=== PATIENT | female | born 1935 | race Caucasian/White ===

== ENCOUNTER → 2016-06-25 | Day surgery (SDC) | payer OTHER, MEDICARE ==
[2016-06-24 07:36] VITALS: BMI 27.0
[~2016-06-25] VITALS: Ht 149.9 cm; Wt 60.9 kg
[~2016-06-25] MED LIST: ASPI81TA28 PO; CHOL1000 PO; CLOB-65 EXT; CLOP1TAB15 PO; GEMF600T3 PO; LEVO75TA PO; LIDOCAINE HCL 2% 2 ML VIAL (20MG/ML) ONE; MOME50SP5; MULTTAB58 PO; PANT40TA PO; PLV75 PO; PROPOFOL IV EMULSION 10 MG/ML 20 ML VIAL IV ONE
[2016-06-25 09:13] VITALS: Ht 149.9 cm; Wt 60.9 kg
--- NOTE | 2016-06-25 09:30 | Endo History and Physical ---
History & Physical Date of Service: June 25, 2016. Chief Complaint: heme positive stool Referring Physician: Dr. MALDONADO History of Present Illness Hemoccult positive stool Past Surgical History Hx Cardiac Surgery: No Hx Internal Defibrillator: No Hx Pacemaker: No Hx Abdominal Surgery: No Hx of Implantable Prosthesis: No Hx Post-Op Nausea and Vomiting: No Hx Cancer Surgery: No Hx Thoracic Surgery: No Hx Orthopedic: Yes (RT RCR) Hx Urinary Tract Surgery: No Family History Colon CA Social History Smoking Status: Never Smoker Hx Substance Use: No Hx Alcohol Use: Yes (1 GLASS OF WINE DAILY) Allergies Coded Allergies: Pneumococcal Polysaccharides (Verified Allergy, Intermediate, local reaction, 06/25/16) Alendronate (Verified Adverse Reaction, Intermediate, GI upset, 06/25/16) Ezetimibe (Verified Adverse Reaction, Intermediate, elevated LFT's, ) Citalopram (Verified Adverse Reaction, Mild, headache, 06/25/16) Current Medications Reported Home Medications Medications Dose Route/Sig Max Daily Dose Days Date Category Plavix (Clopidogrel Bisulfate) 75 Mg Tab 75 Mg PO DAILY 06/25/16 Reported Aspirin Ec (Aspirin) 81 Mg Tab 81 Mg PO DAILY 06/25/16 Reported Lopid (Gemfibrozil) 600 Mg Tab 600 Mg PO BID 06/24/16 Reported Vitamin D3 (Cholecalciferol) 1,000 Unit Tab 1 Tab PO BID 90 06/24/16 Reported Protonix (Pantoprazole Sodium) 40 Mg Tab 40 Mg PO BID 06/24/16 Reported Nasonex (Mometasone Furoate) Hur[place] 1 Hurlock NA DAILY PRN 02/03/13 Reported Temovate 0.05% (Clobetasol Propionate) Cr 1 Appln EXT BID PRN 02/03/13 Reported Synthroid (Levothyroxine Sodium) 75 Mcg Tab 75 Mcg PO QAM 02/03/13 Reported Multivitamin (Multiple Vitamin) 1 Tab Tab 1 Tab PO QAM 12/05/11 Reported Vital Signs Weight (Kilograms): 60.91 Height (Feet): 4 Height (Inches): 11 Physical Exam General Appearance: WD/WN, no apparent distress Respiratory/Chest: Auscultation: breath sounds normal, no wheezing Cardiovascular: Heart Auscultation: RRR, no murmurs Abdomen: Inspection & Palpation: soft, no tenderness, guarding & rebound Assessment and Plan EGD today.
--- NOTE | 2016-06-25 09:56 | GI REPORT ---
Procedure Date: 06/25/2016 9:36 AM Procedure: Upper GI endoscopy Indications: Heme positive stool Medicines: Monitored Anesthesia Care Complications: No immediate complications. Estimated blood loss: None. Estimated Blood Loss: Estimated blood loss: none. Procedure: Pre-Anesthesia Assessment: - Prior to the procedure, a History and Physical was performed, and patient medications, allergies and sensitivities were reviewed. The patient's tolerance of previous anesthesia was reviewed. - ASA Grade Assessment: III - A patient with severe systemic disease. After obtaining informed consent, the endoscope was passed under direct vision. Throughout the procedure, the patient's blood pressure, pulse, and oxygen saturations were monitored continuously. The Scope was introduced through the mouth, and advanced to the third part of duodenum. The upper GI endoscopy was accomplished with ease. The patient tolerated the procedure well. Findings: The upper third of the esophagus, middle third of the esophagus and lower third of the esophagus were normal. The Z-line was regular. A small hiatus hernia was present. The entire examined stomach was normal. Biopsies were taken with a cold forceps for Helicobacter pylori testing. The examined duodenum was normal. Verification of patient identification for the specimen was done by the physician and nurse using the patient's name, date and medical record number. Impression: - Normal upper third of esophagus, middle third of esophagus and lower third of esophagus. - Z-line regular. - Small hiatus hernia. - Normal stomach. Biopsied. - Normal examined duodenum. Recommendation: - Perform a colonoscopy at appointment to be scheduled. - Await pathology results. - Continue present medications. - Discharge patient to home (with escort). Marcio Mullins M.D. Marcio Mullins MD 06/25/2016 9:55:21 AM This report has been signed electronically. Note Initiated On: 06/25/2016 9:36 AM I attest to the content of the Intraoperative Record and orders documented therein, exceptions below
--- NOTE | 2016-06-25 10:11 | Discharge Instructions ---
Endoscopy Patient Instructions Date / Procedure(s) Performed June 25, 2016. EGD Allergy Information Coded Allergies: Pneumococcal Polysaccharides (Verified Allergy, Intermediate, local reaction, 06/25/16) Alendronate (Verified Adverse Reaction, Intermediate, GI upset, 06/25/16) Ezetimibe (Verified Adverse Reaction, Intermediate, elevated LFT's, ) Citalopram (Verified Adverse Reaction, Mild, headache, 06/25/16) Discharge Date / Findings June 25, 2016. Small hiatal hernia, gastric biopsy for H pylori obtained. Medication Instructions Stopped Medication(s): plavix stopped. Restart Stopped Medication(s): Restart all medications. Colonoscopy to be scheduled. Provider Instructions Activity Restrictions - No exercising or heavy lifting for 24 hours. - Do not drink alcohol the day of the procedure. - Do not drive a car or operate machinery until the day after the procedure. - Do not make any important decisions or sign important papers in 24 hours after the procedure. Following Day: - Return to full activity which may include returning to work/school. Diet Start your diet with liquids and light foods (jello, soup, juice, toast). Then eat your usual diet if not nauseated. Treatment For Common After Affects For mild abdominal pain, bloating, or excessive gas: - Rest - Eat lightly - Lie on right side Follow-Up Information Follow-up with Dr. MALDONADO as scheduled Anesthesia Information What You Should Know You have had a procedure that required some medicine to reduce anxiety and discomfort. This treatment is called moderate sedation. After receiving the treatment, you may be sleepy, but you will be able to breathe on your own. The effects of the treatment may last for several hours. Follow these instructions along with Activity/Diet recommendations noted above: * Do NOT do anything where dizziness or clumsiness would be dangerous. * Rest quietly at home today, then you can be up and about tomorrow. * Have a responsible person stay with you the rest of today. * You may have had an I.V. today. If so, you may take the dressing off later today. Recommendations Call your doctor if: * Trouble breathing * Continuous vomiting for more than 24 hours * Temperature above 101 degrees * Severe abdominal pain or bloating * Pain not relieved by pain medicine ordered * There is increased drainage or redness from any incision * A large amount of rectal bleeding greater than 2-3 tablespoons. (If you had a polyp/s removed or have hemorrhoids, a small amount of blood - from the rectum is to be expected.) * You have any unanswered questions or concerns. IN THE EVENT OF A SERIOUS EMERGENCY, GO TO THE NEAREST EMERGENCY ROOM Your discharge instructions were prepared by provider Marcio Mullins. Patient Instructions Signature Page Jeniffer Lin Patient (or Guardian) Signature/Date: I have read and understand the instructions given to me by my caregivers. Caregiver/RN/Doctor Signature/Date: The above-named patient and/or guardian has received patient instructions on this date. + Original Patient Signature Page (only) stays with chart. Please make copy for patient.
[2016-06-25 10:25] VITALS: BP 108/67; PULSE 62; O2SAT 96
--- NOTE | 2016-06-25 10:58 | Anesthesia Progress Nt - [facility] ---
Anesthesia Post Op Note Date & Time June 25, 2016 at 10:58 Vital Signs Pain Intensity: 0 Vital Signs Past 12 Hours Date Time Temp Pulse Resp B/P Pulse Ox O2 Delivery O2 Flow Rate FiO2 06/25/16 10:09 62 20 115/67 96 Room Air 06/25/16 09:54 59 20 113/68 96 Room Air 06/25/16 09:22 36 60 20 133/72 97 Room Air Notes Mental Status: alert / awake / arousable, participated in evaluation Pt Amnestic to Procedure: Yes Nausea / Vomiting: adequately controlled Pain: adequately controlled Airway Patency, RR, SpO2: stable & adequate BP & HR: stable & adequate Hydration State: stable & adequate Anesthetic Complications: no major complications apparent
== END | disposition home or self-care (01) ==
LOC: C.GI 08:46
PROVIDERS: ATTEND Internal Medicine Gastroenterology
DX: K44.9 Diaphragmatic hernia without obstruction or gangrene (principal); R19.5 Other fecal abnormalities; Z80.0 Family history of malignant neoplasm of digestive organs; Z79.82 Long term (current) use of aspirin; Z79.899 Other long term (current) drug therapy; Z79.02 Long term (current) use of antithrombotics/antiplatelets

== ENCOUNTER 2021-07-24 16:54 | Observation (INO) ==
[2021-07-24 17:42] LABS: iSTAT Creatinine 0.5 mg/dl (0.6-1.3); iSTAT Ionized Calcium 1.19 mmol/l (1.12-1.32); iSTAT Potassium 4.1 mmol/L (3.3-5.0)
[2021-07-24] MEDS ORDERED: MoRPHine SULFATE 4 MG/ML 1 ML CARP\\VIAL IV STA ×2 (17:49→19:04)
[2021-07-24] MEDS ORDERED: ONDANSETRON INJ 2 MG/ML 2 ML VIAL IV STA (17:49)
[2021-07-24 17:56] LABS: Albumin Globulin Ratio 1.4 (0.9-2); Albumin Level 4.7 gm/dl (3.4-5.0); BUN Creatinine Ratio 31.7 (10-20); Bilirubin,Total 0.5 mg/dl (0.2-1.0); Calcium 9.8 mg/dl (8.5-10.1); Creatinine Clr Calc Pharmacy 57.9 ml/min; Est GFR (Non-African American) 83.7 ml/min; Globulin 3.3 gm/dl (2.5-4.0); Potassium 3.9 mmol/L (3.5-5.1)
[2021-07-24 17:57] LABS: Partial Thromboplastin Time 27.2 Seconds (21.0-31.0); Prothrombin Time 10.9 Seconds (9.0-12.0)
[2021-07-24 17:58] LABS: Basophils # (auto) 0.03 K/uL (0-0.2); Basophils % (auto) 0.5 %; Eosinophils # (auto) 0.08 K/uL (0-0.5); Eosinophils % (auto) 1.2 %; Hematocrit (blood only) 41.8 % (37-47); Hemoglobin 14.4 g/dL (12.0-16.0); Immature Granulocytes # (auto) 0.02 K/uL (0.00-0.02); Immature Granulocytes % (auto) 0.3 %; Lymphocytes # (auto) 1.98 K/uL (1.2-3.4); Mean Corpuscular Hemoglobin 30.9 pg (25-34); Mean Corpuscular Hgb Conc 34.4 g/dL (32-36); Mean Corpuscular Volume 89.7 fL (80-100); Mean Platelet Volume 9.7 fL (7.4-10.4); Monocytes # (auto) 0.65 K/uL (0.11-0.59); Monocytes % (auto) 9.8 %; Neutrophils # (auto) 3.84 K/uL (1.4-6.5); Neutrophils % (auto) 58.2 %; Platelet Count 333 K/uL (130-400); RDW Coefficient of Variation 12.8 % (11.5-14.5); RDW Standard Deviation 41.5 fL (36.4-46.3); Red Blood Count 4.66 M/uL (4.2-5.4)
[2021-07-24 18:00] LABS: Troponin I High Sensitivity 3.5 pg/ml (0-14)
--- NOTE | 2021-07-24 18:23 | Emergency Department Note ---
Impression & Plan Acute thoracic back pain, Chest pain, Chronic hyponatremia ED Provider Note Provider: Jay Gardner MD DATE OF SERVICE: 07/24/2021 CHIEF COMPLAINT: Referred for left shoulder blade pain HISTORY OF PRESENT ILLNESS: Patient is a 85-year-old female past medical history of hypothyroidism, PVD, and TIA presenting here referred from the outpatient clinic today for onset 2 days ago of some pain around the left shoulder. Does not recall any lifting or trauma but worsened yesterday into today. Patient states a little bit of shortness of breath mainly related to the pain which is worse with certain movements. Patient denies any numbness or tingling in her arms. She denies any abdominal pain. Movement of the left frontal to anterior chest tightness. She has been trying some Tylenol which did not help much. No reported leg swelling or pain in the lower extremities. REVIEW OF SYSTEMS: A total of 10 review of systems was obtained and negative except as stated above in the HPI. PAST MEDICAL HISTORY: As noted above MEDICATIONS: Reviewed home medication list SOCIAL HISTORY: Lives at home by herself, non-smoker PHYSICAL EXAM: GENERAL: alert and oriented however appears uncomfortable laying on her right side on the bed grimacing Head: normocephalic and atraumatic EYES: No injection, discharge or icterus. NECK: Trachea midline. LUNGS: Airway patent. No retractions. Breath sounds clear with good air entry bilaterally. HEART: Regular rate and rhythm. No chest wall tenderness ABDOMEN: Soft and non-tender, without guarding or rebound. No hepatosplenomegaly or masses BACK: No midline tenderness, some very slight left thoracic tenderness medial scapula. SKIN: Acyanotic, warm, dry, without rashes EXTREMITIES: Without swelling, tenderness or deformity with 2+ bilateral radial pulses. NEUROLOGICAL: No focal deficits. No aphasia. No facial droop or slurred speech. EK bpm sinus rhythm first-degree AV block. No PVC or PAC. No acute ST segment elevation or depression with a QTC of 435. CONTINUOUS CARDIAC MONITORING: was ordered and showed a heart rate of 60s-80s b pm in normal sinus rhythm PDMP was checked without noted issue. Patient's laboratory studies and imaging reviewed. Differential includes Cardiac ischemia, aortic dissection, pulmonary embolism, pneumothorax, pneumonia, pericarditis, myocarditis, esophageal rupture, GERD, cholecystitis, pancreatitis, musculoskeletal, as well as other pathologies. IMPRESSION/MEDICAL DECISION MAKING: Severe atraumatic pain of the left shoulder blade with some radiation of the anterior left chest. Patient with significant discomfort but not hypoxic here. Question possible dissection with lower suspicion for PE. Not having other infectious symptoms. EKG without findings concerning for STEMI at this time. Less likely to be cardiac but troponin was sent. Given some morphine for pain. Sent for CT dissection study of the chest. Patient not having other abdominal swelling or lower extremity swelling or pain. Doubt this is spinal in nature. Doubt heart failure at this time. There is no traumatic history indicative of bony injury orthopedic injury. No significant hypersensitivity of skin or overlying rash at this time consistent with zoster. Blood work without anemia or leukocytosis. Chronic hyponatremia. No significant renal dysfunction or findings consistent with hepatitis or pancreatitis. Negative COVID test. CT of the chest per radiology without evidence of dissection or other acute intrathoracic pathology. Unclear etiology for the patient severe pain required several doses of morphine. Given a little bit of Toradol. Given her age with the severity of the pain which is poorly controlled at this time and feel that further observation could be beneficial for pain regimen optimization and urther elucidation of other possible pathology. Patient was in agreement and the hospitalist contacted. DIAGNOSIS: Intractable acute left thoracic back pain, chest pressure, chronic hyponatremia DISPOSITION: Hospitalist will evaluate Patient was agreeable with this plan. Past Med/Surg History Medical History (Updated 07/24/21 @ 22:11 by Jay Gardner M.D.) Anxiety GERD (gastroesophageal reflux disease) History of colon polyps History of gastric ulcer Hyperlipidemia Hypothyroidism On anticoagulant therapy plavix daily Transient ischemic attack (TIA) 2014--no deficits--reason for plavix Surgical History History of bilateral tubal ligation History of cataract surgery RIGHT CATARACT on 07/27/18: was given 2mg of IV versed History of colonoscopy History of dilatation and curettage History of esophagogastroduodenoscopy (EGD) History of left breast biopsy benign History of repair of right rotator cuff Family History Mother Family history of diabetes mellitus Daughter Family hx of colon cancer Other No family history of adverse response to anesthesia Social History Smoking Status: Never smoker Second Hand Exposure: No; Hx Alcohol Use: Yes Alcohol type: wine Hx Substance Use: No Preferred Language: Maltese Communication Ability: Effective Board Certified Behavioral Analyst Required: No Beliefs That Will Affect Care: None Current Living Situation: Spouse Feels Safe at Home: Yes Assistive Devices: Glasses Allergies Allergies Allergy/AdvReac Type Severity Reaction Status Date / Time pneumococcal vaccine Allergy Intermediate local Verified 07/24/21 17:55 reaction alendronate sodium AdvReac Intermediate GI upset Verified 07/24/21 17:55 calcium AdvReac Intermediate bloating, Verified 07/24/21 17:55 constipation citalopram AdvReac Intermediate headache Verified 07/24/21 17:55 ezetimibe AdvReac Intermediate elevated Verified 07/24/21 17:55 LFT's Home Meds Home Medications Medication Instructions Recorded Confirmed ascorbic acid (vitamin C) 500 mg 500 mg PO QDL 07/05/18 07/24/21 tablet (Vitamin C) cholecalciferol (vitamin D3) 25 2,000 unit PO QDL 07/05/18 07/24/21 mcg (1,000 unit) tablet clopidogrel 75 mg tablet (Plavix) 75 mg PO QAM 07/05/18 07/24/21 gemfibrozil 600 mg tablet 600 mg PO BID 07/05/18 07/24/21 polyethylene glycol 3350 17 17 g PO QAM 07/05/18 07/24/21 gram/dose oral powder (Miralax) cyanocobalamin (vitamin B-12) 1,000 mcg PO DAILY 07/24/21 07/24/21 1,000 mcg tablet (Vitamin B-12) fluticasone propionate 50 2 spray INTRANASAL DAILY PRN 07/24/21 07/24/21 mcg/actuation nasal spray,suspension levothyroxine 88 mcg tablet 88 mcg PO DAILYBB 07/24/21 07/24/21 [id number] 1 tab PO DAILY 07/24/21 07/24/21 tablet (Multivitamin 50 Plus) Results & Data (ED) Vital Signs Vital Signs - 24 hr 07/24/21 16:57 07/24/21 17:45 07/24/21 17:46 Temperature 36.4 C L Temperature Source Temporal Artery Scan Pulse Rate 69 72 Pulse Rate [Finger] 71 Respiratory Rate 20 18 18 Respiratory Effort / Characteristics Non-Labored Respiratory Depth Normal Blood Pressure 172/86 H Blood Pressure [Right Arm] 161/88 H Blood Pressure Mean 114 Blood Pressure Mean [Right Arm] 112 Blood Pressure Position Sitting Pulse Oximetry 97 96 96 Oxygen Delivery Method Room Air Room Air Room Air Sepsis Recent Fever Within 48 Hours No Sepsis New/Unexplained Change in Mental Status No Sepsis Action Taken by Nursing No Action Required 07/24/21 19:16 07/24/21 21:12 Temperature Temperature Source Pulse Rate Pulse Rate [Finger] 77 70 Respiratory Rate 18 18 Respiratory Effort / Characteristics Respiratory Depth Blood Pressure Blood Pressure [Right Arm] 123/85 155/85 H Blood Pressure Mean Blood Pressure Mean [Right Arm] 97 108 Blood Pressure Position Pulse Oximetry 97 95 Oxygen Delivery Method Room Air Room Air Sepsis Recent Fever Within 48 Hours Sepsis New/Unexplained Change in Mental Status Sepsis Action Taken by Nursing Laboratory Data Result diagrams: 07/24/21 17:19 07/24/21 17:19 Lab Results 07/24/21 07/24/21 07/24/21 Range/Units 17:19 17:19 17:19 WBC 6.60 (4.8-10.8) K/uL RBC 4.66 (4.2-5.4) M/uL Hgb 14.4 (12.0-16.0) g/dL POC Hgb (12.0-16.0) g/dl Hct 41.8 (37-47) % POC Hct (37-47) % MCV 89.7 (80-100) fL MCH 30.9 (25-34) pg MCHC 34.4 (32-36) g/dL RDW Std Deviation 41.5 (36.4-46.3) fL RDW Coeff of Jeanie 12.8 (11.5-14.5) % Plt Count 333 (130-400) K/uL MPV 9.7 (7.4-10.4) fL Immature Gran % (Auto) 0.3 % Neut % (Auto) 58.2 % Lymph % (Auto) 30.0 % Wayne % (Auto) 9.8 % Eos % (Auto) 1.2 % Baso % (Auto) 0.5 % Neut # (Auto) 3.84 (1.4-6.5) K/uL Lymph # (Auto) 1.98 (1.2-3.4) K/uL Wayne # (Auto) 0.65 H (0.11-0.59) K/uL Eos # (Auto) 0.08 (0-0.5) K/uL Baso # (Auto) 0.03 (0-0.2) K/uL Immature Gran # (Auto) 0.02 (0.00-0.02) K/uL PT 10.9 (9.0-12.0) Seconds INR 1.0 (0.9-1.1) APTT 27.2 (21.0-31.0) Seconds PTT Ratio 1.0 POC Sodium (135-144) mmol/L Sodium 130 L (136-145) mmol/L POC Potassium (3.3-5.0) mmol/L Potassium 3.9 (3.5-5.1) mmol/L POC Chloride (101-112) mmol/L Chloride 97 L (98-107) mmol/L Carbon Dioxide 26 (21-32) mmol/L POC Total CO2 (24-31) mmol/L Anion Gap 7 (3-11) POC Anion Gap (16-25) mmol/L POC BUN (7-18) mg/dl BUN 19 (6-23) mg/dl Creatinine 0.60 (0.6-1.2) mg/dl POC Creatinine (0.6-1.3) mg/dl Est Cr Clr Drug Dosing 57.9 ml/min Est GFR ( Amer) 97.0 ml/min Est GFR (Non-Af Amer) 83.7 ml/min BUN/Creatinine Ratio 31.7 H (10-20) Glucose 90 (70-99(Fasting)) mg/dl POC Glucose (other) (70-99) mg/dl Calcium 9.8 (8.5-10.1) mg/dl POC Ioniz Calcium Jennifer (1.12-1.32) mmol/l Total Bilirubin 0.5 (0.2-1.0) mg/dl AST 36 (13-39) U/L ALT 17 (7-52) U/L Alkaline Phosphatase 54 (34-104) U/L Troponin I High Sens 3.5 (0-14) pg/ml Total Protein 8.0 (6.0-8.3) gm/dl Albumin 4.7 (3.4-5.0) gm/dl Globulin 3.3 (2.5-4.0) gm/dl Albumin/Globulin Ratio 1.4 (0.9-2) Lipase (11-82) U/L SARS-CoV-2, RNA, NAAT (NEGATIVE) 07/24/21 07/24/21 07/24/21 Range/Units 17:19 17:25 20:05 WBC (4.8-10.8) K/uL RBC (4.2-5.4) M/uL Hgb (12.0-16.0) g/dL POC Hgb 15.0 (12.0-16.0) g/dl Hct (37-47) % POC Hct 44 (37-47) % MCV (80-100) fL MCH (25-34) pg MCHC (32-36) g/dL RDW Std Deviation (36.4-46.3) fL RDW Coeff of Jeanie (11.5-14.5) % Plt Count (130-400) K/uL MPV (7.4-10.4) fL Immature Gran % (Auto) % Neut % (Auto) % Lymph % (Auto) % Wayne % (Auto) % Eos % (Auto) % Baso % (Auto) % Neut # (Auto) (1.4-6.5) K/uL Lymph # (Auto) (1.2-3.4) K/uL Wayne # (Auto) (0.11-0.59) K/uL Eos # (Auto) (0-0.5) K/uL Baso # (Auto) (0-0.2) K/uL Immature Gran # (Auto) (0.00-0.02) K/uL PT (9.0-12.0) Seconds INR (0.9-1.1) APTT (21.0-31.0) Seconds PTT Ratio POC Sodium 132 L (135-144) mmol/L Sodium (136-145) mmol/L POC Potassium 4.1 (3.3-5.0) mmol/L Potassium (3.5-5.1) mmol/L POC Chloride 97 L (101-112) mmol/L Chloride (98-107) mmol/L Carbon Dioxide (21-32) mmol/L POC Total CO2 25 (24-31) mmol/L Anion Gap (3-11) POC Anion Gap 15.0 L (16-25) mmol/L POC BUN 19 H (7-18) mg/dl BUN (6-23) mg/dl Creatinine (0.6-1.2) mg/dl POC Creatinine 0.5 L (0.6-1.3) mg/dl Est Cr Clr Drug Dosing ml/min Est GFR ( Amer) ml/min Est GFR (Non-Af Amer) ml/min BUN/Creatinine Ratio (10-20) Glucose (70-99(Fasting)) mg/dl POC Glucose (other) 94 (70-99) mg/dl Calcium (8.5-10.1) mg/dl POC Ioniz Calcium Jennifer 1.19 (1.12-1.32) mmol/l Total Bilirubin (0.2-1.0) mg/dl AST (13-39) U/L ALT (7-52) U/L Alkaline Phosphatase (34-104) U/L Troponin I High Sens (0-14) pg/ml Total Protein (6.0-8.3) gm/dl Albumin (3.4-5.0) gm/dl Globulin (2.5-4.0) gm/dl Albumin/Globulin Ratio (0.9-2) Lipase 46 (11-82) U/L SARS-CoV-2, RNA, NAAT NEGATIVE (NEGATIVE) Administered Medications Discontinued Medications Ioversol (Optiray 320 125ml) 120 ml IV ONCE ONE Stop: 07/24/21 18:36 Last Admin: 07/24/21 18:36 Dose: 120 ml Documented by: [id number] Ketorolac Tromethamine (Ketorolac Tromethamine 15 Mg/Ml Vial) 10 mg IV NOW ONE Stop: 07/24/21 19:51 Last Admin: 07/24/21 20:01 Dose: 10 mg Documented by: [id number] Morphine Sulfate (Morphine Sulfate 4 Mg/Ml 1 Ml Carp\Vial) 4 mg IV NOW STA Stop: 07/24/21 17:50 Last Admin: 07/24/21 17:53 Dose: 4 mg Documented by: [id number] Morphine Sulfate (Morphine Sulfate 4 Mg/Ml 1 Ml Carp\Vial) 4 mg IV NOW STA Stop: 07/24/21 19:05 Last Admin: 07/24/21 19:12 Dose: 4 mg Documented by: [id number] Ondansetron HCl (Ondansetron Inj 2 Mg/Ml 2 Ml Vial) 4 mg IV NOW STA Stop: 07/24/21 17:50 Last Admin: 07/24/21 17:53 Dose: 4 mg Documented by: [id number] Imaging Data Radiologist's Impression: Chest X-Ray 07/24/21 17:31 XR chest 1V portable CLINICAL HISTORY: Atypical chest pain TECHNIQUE: Single frontal radiograph of the chest was obtained. Comparison: Comparison is made to chest radiograph 02/03/2013 FINDINGS: No lines and tubes are seen. Calcified aortic knob is seen. The aorta is tortuous. The lungs are clear. No evidence of pleural effusion or pneumothorax. IMPRESSION: No acute chest disease. ACT 112: Negative or not required by law. Electronically signed by: Mono Long M.D. 07/24/2021 6:20 PM Chest CTA 07/24/21 17:49 CT angio chest dissec wo/w con CLINICAL HISTORY: L shoulder pain to chest pain severe TECHNIQUE: Multidetector row helical CT of the chest was performed before and after injection of IV contrast. Coronal and sagittal reformations were obtained. Automated dose lowering techniques and/or adjustment according to patient size were utilized for this exam. CT DOSE: 751.53 mGy.cm Comparison: None available at the time of this dictation. FINDINGS: Lungs and pleura: Atelectasis versus scarring is seen in the dependent portions of the lungs. Heart and pericardium: Heart size is normal. No pericardial effusion. Vessels: No aortic dissection or intramural hematoma is seen. Atherosclerotic disease is seen in the coronary arteries. Mediastinum and fernando: Unremarkable. Chest wall and lower neck: Unremarkable. Abdomen: Unremarkable. Bones: Degenerative changes in the thoracic spine. Multilevel compression deformities are seen, favored to be chronic. IMPRESSION: No acute abnormality and in particular no evidence of acute aortic injury. Multilevel thoracic spinal compression deformities are favored to be chronic. ACT 112: Negative or not required by law. Electronically signed by: Mnoo Long M.D. 07/24/2021 7:24 PM Discharge Plan Visit Data Chief Complaint: Back Injury/Pain Stated Complaint: BACK PAIN ED Provider: Jay Gardner Discharge Problem: Acute thoracic back pain, Chest pain, Chronic hyponatremia Patient Disposition: Being Evaluated by Hospitalist Forms Stand Alone Forms: Flipboard Prescriptions Prescriptions: No Action polyethylene glycol 3350 [Miralax] 17 gram/dose Powder 17 g PO QAM RF: 0 clopidogrel [Plavix] 75 mg Tablet 75 mg PO QAM RF: 0 ascorbic acid (vitamin C) [Vitamin C] 500 mg Tablet 500 mg PO QDL RF: 0 gemfibrozil 600 mg Tablet 600 mg PO BID RF: 0 cholecalciferol (vitamin D3) 1,000 unit Tablet 2,000 unit PO QDL RF: 0 cyanocobalamin (vitamin B-12) [Vitamin B-12] 1,000 mcg Tablet 1,000 mcg PO DAILY RF: 0 levothyroxine 88 mcg tablet 88 mcg PO DAILYBB RF: 0 fluticasone propionate [Flonase] 50 mcg/actuation Nogal,Suspension 2 spray INTRANASAL DAILY PRN (Reason: Congestion) RF: 0 Multivitamin 50 Plus Tablet 1 tab PO DAILY RF: 0 Referrals Referrals: Kaylee Watts MD [Primary Care Provider] -
[2021-07-24] MEDS ORDERED: OPTIRAY 320 125ml IV ONE (18:35)
--- NOTE | 2021-07-24 19:27 | CT Scan Report ---
CT angio chest dissec wo/w con CLINICAL HISTORY: L shoulder pain to chest pain severe TECHNIQUE: Multidetector row helical CT of the chest was performed before and after injection of IV c ontrast. Coronal and sagittal reformations were obtained. Automated dose lowering techniques and/or a djustment according to patient size were utilized for this exam. CT DOSE: 751.53 mGy.cm Comparison: None available at the time of this dictation. FINDINGS: Lungs and pleura: Atelectasis versus scarring is seen in the dependent portions of the lungs. Heart and pericardium: Heart size is normal. No pericardial effusion. Vessels: No aortic dissection or intramural hematoma is seen. Atherosclerotic disease is seen in the coronary arteries. Mediastinum and fernando: Unremarkable. Chest wall and lower neck: Unremarkable. Abdomen: Unremarkable. Bones: Degenerative changes in the thoracic spine. Multilevel compression deformities are seen, favor ed to be chronic. IMPRESSION: No acute abnormality and in particular no evidence of acute aortic injury. Multilevel thoracic spinal compression deformities are favored to be chronic. ACT 112: Negative or not required by law. Electronically signed by: Mono Long M.D. 07/24/2021 7:24 PM
[2021-07-24] MEDS ORDERED: KETOROLAC TROMETHAMINE 15 MG/ML VIAL IV ONE (19:50)
--- NOTE | 2021-07-24 22:55 | History and Physical Report ---
DATE OF ADMISSION: 07/24/2021. CHIEF COMPLAINT: Severe left shoulder blade pain. HISTORY OF PRESENT ILLNESS: This is an 85-year-old female with past medical history significant for hypothyroidism, hyperlipidemia, atherosclerosis of both carotid arteries, internal hemorrhoids, nonalcoholic fatty liver disease, history of sigmoid diverticulosis, senile osteoporosis, history of colonic polyps, history of TIA, obesity, history of peptic ulcer disease, statin intolerance, who lives at home, presents with severe left shoulder pain. The patient's stretched her hands to pick something on the cupboard on Wednesday and since then she has some soreness on Wednesday, Wednesday. Since Wednesday night, she is having significant pain. Any movement causing significant shooting pain, that is the reason she came here. No pain in the arms. Yesterday, she had some pain radiating to the chest, mild chest discomfort that is gone now. Denies any shortness of breath. No nausea, no vomiting, no dizziness, no headache, no neck pain, no back pain, no leg pains. No blurred visions, no earache, no runny nose, no sore throat, no cough, no fevers. Normal bowel and bladder movements. Currently, resting comfortably and hemodynamically stable. With the pain medication, the pain is much improved. ALLERGIES: PNEUMOCOCCAL VACCINE, ALENDRONATE SODIUM, CALCIUM, CITALOPRAM, EZETIMIBE. PAST MEDICAL HISTORY: As mentioned above. PAST SURGICAL HISTORY: Colonoscopy, colonoscopy with biopsy, EGD, ligation of oviducts, cataract surgery, right shoulder arthroscopy. MEDICATIONS: The patient is on ascorbic acid 500 mg p.o. daily, vitamin D 2000 units p.o. daily, Plavix 75 mg p.o. daily, vitamin B12 1000 mcg p.o. daily, Flonase 2 sprays intranasal daily p.r.n., gemfibrozil 600 mg p.o. b.i.d., levothyroxine 88 mcg p.o. daily, multivitamins 1 tablet p.o. daily, MiraLax 17 g p.o. daily. FAMILY HISTORY: Significant for mother had lymphoma, father has heart disorder, daughter has colon cancer. SOCIAL HISTORY: . No smoking. Alcohol, one glass of wine with dinner. No drug use. REVIEW OF SYSTEMS: As per HPI. Rest of the review of systems is negative. PHYSICAL EXAMINATION: GENERAL: The patient is of moderate build, not in acute distress. VITAL SIGNS: Temperature 36.4, pulse 70, respiratory rate 18, blood pressure 155/85, oxygen 95% on room air. HEENT: Pupils equal, round, and reactive to light. Oral mucosa moist. LUNGS: No JVD, no neck masses. CARDIOVASCULAR: S1 and S2 heard. Regular rate and rhythm. No murmur, no gallop. RESPIRATORY SYSTEM: Normal AP diameter. No accessory muscle use. No wheezing, no crackles. ABDOMEN: Soft. Bowel sounds are present, nontender, no distention. CENTRAL NERVOUS SYSTEM: Cranial nerves II through XII are grossly intact, nonfocal. EXTREMITIES: No edema, no erythema. MUSCULOSKELETAL: Point tenderness in the left shoulder blade. Range of movements is normal in the left upper extremity. LABORATORY DATA: WBC 6.6, hemoglobin 14.4, hematocrit 41.8, platelets 333. PT 10.9, INR 1, APTT 27.2. Sodium 130, potassium 3.9, chloride 97, CO2 of 26, BUN 19, creatinine 0.6, serum glucose 90, calcium 9.8, total bilirubin 0.5, AST 36, ALT17, alkaline phosphatase 54. Troponin 1 high sensitivity 3.5. Lipase 46. SARS-CoV-2 rapid test negative. IMAGING DATA: Chest x-ray, no acute disease. CT of the chest, no acute abnormality, multilevel thoracic spine compression deformities, are favored to be chronic. EKG: Sinus rhythm with first-degree AV block at a rate of 68, no significant change was found. ASSESSMENT AND PLAN: This is an 85-year-old female who presents with severe left shoulder blade pain and also mild chest discomfort, currently resolved. 1. Severe left shoulder blade pain: Improved with the pain medication given in the ER. Imaging studies are unremarkable. Will observe in the hospital. When stable, PT, OT, pain control. If not improving, may need to consult pain management. 2. Mild chest discomfort: Could be from the left shoulder blade pain, currently asymptomatic. Will follow the repeat EKG and repeat troponins and if any concern, will get echo and cardiac consult. 3. History of hypothyroidism: Continue Synthroid. 4. Hyperlipidemia: On gemfibrozil. 5. History of transient ischemic attack: On Plavix and gemfibrozil. 6. Deep venous thrombosis prophylaxis: Lovenox. DISPOSITION: Observe in med tele. PT/OT prior to discharge. Social service to help with discharge planning. Job ID: [id number] [facility] HOSPITALNayeli
[2021-07-24] MEDS ORDERED: ENOXAPARIN INJ 40 MG/0.4 ML SYR SQ SCH (23:22)
[2021-07-24] MEDS ORDERED: ACETAMINOPHEN 325 MG TAB PO PRN (23:22)
[2021-07-24] MEDS ORDERED: HYDROmorphone INJ 0.5 MG/0.5 ML SYR IV PRN (23:22)
[2021-07-24] MEDS ORDERED: ONDANSETRON INJ 2 MG/ML 2 ML VIAL IV PRN (23:22)
[2021-07-24] MEDS ORDERED: oxyCODONE HCL IR 5 MG TAB (IMMEDIATE RELEASE) PO PRN (23:22)
[2021-07-24] MEDS ORDERED: NITROGLYCERIN SL 0.4 MG/TAB TAB SL PRN (23:22)
[2021-07-24] MEDS ORDERED: FLUTICASONE PROPIONATE NA SPR 16 GM BTL PRN (23:22)
[2021-07-25 05:44] LABS: Basophils # (auto) 0.02 K/uL (0-0.2); Basophils % (auto) 0.3 %; Eosinophils # (auto) 0.07 K/uL (0-0.5); Eosinophils % (auto) 1.2 %; Hematocrit (blood only) 38.7 % (37-47); Hemoglobin 13.4 g/dL (12.0-16.0); Immature Granulocytes # (auto) 0.01 K/uL (0.00-0.02); Immature Granulocytes % (auto) 0.2 %; Lymphocytes # (auto) 1.72 K/uL (1.2-3.4); Lymphocytes % (auto) 28.5 %; Mean Corpuscular Hemoglobin 31.1 pg (25-34); Mean Corpuscular Hgb Conc 34.6 g/dL (32-36); Mean Corpuscular Volume 89.8 fL (80-100); Mean Platelet Volume 9.3 fL (7.4-10.4); Monocytes # (auto) 0.69 K/uL (0.11-0.59); Monocytes % (auto) 11.4 %; Neutrophils # (auto) 3.53 K/uL (1.4-6.5); Neutrophils % (auto) 58.4 %; Platelet Count 279 K/uL (130-400); RDW Coefficient of Variation 12.6 % (11.5-14.5); RDW Standard Deviation 41.3 fL (36.4-46.3); Red Blood Count 4.31 M/uL (4.2-5.4); White Blood Count 6.04 K/uL (4.8-10.8)
[2021-07-25 06:08] LABS: BUN Creatinine Ratio 26.6 (10-20); Calcium 9.4 mg/dl (8.5-10.1); Creatinine Clr Calc Pharmacy 54.6 ml/min; Est GFR (Non-African American) 81.9 ml/min; Potassium 4.5 mmol/L (3.5-5.1)
[2021-07-25] MEDS ORDERED: LEVOTHYROXINE SODIUM 88 MCG TABLET PO SCH (06:30)
[2021-07-25] MEDS ORDERED: gemfibroziL 600 MG TAB PO SCH (09:00)
[2021-07-25] MEDS ORDERED: MULTIVITAMIN TAB PO SCH (09:00)
[2021-07-25] MEDS ORDERED: CYANOCOBALAMIN (B-12) 500 MCG TABLET PO SCH (09:00)
[2021-07-25] MEDS ORDERED: POLYETHYLENE (MIRALAX) 17 GM PACK PO SCH (09:00)
[2021-07-25] MEDS ORDERED: CLOPIDOGREL BISULFATE 75 MG TAB PO SCH (09:00)
--- NOTE | 2021-07-25 10:47 | XRay Report ---
XR shoulder LT min 2V routine CLINICAL HISTORY: Left shoulder pain. COMPARISON: None FINDINGS: Alignment of the left shoulder is anatomic. There is no acute fracture. This no suspicious osseous lesion. There is moderate osteoarthritis of the left acromioclavicular joint and mild osteoa rthritis of the glenohumeral joint. IMPRESSION: 1. No acute fracture. 2. Moderate osteoarthritis of the left acromioclavicular joint and mild osteoarthritis of the glenohu meral joint. ACT 112: Negative or not required by law. Electronically signed by: Markel Foote M.D. 07/25/2021 10:45 AM
[2021-07-25] MEDS ORDERED: ASCORBIC ACID 500 MG TAB PO SCH (11:30)
[2021-07-25] MEDS ORDERED: CHOLECALCIFEROL 1,000 UNITS 25 MCG TAB PO SCH (11:30)
--- NOTE | 2021-07-25 11:30 | Electrocardiogram Report ---
Test Reason : Blood Pressure : / mmHG Vent. Rate : 068 BPM Atrial Rate : 068 BPM P-R Int : 218 ms QRS Dur : 076 ms QT Int : 410 ms P-R-T Axes : 048 002 026 degrees QTc Int : 435 ms Sinus rhythm with 1st degree A-V block Possible Left atrial enlargement Left ventricular hypertrophy Abnormal ECG When compared with ECG of 28-AUG-2013 10:37, No significant change was found Confirmed by Shad Diana ([id number]) on 07/25/2021 11:30:20 AM Referred By: REFERRED SELF Confirmed By:Godiwn Diana
--- NOTE | 2021-07-25 11:36 | Electrocardiogram Report ---
Test Reason : Blood Pressure : / mmHG Vent. Rate : 064 BPM Atrial Rate : 064 BPM P-R Int : 220 ms QRS Dur : 078 ms QT Int : 442 ms P-R-T Axes : 064 049 035 degrees QTc Int : 455 ms Sinus rhythm with 1st degree A-V block Otherwise normal ECG When compared with ECG of 24-JUL-2021 17:37, (unconfirmed) No significant change was found Confirmed by Shad Diana ([id number]) on 07/25/2021 11:35:48 AM Referred By: REFERRED SELF Confirmed By:Godwin Diana
--- NOTE | 2021-07-25 13:21 | XCELERA ---
[id number]
--- NOTE | 2021-07-25 14:30 | Hospitalist Progress Note ---
Date of Service July 25, 2021 Assessment & Plan (1) Acute thoracic back pain: Plan: Patient is an 85 yr female who presents with severe left shoulder blade pain and also mild chest discomfort, currently resolved. Left Shoulder/Back Pain Likely musculoskeletal in origin --CTA:No acute abnormality and in particular no evidence of acute aortic injury. Multilevel thoracic spinal compression deformities are favored to be chronic. --No acute fracture. Moderate osteoarthritis of the left acromioclavicular joint and mild osteoarthritis of the glenohumeral joint. --Continue PT/OT --Pain control --Pain resolved Mild chest discomfort: Resolved Normal Troponin --ECHO: Left ventricle wall motion is normal. EF 60 to 65%. Mild aortic regurgitation. EKG no signs of acute ischemia Hypothyroidism: Continue Levothyroxine Hyperlipidemia: On gemfibrozil. H/O TIA Continue Plavix and gemfibrozil DVT Px: Lovenox SQ Code Status Full Code Admission and Anticipated Discharge Date Admission Date: July 24, 2021 Subjective Patient is seen and examined at bedside Left shoulder/Back pain resolved Denies any chest pain, shortness of breath, dizziness, nausea, abdominal pain Offers no other complaints Review of Systems Review of Systems: All systems reviewed & are unremarkable except as noted in Subjective Physical Exam Physical Exam: Physical Exam: Vitals signs as noted above General Appearance:Moderately built and nourished, no apparent distress, Elderly Head: normocephalic, Atraumatic Eyes: normal inspection, EOMI Neck: supple, Trachea midline Respiratory/Chest: Normal breath sounds, CTA, No accessory muscle use Cardiovascular: S1, S2, No murmur Abdomen/GI:Soft, Non tender, Bowel sounds present Extremities/Musculoskeletal:normal inspection, no edema Neurologic/Psych:AAOX3, grossly no focal neurological deficits Skin: normal color, warm Results & Data Results & Data ([facility]) Vital Signs (Past 12 Hours) Vital Signs Temp Pulse Pulse Resp BP Pulse Ox 07/25/21 13:10 36.4 C L 68 16 151/85 H 94 07/25/21 07:41 36.5 C 63 16 130/74 91 07/25/21 04:17 36.4 C L 65 18 120/60 95 07/25/21 03:08 73 Laboratory Results Short CBC 07/24/21 07/25/21 Range/Units 17:19 05:19 WBC 6.60 6.04 (4.8-10.8) K/uL Hgb 14.4 13.4 (12.0-16.0) g/dL Hct 41.8 38.7 (37-47) % Plt Count 333 279 (130-400) K/uL BMP 07/24/21 07/25/21 17:19 05:19 Sodium 130 L 133 L Potassium 3.9 4.5 Chloride 97 L 99 Carbon Dioxide 26 28 BUN 19 17 Creatinine 0.60 0.64 Glucose 90 101 H Calcium 9.8 9.4 Liver Function 07/24/21 Range/Units 17:19 Total Bilirubin 0.5 (0.2-1.0) mg/dl AST 36 (13-39) U/L ALT 17 (7-52) U/L Alkaline Phosphatase 54 (34-104) U/L Albumin 4.7 (3.4-5.0) gm/dl (1) Acute thoracic back pain Back pain laterality: left Qualified Code(s): M54.6 - Pain in thoracic spine
--- NOTE | 2021-07-25 14:36 | Discharge Summary ---
Date of Service July 25, 2021 Admission HPI Per Admitting Provider CHIEF COMPLAINT: Severe left shoulder blade pain. HISTORY OF PRESENT ILLNESS: This is an 85-year-old female with past medical history significant for hypothyroidism, hyperlipidemia, atherosclerosis of both carotid arteries, internal hemorrhoids, nonalcoholic fatty liver disease, history of sigmoid diverticulosis, senile osteoporosis, history of colonic polyps, history of TIA, obesity, history of peptic ulcer disease, statin intolerance, who lives at home, presents with severe left shoulder pain. The patient's stretched her hands to pick something on the cupboard on Wednesday and since then she has some soreness on Wednesday, Wednesday. Since Wednesday night, she is having significant pain. Any movement causing significant shooting pain, that is the reason she came here. No pain in the arms. Yesterday, she had some pain radiating to the chest, mild chest discomfort that is gone now. Denies any shortness of breath. No nausea, no vomiting, no dizziness, no headache, no neck pain, no back pain, no leg pains. No blurred visions, no earache, no runny nose, no sore throat, no cough, no fevers. Normal bowel and bladder movements. Currently, resting comfortably and hemodynamically stable. With the pain m edication, the pain is much improved. Admission Exam Per Admitting Provider PHYSICAL EXAMINATION: GENERAL: The patient is of moderate build, not in acute distress. VITAL SIGNS: Temperature 36.4, pulse 70, respiratory rate 18, blood pressure 155/85, oxygen 95% on room air. HEENT: Pupils equal, round, and reactive to light. Oral mucosa moist. LUNGS: No JVD, no neck masses. CARDIOVASCULAR: S1 and S2 heard. Regular rate and rhythm. No murmur, no gallop. RESPIRATORY SYSTEM: Normal AP diameter. No accessory muscle use. No wheezing, no crackles. ABDOMEN: Soft. Bowel sounds are present, nontender, no distention. CENTRAL NERVOUS SYSTEM: Cranial nerves II through XII are grossly intact, nonfocal. EXTREMITIES: No edema, no erythema. MUSCULOSKELETAL: Point tenderness in the left shoulder blade. Range of movements is normal in the left upper extremity. Principal Diagnosis Left Shoulder/Back Pain Arthritis Discharge Data Allergies Allergy/AdvReac Type Severity Reaction Status Date / Time pneumococcal vaccine Allergy Intermediate local Verified 07/24/21 17:55 reaction alendronate sodium AdvReac Intermediate GI upset Verified 07/24/21 17:55 calcium AdvReac Intermediate bloating, Verified 07/24/21 17:55 constipation citalopram AdvReac Intermediate headache Verified 07/24/21 17:55 ezetimibe AdvReac Intermediate elevated Verified 07/24/21 17:55 LFT's Consultations 07/24/21 20:08 ED Decision to Admit Stat Ordered Studies 07/24/21 17:49 CT angio chest dissec wo/w con Stat Hospital Course (1) Acute thoracic back pain: Patient is an 85 yr female who presents with severe left shoulder blade pain and also mild chest discomfort, currently resolved. Left Shoulder/Back Pain Likely musculoskeletal in origin --CTA:No acute abnormality and in particular no evidence of acute aortic injury. Multilevel thoracic spinal compression deformities are favored to be chronic. --No acute fracture. Moderate osteoarthritis of the left acromioclavicular joint and mild osteoarthritis of the glenohumeral joint. --Continue PT/OT --Pain control --Pain resolved Mild chest discomfort: Resolved Normal Troponin --ECHO: Left ventricle wall motion is normal. EF 60 to 65%. Mild aortic regurgitation. EKG no signs of acute ischemia Hypothyroidism: Continue Levothyroxine Hyperlipidemia: On gemfibrozil. H/O TIA Continue Plavix and gemfibrozil DVT Px: Lovenox SQ Code Status Full Code Total Time Total Time Spent Total Time Spent (In Minutes): 42 minutes Discharge Plan Discharge Items Patient Disposition: Home - Self-Care Reason For Visit: SHOULDER BLADE PAIN LEFT SIDE Discharge Diagnosis: Left Shoulder/Back Pain Arthritis Activity: Per Instructions section Exercise/Sports: Gradually increase as tolerated Non-emergency contact: Primary Care Provider Call non-emergency contact if: you have any medication questions, your symptoms worsen, your pain is concerning for you and you have a fever Follow-up/Referrals: Kaylee Watts MD [Primary Care Provider] - Diet: Regular Addtl Attending Provider Instructions: Follow-up with your primary care physician Dr. Watts in 1 week. Please call for appointment. Seek immediate medical attention if your symptoms reoccur or worsen Please take all medications as instructed on discharge list below. Please call if you have any questions or problems. You can reach a [facility] hospitalist on duty at [facility] 24 hours a day by calling [phone] Pending Studies at Discharge: No Stand-Alone Forms: My [facility], Smoking Cessation Medications and DC Order Prescriptions: New ketorolac 10 mg tablet 10 mg PO .daily PRN (Reason: pain) 3 Days Qty: 3 RF: 0 Continued polyethylene glycol 3350 [Miralax] 17 gram/dose Powder 17 g PO QAM RF: 0 clopidogrel [Plavix] 75 mg Tablet 75 mg PO QAM RF: 0 ascorbic acid (vitamin C) [Vitamin C] 500 mg Tablet 500 mg PO QDL RF: 0 gemfibrozil 600 mg Tablet 600 mg PO BID RF: 0 cholecalciferol (vitamin D3) 1,000 unit Tablet 2,000 unit PO QDL RF: 0 cyanocobalamin (vitamin B-12) [Vitamin B-12] 1,000 mcg Tablet 1,000 mcg PO DAILY RF: 0 levothyroxine 88 mcg tablet 88 mcg PO DAILYBB RF: 0 fluticasone propionate [Flonase] 50 mcg/actuation [place],Suspension 2 spray INTRANASAL DAILY PRN (Reason: Congestion) RF: 0 Multivitamin 50 Plus Tablet 1 tab PO DAILY RF: 0 Discharge Orders: Discharge Order (Routine); Ordered 07/25/21 Ordered By: Tate Rivera Admission Data Admit Date/Time: 07/24/21 21:13 Attending Provider: Tate Rivera Admit Provider: Eder Holder Primary Care Provider: Kaylee Watts Other Providers: Eder Holder
== END 2021-07-25 15:45 | disposition home or self-care (01) ==
LOC: ED 16:54 → 2N 16:54

== ENCOUNTER 2021-09-02 09:06 | Inpatient (IN) ==
--- NOTE | 2021-09-02 09:32 | Emergency Department Note ---
Impression & Plan Weakness, Pulmonary emboli, Acute hyponatremia ED Provider Note NAME: DANE ZEE AGE: 86 SEX: F : 1935 ARRIVES VIA: Walk-In INFORMANT: [Patient] ED PROVIDER(S): [Gilberto Jasmine MD] CHIEF COMPLAINT: Abnormal testing HISTORY OF PRESENT ILLNESS: The patient is an 86-year-old female who has not felt well for weeks to months. She has been weak. She has been dealing with a low sodium. She has been bloated for 6 weeks with some loose stools. No black or bloody stools. She has had some mild shortness of breath at times. Her legs have been achy. She has h ad some nausea and no appetite. The patient states that she came yesterday to the ER for an evaluation. She was told that her sodium was low but stable for her. She was given some IV saline. She had a CT of her abdomen and pelvis that was negative for any acute surgical pathology or findings of infection. On over read, a PE was noted in the right lower lung. The patient was called and told to report to the ER. The patient currently denies any chest pain or shortness of breath. She has ne blake had a DVT or PE. She states she still feels weak and washed out, bloated. REVIEW OF SYSTEMS: See HPI for pertinent positives and negatives. A total of ten systems were reviewed and were otherwise negative. PMHx/PSHx: See Below SOCIAL HISTORY: See Below. PHYSICAL EXAM: GENERAL: Patient is in no acute distress. HEENT: No acute trauma, normocephalic atraumatic, mucous membranes moist, no nasal congestion, no scleral icterus. NECK: No stridor, no adenopathy, no meningismus, trachea is midline. LUNGS: Clear to auscultation bilaterally, no wheeze, no rhonchi, breath sounds equal. HEART: Without murmurs gallops or rubs, regular rate and rhythm. ABDOMEN: Soft, nontender, bowel sounds positive, no peritonitis. EXTREMITIES: No cyanosis or edema, full range of motion of all the joints without pain or difficulty, no signs for acute trauma. NEUROLOGIC: Oriented x 3, no acute motor or sensory deficits, no focal weakness. SKIN: No rash, no jaundice, no diaphoresis. DIFFERENTIAL DIAGNOSIS: PE, electrolyte abnormality, dehydration, dysrhythmia, IN, cardiac ischemia, coagulopathy, DVT, among others. EMERGENCY DEPARTMENT COURSE/PROCEDURES: ECG: Indication was pulmonary embolus. The ECG shows a normal sinus rhythm with a rate of 86. There are some inverted T waves in the inferior leads and an inverted T wave in V3. The rate is 86. There is no ST elevation, no PVCs. The QTc is 440. Compared to an ECG from 01 September 2021, the inverted T wave in V3 appears new. Criteria for LVH is longer present. Continuous Cardiac Monitoring: An order was placed for continuous cardiac monit oring. The monitor shows a rate of 86 with normal sinus rhythm. MEDICAL DECISION MAKING: There is no leukocytosis or concerning anemia. There is a normal platelet count. No coagulopathy. D-dimer was elevated consistent with clotting/PE. No renal failure. Sodium was low at 133. COVID test returned negative. ECG showed a normal sinus rhythm, no ST elevation. Cardiac enzyme testing x1 was not consistent with acute cardiac injury. Chest CT does show a right lower lung pulmonary embolus. There were no other pulmonary emboli noted. Bilateral lower extremity ultrasounds did not show evidence for DVT. Patient received IV saline. She has done well here in the ED. I discussed the patient's case with the on-call hospitalist. I was concerned because of all her complaints and now the diagnosis of PE. As further work-up was felt warranted, admission was recommended. The patient is going to require anticoagulation. A did speak with case management, I talked to the patient at length. I spoke with the patient's family as well. Past Med/Surg History Medical History Anxiety GERD (gastroesophageal reflux disease) History of colon polyps History of gastric ulcer Hyperlipidemia Hypothyroidism On anticoagulant therapy plavix daily Transient ischemic attack (TIA) 2014--no deficits--reason for plavix Surgical History History of bilateral tubal ligation History of cataract surgery RIGHT CATARACT on 07/27/18: was given 2mg of IV versed History of colonoscopy History of dilatation and curettage History of esophagogastroduodenoscopy (EGD) History of left breast biopsy benign History of repair of right rotator cuff Family History Mother Family history of diabetes mellitus Daughter Family hx of colon cancer Other No family history of adverse response to anesthesia Social History Smoking Status: Never smoker Second Hand Exposure: No; Hx Alcohol Use: No Hx Substance Use: No Preferred Language: Serbian Communication Ability: Effective Canvas Cutter Required: No Beliefs That Will Affect Care: None marital status: Current Living Situation: Alone Feels Safe at Home: Yes Assistive Devices: None Allergies Allergies Allergy/AdvReac Type Severity Reaction Status Date / Time pneumococcal vaccine Allergy Intermediate local Verified 09/02/21 14:55 reaction alendronate sodium AdvReac Intermediate GI upset Verified 09/02/21 14:55 calcium AdvReac Intermediate bloating, Verified 09/02/21 14:55 constipation citalopram AdvReac Intermediate headache Verified 09/02/21 14:55 ezetimibe AdvReac Intermediate elevated Verified 09/02/21 14:55 LFT's Home Meds Home Medications Medication Instructions Recorded Confirmed ascorbic acid (vitamin C) 500 mg 500 mg PO QDL 07/05/18 09/02/21 tablet (Vitamin C) cholecalciferol (vitamin D3) 25 2,000 unit PO QDL 07/05/18 09/02/21 mcg (1,000 unit) tablet clopidogrel 75 mg tablet (Plavix) 75 mg PO QAM 07/05/18 09/02/21 gemfibrozil 600 mg tablet 600 mg PO BID 07/05/18 09/02/21 polyethylene glycol 3350 17 17 g PO QAM 07/05/18 09/02/21 gram/dose oral powder (Miralax) cyanocobalamin (vitamin B-12) 1,000 mcg PO DAILY 07/24/21 09/02/21 1,000 mcg tablet (Vitamin B-12) fluticasone propionate 50 2 spray intranasal DAILY PRN 07/24/21 09/02/21 mcg/actuation nasal Congestion spray,suspension levothyroxine 88 mcg tablet 88 mcg PO DAILYBB 07/24/21 09/02/21 [id number]-[id number] 1 tab PO DAILY 07/24/21 09/02/21 tablet (Multivitamin 50 Plus) Medical Marijuana 1 tab PO DIRECTED PRN Pain 09/01/21 09/02/21 acetaminophen 500 mg tablet 1,000 mg PO DIRECTED PRN Pain 09/01/21 09/02/21 (Tylenol Extra Strength) diphenhydramine 25 1 tab PO HS 09/01/21 09/02/21 mg-acetaminophen 500 mg tablet (Tylenol PM Extra Strength) Results & Data (ED) Vital Signs Vital Signs - 24 hr 09/02/21 09:11 09/02/21 11:00 09/02/21 13:00 Temperature 36.3 C L Temperature Source Temporal Artery Scan Pulse Rate 86 Pulse Rate [Right Finger] 83 82 Pulse Rhythm Regular Pulse Rhythm [Right Finger] Regular Regular Pulse Strength Normal Pulse Strength [Right Finger] Normal Normal Respiratory Rate 20 18 18 Respiratory Effort / Characteristics Non-Labored Spontaneous Non-Labored Non-Labored Respiratory Depth Normal Normal Normal Respiratory Pattern Regular Regular Regular Blood Pressure 133/96 Blood Pressure [Left Arm] 144/98 H 136/90 Blood Pressure Mean 108 Blood Pressure Mean [Left Arm] 113 105 Blood Pressure Position Sitting Blood Pressure Position [Left Arm] Lying Pulse Oximetry 94 97 94 Oxygen Delivery Method Room Air Room Air Room Air Sepsis Recent Fever Within 48 Hours No Sepsis New/Unexplained Change in Mental Status No Sepsis Action Taken by Nursing No Action Required Home Medications Current Medication List: was personally reviewed by me Laboratory Data Attestation: I reviewed the patient's lab results. Result diagrams: 09/02/21 10:10 09/02/21 10:10 Lab Results 09/02/21 09/02/21 09/02/21 Range/Units 10:10 10:10 10:10 WBC 5.10 (4.8-10.8) K/ul RBC 4.54 (3.93-5.22) M/uL Hgb 14.1 (12.0-16.0) g/dl Hct 40.5 (34.1-44.9) % MCV 89.2 (80.0-100.0) fL MCH 31.1 (25.0-34.0) pg MCHC 34.8 (32.0-36.0) g/dL RDW Std Deviation 43.1 (36.4-46.3) fL RDW Coeff of Jeanie 13.2 (11.5-14.5) % Plt Count 311 (130-400) K/uL MPV 8.9 L (9.4-12.3) fL PT 11.2 (9.0-12.0) Seconds INR 1.1 (0.9-1.1) APTT 26.8 (21.0-31.0) Seconds PTT Ratio 1.0 D-Dimer 1500 H* (0-500) ug/L FEU Sodium 133 L (136-145) mmol/L Potassium 3.8 (3.5-5.1) mmol/L Chloride 101 (98-107) mmol/L Carbon Dioxide 25 (21-32) mmol/L Anion Gap 7 (3-11) BUN 8 (6-23) mg/dl Creatinine 0.49 L (0.6-1.2) mg/dl Est Cr Clr Drug Dosing 69.3 ml/min Est GFR ( Amer) 103.0 ml/min Est GFR (Non-Af Amer) 88.8 ml/min BUN/Creatinine Ratio 16.3 (10-20) Glucose 101 H (70-99(Fasting)) mg/dl Calcium 9.4 (8.5-10.1) mg/dl Magnesium 1.8 (1.7-2.4) mg/dl Troponin I High Sens 5.9 (0-14) pg/ml SARS-CoV-2, RNA, NAAT (NEGATIVE) 09/02/21 Range/Units 10:15 WBC (4.8-10.8) K/ul RBC (3.93-5.22) M/uL Hgb (12.0-16.0) g/dl Hct (34.1-44.9) % MCV (80.0-100.0) fL MCH (25.0-34.0) pg MCHC (32.0-36.0) g/dL RDW Std Deviation (36.4-46.3) fL RDW Coeff of Jeanie (11.5-14.5) % Plt Count (130-400) K/uL MPV (9.4-12.3) fL PT (9.0-12.0) Seconds INR (0.9-1.1) APTT (21.0-31.0) Seconds PTT Ratio D-Dimer (0-500) ug/L FEU Sodium (136-145) mmol/L Potassium (3.5-5.1) mmol/L Chloride (98-107) mmol/L Carbon Dioxide (21-32) mmol/L Anion Gap (3-11) BUN (6-23) mg/dl Creatinine (0.6-1.2) mg/dl Est Cr Clr Drug Dosing ml/min Est GFR ( Amer) ml/min Est GFR (Non-Af Amer) ml/min BUN/Creatinine Ratio (10-20) Glucose (70-99(Fasting)) mg/dl Calcium (8.5-10.1) mg/dl Magnesium (1.7-2.4) mg/dl Troponin I High Sens (0-14) pg/ml SARS-CoV-2, RNA, NAAT NEGATIVE (NEGATIVE) Administered Medications Discontinued Medications Sodium Chloride (Nss 1000ml) 500 mls @ 999 mls/hr IV .Q31M ONE Stop: 09/02/21 12:49 Last Infusion: 09/02/21 14:01 Dose: 0 mls/hr Documented By: Admin: 09/02/21 13:17 Dose: 999 mls/hr Documented By: AP Ioversol (Optiray 320 125ml) 120 ml IV ONCE ONE Stop: 09/02/21 12:47 Last Admin: 09/02/21 12:47 Dose: 120 ml Documented By: Imaging Data Radiologist's Impression: Chest CTA 09/02/21 09:30 CT angio chest PE protocol CLINICAL HISTORY: Chest pain. COMPARISON STUDY: Portable chest from 09/01/[address] of the abdomen and pelvis from 09/01/2021 CT DOSE: 345.34 mGy.cm TECHNIQUE: CT Angio of the chest was performed.followed by image post processing with coronal, and sagittal MIP reformats. Contrast Volume: Optiray 320, 120 ml FINDINGS: Vasculature: As seen at the right lung base on the previous CT of the abdomen and pelvis, there are perfusion defects present within the right lower lobe pulmonary arteries. The findings represent the presence of acute pulmonary emboli. Homogeneous perfusion seen throughout the remaining imaged vessels bilaterally. Airway: The airway is clear. No endobronchial lesion is identified. Lungs: There is evidence for mild underlying chronic obstructive pulmonary disease. The lungs are otherwise clear of acute alveolar opacities, air bronchograms or pulmonary nodules. Pleura: There is no evidence for pleural effusion. There is no evidence for pneumothorax. Mediastinum: There is no evidence for pathologic adenopathy. The heart size is within normal limits. There is no evidence for right heart strain. The thoracic aorta is within normal limits. Mild atherosclerotic calcification is present. There is no evidence for pericardial effusion. Upper abdomen:The adrenal glands are normal bilaterally. Osseous structures: There is no acute osseous pathology. Impression: 1. CTA chest confirms small pulmonary emboli involving the right lower lobe pulmonary arteries. 2. No evidence for right heart strain. 3. Mild COPD with otherwise no acute chest disease. ACT 112: Negative or not required by law. Electronically signed by: Timothy Palmer M.D. 09/02/2021 1:16 PM Venous Doppler Study 09/02/21 09:44 BILATERAL LOWER EXTREMITY VENOUS DOPPLER HISTORY: Acute pain and swelling of the lower legs pe COMPARISON STUDY: None. FINDINGS: There is normal compressibility, flow, and augmentation within the bilateral lower extremity deep venous systems. IMPRESSION: No DVT within the right or left lower extremity. ACT 112: Negative or not required by law. Electronically signed by: Jonathon Kwong M.D. 09/02/2021 11:58 AM ABDOMEN AND PELVIS CT WITH IV CONTRAST CT DOSE: 534.66 mGy.cm HISTORY: Acute vomiting with upper abdominal pain and vomiting bloating, upper abd pain TECHNIQUE: Multiaxial CT images of the abdomen and pelvis were performed following the IV administration of 93 cc of Optiray, A dose lowering technique was utilized adhering to the principles of ALARA. COMPARISON STUDY: CTA chest 07/24/2021 FINDINGS: Pectus excavatum with mild cardiomegaly. Segmental and subsegmental pu lmonary emboli are present within the right lower lobe (for example please see image 15 of series 3). The spleen, pancreas, gallbladder, adrenal glands and liver appear unremarkable. There is patency of the hepatic and portal veins. 9 mm cyst of the superior pole right kidney. There is symmetric enhancement of the kidneys without hydronephrosis. Mild urinary bladder wall thickening with partial distention. Uterus and adnexa are unremarkable. Atherosclerosis of the aorta. There is no lymphadenopathy. No bowel obstruction or bowel wall thickening. No ascites or mesenteric inflammation. Noninflamed appendix. Tiny fat filled periumbilical hernia with diastases of 1.3 cm. Degenerative changes of the spine, pelvis and hips. 25% superior endplate compression deformity of the L5 vertebral body is noted without retropulsion or definite paravertebral edema. Severe T9 burst fracture with 4 mm retropulsion is unchanged. Demineralized appearance of the bones. IMPRESSION: 1. Segmental and subsegmental pulmonary emboli of the right lower lobe. 2. No bowel obstruction or bowel wall thickening. 3. Likely chronic compression deformities of T9 and L5. 4. Additional findings as above. Findings were discussed with Dr. Martinez on 09/02/2021 at 7:50 AM. Discharge Plan Visit Data Chief Complaint: Abnormal Labs/Diagnostic Testing Stated Complaint: ABNORMAL LABS/TESTING ED Provider: Gilberto Jasmine Discharge Problem: Weakness, Pulmonary emboli, Acute hyponatremia Patient Disposition: Admitted As Inpatient Condition: Fair Discharge Instructions Interventions: ED Discharge Assessment Last Done: 09/02/21 16:17
[2021-09-02 10:25] LABS: Hematocrit (blood only) 40.5 % (34.1-44.9); Hemoglobin 14.1 g/dl (12.0-16.0); Mean Corpuscular Hemoglobin 31.1 pg (25.0-34.0); Mean Corpuscular Hgb Conc 34.8 g/dL (32.0-36.0); Mean Corpuscular Volume 89.2 fL (80.0-100.0); Mean Platelet Volume 8.9 fL (9.4-12.3); Platelet Count 311 K/uL (130-400); RDW Coefficient of Variation 13.2 % (11.5-14.5); RDW Standard Deviation 43.1 fL (36.4-46.3); Red Blood Count 4.54 M/uL (3.93-5.22)
[2021-09-02 10:52] LABS: BUN Creatinine Ratio 16.3 (10-20); Calcium 9.4 mg/dl (8.5-10.1); Creatinine Clr Calc Pharmacy 69.3 ml/min; Est GFR (Non-African American) 88.8 ml/min; Magnesium 1.8 mg/dl (1.7-2.4); Potassium 3.8 mmol/L (3.5-5.1)
[2021-09-02 10:57] LABS: INR 1.1 (0.9-1.1); Partial Thromboplastin Time 26.8 Seconds (21.0-31.0); Prothrombin Time 11.2 Seconds (9.0-12.0)
[2021-09-02 10:58] LABS: Troponin I High Sensitivity 5.9 pg/ml (0-14)
[2021-09-02 11:10] LABS: D Dimer 1500 ug/L FEU (0-500)
--- NOTE | 2021-09-02 11:59 | Ultrasound Report ---
BILATERAL LOWER EXTREMITY VENOUS DOPPLER HISTORY: Acute pain and swelling of the lower legs pe COMPARISON STUDY: None. FINDINGS: There is normal compressibility, flow, and augmentation within the bilateral lower extremit y deep venous systems. IMPRESSION: No DVT within the right or left lower extremity. ACT 112: Negative or not required by law. Electronically signed by: Jonathon Kwong M.D. 09/02/2021 11:58 AM
[2021-09-02] MEDS ORDERED: SODIUM CHLORIDE 0.9% 1000ML 500 ML IV ONE (12:19)
[2021-09-02] MEDS ORDERED: OPTIRAY 320 125ml IV ONE (12:46)
--- NOTE | 2021-09-02 13:17 | CT Scan Report ---
CT angio chest PE protocol CLINICAL HISTORY: Chest pain. COMPARISON STUDY: Portable chest from 09/01/[address] of the abdomen and pelvis from 09/01/2021 CT D OSE: 345.34 mGy.cm TECHNIQUE: CT Angio of the chest was performed.followed by image post processing with coronal, and s agittal MIP reformats. Contrast Volume: Optiray 320, 120 ml FINDINGS: Vasculature: As seen at the right lung base on the previous CT of the abdomen and pelvis, there are p erfusion defects present within the right lower lobe pulmonary arteries. The findings represent the p resence of acute pulmonary emboli. Homogeneous perfusion seen throughout the remaining imaged vessels bilaterally. Airway: The airway is clear. No endobronchial lesion is identified. Lungs: There is evidence for mild underlying chronic obstructive pulmonary disease. The lungs are oth erwise clear of acute alveolar opacities, air bronchograms or pulmonary nodules. Pleura: There is no evidence for pleural effusion. There is no evidence for pneumothorax. Mediastinum: There is no evidence for pathologic adenopathy. The heart size is within normal limits. There is no evidence for right heart strain. The thoracic aorta is within normal limits. Mild atheros clerotic calcification is present. There is no evidence for pericardial effusion. Upper abdomen:The adrenal glands are normal bilaterally. Osseous structures: There is no acute osseous pathology. Impression: 1. CTA chest confirms small pulmonary emboli involving the right lower lobe pulmonary arteries. 2. No evidence for right heart strain. 3. Mild COPD with otherwise no acute chest disease. ACT 112: Negative or not required by law. Electronically signed by: Timothy Palmer M.D. 09/02/2021 1:16 PM
--- NOTE | 2021-09-02 14:14 | History & Physical Report ---
Date of Service September 02, 2021 Assessment & Plan (1) Pulmonary embolism: Plan: This is an 86yo F with a PMH of senile osteoporosis, recent thoracic compression fracture, hypothyroidism, dyslipidemia, nonalcoholic liver disease, history of sigmoid diverticulosis, history of TIA, h/o peptic ulcer disease and other medical problems listed below who presents with SOB, abdominal bloating and loose stools. Over the past 6 weeks, patient endorses abdominal bloating, decr eased energy and decreased appetite and was found to have RLL PE. In setting of more sedentary lifestyle over past six weeks CTA chest confirms small pulmonary emboli involving the right lower lobe pulmonary arteries. No evidence for right heart strain Oxygen saturation 96% on room air Anticoagulating with IV heparin for now in case need of procedure Plan to transition to [facility] prior to discharge (2) Abdominal bloating: (3) Early satiety: (4) Weakness: Plan: Patient with history of PUD, colon cancer in family Endorsing 6 weeks of early satiety, bloating and smaller but frequent stools. No jovany blood CT abdomen pelvis from 09/01, which was negative for any acute surgical pathology but questionable presence of gastroenteritis and colitis Afebrile, no leukocytosis Routine GI consult (5) TIA (transient ischemic attack): Plan: Continue plavix, statin intolerant (6) Chronic hyponatremia: Plan: At baseline DVT Ppx: IV heparin Code status: FULL PCP: Mac Dispo: Admitted med/surg Patient seen in collaboration with Dr. Mcghee. Please see addendum. History of Present Illness Chief Complaint: abdominal bloating, SOB Primary Care Provider: Kaylee Watts MD This is an 86yo F with a PMH of senile osteoporosis, recent thoracic compression fracture, hypothyroidism, dyslipidemia, nonalcoholic liver disease, history of sigmoid diverticulosis, history of TIA, h/o peptic ulcer disease and other medical problems listed below who presents with SOB, abdominal bloating and loose stools. Over the past 6 weeks, patient endorses abdominal bloating, decreased energy and decreased appetite. Was struggling with back pain in set ting of thoracic compression fractures that have since improved. Per family at bedside, patient notably still has decreased appetite with early satiety. Having 3-4 bowel movements a day that are described as loose. Denies any jovany blood in stool. Did present to the ED yesterday and underwent CT abdomen pelvis, which was negative for any acute surgical pathology but questionable presence of gastroenteritis and colitis. Does have history of peptic ulcer disease on EGD from 2018 with nonbleeding ulcers. Patient with family history of lymphoma and daughter with colon cancer. Denies any jovany weight loss or night sweats. No fever, chills, chest pain, N/V, abdominal pain, dysuria or constipation. Allergies Allergy/AdvReac Type Severity Reaction Status Date / Time pneumococcal vaccine Allergy Intermediate local Verified 09/02/21 14:55 reaction alendronate sodium AdvReac Intermediate GI upset Verified 09/02/21 14:55 calcium AdvReac Intermediate bloating, Verified 09/02/21 14:55 constipation citalopram AdvReac Intermediate headache Verified 09/02/21 14:55 ezetimibe AdvReac Intermediate elevated Verified 09/02/21 14:55 LFT's Home Medications Medication Instructions Recorded Confirmed Type ascorbic acid (vitamin C) 500 mg 500 mg PO QDL 07/05/18 09/02/21 History tablet (Vitamin C) cholecalciferol (vitamin D3) 25 2,000 unit PO QDL 07/05/18 09/02/21 History mcg (1,000 unit) tablet clopidogrel 75 mg tablet (Plavix) 75 mg PO QAM 07/05/18 09/02/21 History gemfibrozil 600 mg tablet 600 mg PO BID 07/05/18 09/02/21 History polyethylene glycol 3350 17 17 g PO QAM 07/05/18 09/02/21 History gram/dose oral powder (Miralax) cyanocobalamin (vitamin B-12) 1,000 mcg PO DAILY 07/24/21 09/02/21 History 1,000 mcg tablet (Vitamin B-12) fluticasone propionate 50 2 spray intranasal DAILY PRN 07/24/21 09/02/21 History mcg/actuation nasal Congestion spray,suspension levothyroxine 88 mcg tablet 88 mcg PO DAILYBB 07/24/21 09/02/21 History qjhogbzekmso-ntuggfoi-ekupak 1 tab PO DAILY 07/24/21 09/02/21 History tablet (Multivitamin 50 Plus) Medical Marijuana 1 tab PO DIRECTED PRN Pain 09/01/21 09/02/21 History acetaminophen 500 mg tablet 1,000 mg PO DIRECTED PRN Pain 09/01/21 09/02/21 History (Tylenol Extra Strength) diphenhydramine 25 1 tab PO HS 09/01/21 09/02/21 History mg-acetaminophen 500 mg tablet (Tylenol PM Extra Strength) Past Med/Surg History Medical History Anxiety GERD (gastroesophageal reflux disease) History of colon polyps History of gastric ulcer Hyperlipidemia Hypothyroidism On anticoagulant therapy plavix daily Transient ischemic attack (TIA) 2014--no deficits--reason for plavix Surgical History History of bilateral tubal ligation History of cataract surgery RIGHT CATARACT on 07/27/18: was given 2mg of IV versed History of colonoscopy History of dilatation and curettage History of esophagogastroduodenoscopy (EGD) History of left breast biopsy benign History of repair of right rotator cuff Family History Mother Family history of diabetes mellitus Daughter Family hx of colon cancer Other No family history of adverse response to anesthesia Social History Smoking Status: Never smoker Second Hand Exposure: No; Hx Alcohol Use: No Hx Substance Use: No Preferred Language: Amharic Communication Ability: Effective World Travel Counselor Required: No Beliefs That Will Affect Care: None marital status: Current Living Situation: Alone Other Information That Helps Us Care for You: No Feels Safe at Home: Yes Safety Concerns: Feels Safe At This Time Assistive Devices: Glasses Review of Systems Review of Systems: At least ten systems reviewed and negative except as noted in the HPI. Physical Exam Physical Exam: General Appearance: WD/WN, vitals as above, NAD, sitting up in bed, pleasant, anxious Head: normocephalic, atraumatic Eyes: normal inspection, PERRL, conjunctivae normal, anicteric sclerae ENT: external ear and nose normal, oropharynx normal Neck: normal visual inspection, trachea midline, no thyromegaly Respiratory: normal respiratory effort, lungs clear to auscultation, no wheeze, rales, rhonchi. No accessory muscle use Cardiovascular: regular rate, rhythm, no murmur, normal peripheral pulses, no BLE edema. Vessels: no JVD Chest: normal inspection of chest Abdomen/GI: normal bowel sounds, distended but nontender, no hepatosplenomegaly Extremities/Musculoskeletal: no cyanosis or clubbing, extremities motor strength 5/5 Neurologic: PERRL, EOMI, accommodation nl, no face palsy, no dysarthria, CN's II-XI intact bilaterally and moves all extremities Psychiatric: A+Ox3, euthymic affect Skin: no rashes, normal color, warm/dry Results & Data Results & Data ([facility]) Vital Signs (Past 12 Hours) Vital Signs Temp Pulse Pulse Resp BP BP Pulse Ox 09/02/21 13:00 82 18 136/90 94 09/02/21 11:00 83 18 144/98 H 97 09/02/21 09:11 36.3 C L 86 20 133/96 94 O2 Del Method 09/02/21 13:00 Room Air 09/02/21 11:00 Room Air 09/02/21 09:11 Room Air Laboratory Results Short CBC 09/02/21 Range/Units 10:10 WBC 5.10 (4.8-10.8) K/ul Hgb 14.1 (12.0-16.0) g/dl Hct 40.5 (34.1-44.9) % Plt Count 311 (130-400) K/uL BMP 09/02/21 10:10 Sodium 133 L Potassium 3.8 Chloride 101 Carbon Dioxide 25 BUN 8 Creatinine 0.49 L Glucose 101 H Calcium 9.4 Diagnostic Findings Chest CTA 09/02/21 09:30 CT angio chest PE protocol CLINICAL HISTORY: Chest pain. COMPARISON STUDY: Portable chest from 09/01/[address] of the abdomen and pelvis from 09/01/2021 CT DOSE: 345.34 mGy.cm TECHNIQUE: CT Angio of the chest was performed.followed by image post processing with coronal, and sagittal MIP reformats. Contrast Volume: Optiray 320, 120 ml FINDINGS: Vasculature: As seen at the right lung base on the previous CT of the abdomen and pelvis, there are perfusion defects present within the right lower lobe pulmonary arteries. The findings represent the presence of acute pulmonary emboli. Homogeneous perfusion seen throughout the remaining imaged vessels bilaterally. Airway: The airway is clear. No endobronchial lesion is identified. Lungs: There is evidence for mild underlying chronic obstructive pulmonary disease. The lungs are otherwise clear of acute alveolar opacities, air bronchograms or pulmonary nodules. Pleura: There is no evidence for pleural effusion. There is no evidence for pneumothorax. Mediastinum: There is no evidence for pathologic adenopathy. The heart size is within normal limits. There is no evidence for right heart strain. The thoracic aorta is within normal limits. Mild atherosclerotic calcification is present. There is no evidence for pericardial effusion. Upper abdomen:The adrenal glands are normal bilaterally. Osseous structures: There is no acute osseous pathology. Impression: 1. CTA chest confirms small pulmonary emboli involving the right lower lobe pulmonary arteries. 2. No evidence for right heart strain. 3. Mild COPD with otherwise no acute chest disease. ACT 112: Negative or not required by law. Electronically signed by: Timothy Palmer M.D. 09/02/2021 1:16 PM Venous Doppler Study 09/02/21 09:44 BILATERAL LOWER EXTREMITY VENOUS DOPPLER HISTORY: Acute pain and swelling of the lower legs pe COMPARISON STUDY: None. FINDINGS: There is normal compressibility, flow, and augmentation within the bilateral lower extremity deep venous systems. IMPRESSION: No DVT within the right or left lower extremity. ACT 112: Negative or not required by law. Electronically signed by: Jonathon Kwong M.D. 09/02/2021 11:58 AM Code Status & VTE Plan VTE Prophylaxis Plan VTE Prophylaxis will be ordered: Yes Supervising Physician Co-Signing Physician Notes Attending addendum: The patient was seen and examined in emergency room She has been very anxious and complains to have abdominal bloating with or without food and some bilateral breast heaviness associated with it Also complains to have shortness of breath since this morning She was in the ER yesterday and apparent CT scan of the abdomen and pelvis was unremarkable and she was sent home Noted to have pulmonary embolism on CTA and she will be admitted to medical telemetry unit for continuation of care On examination Lying in bed very anxious without any apparent distress Hemodynamically stable with blood pressure on the upper side at 139/106 Chestclear to auscultate bilaterally HeartS1-S2, regular Abdomenmildly distended, soft, nontender and bowel sound present Extremitiesno edema CNSalert, awake and oriented x3 Her admission labs, imaging studies and EKG reviewed Has small pulmonary emboli involving the right lower lobe pulmonary arteries without any strain Abdominal bloating to rule out gallstones GI has been consulted Has been started with intravenous heparin with them subsequent transformation into Eliquis and or Coumadin Agree with assessment and plan as outlined above by DARCY Flores DR
--- NOTE | 2021-09-02 14:40 | Electrocardiogram Report ---
Test Reason : Blood Pressure : / mmHG Vent. Rate : 086 BPM Atrial Rate : 086 BPM P-R Int : 206 ms QRS Dur : 078 ms QT Int : 368 ms P-R-T Axes : 049 003 -14 degrees QTc Int : 440 ms Normal sinus rhythm Left atrial enlargement Nonspecific T wave abnormality Inferior leads Abnormal ECG When compared with ECG of 01-SEP-2021 21:57, No significant change was found Confirmed by Derik Klein ([id number]) on 09/02/2021 2:40:15 PM Referred By: REFERRED SELF Confirmed By:Derik Klein
[2021-09-02] MEDS ORDERED: ONDANSETRON INJ 2 MG/ML 2 ML VIAL IV PRN (16:16)
[2021-09-02] MEDS ORDERED: POLYETHYLENE (MIRALAX) 17 GM PACK PO PRN (16:16)
[2021-09-02] MEDS ORDERED: Heparin IV Adult Wt-Based Standard *NO* Bolus Protocol IV SCH (16:43)
[2021-09-02] MEDS ORDERED: FLUTICASONE PROPIONATE NA SPR 16 GM BTL NAE PRN (16:49)
[2021-09-02] MEDS ORDERED: HEPARIN 25000 UNIT/500 ML D5W IV ONE (17:29)
[2021-09-02] MEDS: ACETAMINOPHEN 325 MG TAB PO PRN ×2 (17:44→23:13)
[2021-09-02] MEDS: PANTOprazole 40 MG TAB PO SCH (17:44)
[2021-09-02] MEDS: HEPARIN SODIUM/DEXTROSE 25,000 UNITS/500 ML BAG IV SCH (17:44)
[2021-09-03 00:25] LABS: Partial Thromboplastin Time 54.7 Seconds (21.0-31.0)
[2021-09-03] MEDS: ACETAMINOPHEN 325 MG TAB PO PRN ×2 (03:43→15:30)
[2021-09-03] MEDS: LEVOTHYROXINE SODIUM 88 MCG TABLET PO SCH (06:20)
[2021-09-03 07:00] LABS: Hematocrit (blood only) 40.7 % (34.1-44.9); Hemoglobin 14.2 g/dl (12.0-16.0); Mean Corpuscular Hemoglobin 31.3 pg (25.0-34.0); Mean Corpuscular Hgb Conc 34.9 g/dL (32.0-36.0); Mean Corpuscular Volume 89.8 fL (80.0-100.0); Platelet Count 295 K/uL (130-400); RDW Coefficient of Variation 13.1 % (11.5-14.5); RDW Standard Deviation 43.1 fL (36.4-46.3); Red Blood Count 4.53 M/uL (3.93-5.22); White Blood Count 5.32 K/ul (4.8-10.8)
[2021-09-03 07:27] LABS: Calcium 9.3 mg/dl (8.5-10.1); Creatinine Clr Calc Pharmacy 58.5 ml/min; Est GFR (African American) 97.4 ml/min; Potassium 3.8 mmol/L (3.5-5.1)
[2021-09-03 07:30] LABS: Partial Thromboplastin Ratio 2.9
[2021-09-03 07:52] LABS: Partial Thromboplastin Time 78.8 Seconds (21.0-31.0)
--- NOTE | 2021-09-03 08:36 | Ultrasound Report ---
ABDOMINAL ULTRASOUND, RIGHT UPPER QUADRANT HISTORY: Abdominal bloating. Assess for gallstones.. COMPARISON: Abdomen and pelvis CT 09/01/2021. FINDINGS: Pancreas: Obscured by overlying bowel gas. Liver: Unremarkable. Gallbladder: No gallbladder wall thickening. No gallstones. CBD: 5 mm. Right kidney: No hydronephrosis. IMPRESSION: 1. Normal gallbladder. No gallstones. 2. The pancreas was obscured by overlying bowel gas. ACT 112: Negative or not required by law. Electronically signed by: Chester Jin M.D. 09/03/2021 8:34 AM
[2021-09-03] MEDS: gemfibroziL 600 MG TAB PO SCH ×2 (08:39→15:30)
[2021-09-03] MEDS: CLOPIDOGREL BISULFATE 75 MG TAB PO SCH ×2 (08:39→09:30)
[2021-09-03] MEDS: PANTOprazole 40 MG TAB PO SCH (08:39)
[2021-09-03] MEDS: CEROVITE ADV FORMULA TAB PO SCH (08:39)
[2021-09-03] MEDS: CYANOCOBALAMIN (B-12) 500 MCG TABLET PO SCH (08:39)
[2021-09-03] MEDS ORDERED: SIMETHICONE 80 MG CHEW PO PRN (09:16)
--- NOTE | 2021-09-03 10:31 | Gastrointestinal Consultation ---
Date of Consultation September 03, 2021 Assessment & Plan (1) Pulmonary emboli: (2) Early satiety: (3) Abdominal bloating: Patient is a 86 years old female currently admitted with PE. Having symptoms of early satiety and bloating. History of nonbleeding gastric ulcers. Bloating usually resolve after taking Gas-X. Her bowels are moving regularly with MiraLAX daily. Abdominal exam is benign today, soft, nontender, bowel sounds present. DDx: gastritis, PUD, ? pancreatic malignancy in light of bloating, PE - Protonix 40mg daily - Miralax 17g daily - Gas X 80mg q6hr prn bloating - Will consider obtaining pancreas CT - Plan for EGD w EUS eval on 09/05/2021 Supervising Physician Co-Signing Physician Notes Attg add: I interviewed and examined pt, reviewed chart and labs. Pt with bloating, decreased stool caliber, change in BH. Given PE, FH CRC - plan EGD/EUS, colonoscopy. History of Present Illness Reason for Consultation: Abdominal bloating, early satiety Requesting Physician: Dr. Joshua Medina Attending Physician: Dr. Kannan Burr History of Present Illness Pt is a 86yo F with PMHx of senile osteoporosis, recent thoracic compression fracture, hypothyroidism, dyslipidemia, nonalcoholic liver disease, h/o sigmoid diverticulosis, h/o TIA, h/o peptic ulcer disease currently admitted w PE. GI consulted to evaluate patient for symptoms of bloating and early satiety. Patient reports that she usually feels well when she first wakes up in the morning, however throughout the day after eating she may get bloated. Denies any abdominal pain, nausea or vomiting. Appetite is good, in fact she is asking for breakfast this morning. Her bowels are also moving regularly on MiraLAX. Denies any rectal bleeding. No signs of weight loss, epic chart reviewed. She uses Gas-X as needed for bloating which helps. Noted on previous EGD in 2018 that she had history of nonbleeding ulcers and VCE in 2018 also evidence of gastric erosions. Last colonoscopy in 2017 with signs of diverticulosis. Abdominal ultrasound this morning showed normal gallbladder, no gallstones, pancreas obscured by overlying bowel gases Allergies Allergy/AdvReac Type Severity Reaction Status Date / Time pneumococcal vaccine Allergy Intermediate local Verified 09/02/21 14:55 reaction alendronate sodium AdvReac Intermediate GI upset Verified 09/02/21 14:55 calcium AdvReac Intermediate bloating, Verified 09/02/21 14:55 constipation citalopram AdvReac Intermediate headache Verified 09/02/21 14:55 ezetimibe AdvReac Intermediate elevated Verified 09/02/21 14:55 LFT's Home Medications Medication Instructions Recorded Confirmed Type ascorbic acid (vitamin C) 500 mg 500 mg PO QDL 07/05/18 09/02/21 History tablet (Vitamin C) cholecalciferol (vitamin D3) 25 2,000 unit PO QDL 07/05/18 09/02/21 History mcg (1,000 unit) tablet clopidogrel 75 mg tablet (Plavix) 75 mg PO QAM 07/05/18 09/02/21 History gemfibrozil 600 mg tablet 600 mg PO BID 07/05/18 09/02/21 History polyethylene glycol 3350 17 17 g PO QAM 07/05/18 09/02/21 History gram/dose oral powder (Miralax) cyanocobalamin (vitamin B-12) 1,000 mcg PO DAILY 07/24/21 09/02/21 History 1,000 mcg tablet (Vitamin B-12) fluticasone propionate 50 2 spray intranasal DAILY PRN 07/24/21 09/02/21 History mcg/actuation nasal Congestion spray,suspension levothyroxine 88 mcg tablet 88 mcg PO DAILYBB 07/24/21 09/02/21 History uqzhbxrzbchr-gijmnnax-lxdetn 1 tab PO DAILY 07/24/21 09/02/21 History tablet (Multivitamin 50 Plus) Medical Marijuana 1 tab PO DIRECTED PRN Pain 09/01/21 09/02/21 History acetaminophen 500 mg tablet 1,000 mg PO DIRECTED PRN Pain 09/01/21 09/02/21 History (Tylenol Extra Strength) diphenhydramine 25 1 tab PO HS 09/01/21 09/02/21 History mg-acetaminophen 500 mg tablet (Tylenol PM Extra Strength) Patient History Medical History Anxiety GERD (gastroesophageal reflux disease) History of colon polyps History of gastric ulcer Hyperlipidemia Hypothyroidism On anticoagulant therapy plavix daily Transient ischemic attack (TIA) 2014--no deficits--reason for plavix Surgical History History of bilateral tubal ligation History of cataract surgery RIGHT CATARACT on 07/27/18: was given 2mg of IV versed History of colonoscopy History of dilatation and curettage History of esophagogastroduodenoscopy (EGD) History of left breast biopsy benign History of repair of right rotator cuff Family History Mother Family history of diabetes mellitus Daughter Family hx of colon cancer Other No family history of adverse response to anesthesia Social History Smoking Status: Never smoker Second Hand Exposure: No; Hx Alcohol Use: No Hx Substance Use: No Preferred Language: Slovenian Communication Ability: Effective Certified Physical Therapist Assistant Required: No Beliefs That Will Affect Care: None marital status: Current Living Situation: Alone Other Information That Helps Us Care for You: No Feels Safe at Home: Yes Safety Concerns: Feels Safe At This Time Assistive Devices: Cane and Walker Review of Systems Review of Systems: All systems reviewed & are unremarkable except as noted in HPI & below Physical Exam Constitutional: WD/WN, vitals as above well groomed, cooperative and comfortable Eyes: PERRL, conjunctivae normal, anicteric sclerae ENMT: external ear and nose normal, oropharynx normal Respiratory: normal respiratory effort, lungs clear to auscultation Cardiovascular: RRR, no murmur, no edema Gastrointestinal (Abdomen): normal bowel sounds, soft, nontender, no hepatosplenomegaly Skin: no rashes, warm and dry no jaundice Psychiatric: A+Ox3, euthymic affect Lymphatic: no lymphedema Results & Data ([facility]) Vital Signs (Past 12 Hours) Vital Signs Temp Pulse Resp BP Pulse Ox O2 Del Method 09/03/21 07:26 36.9 C 62 16 144/88 H 93 Room Air 09/03/21 03:31 36.5 C 88 20 152/86 H 97 Room Air 09/02/21 22:24 Room Air 09/02/21 22:24 36.8 C 84 18 159/97 H 96 Room Air (1) Pulmonary emboli Acute cor pulmonale presence: without acute cor pulmonale Chronicity: acute Pulmonary embolism type: unspecified Qualified Code(s): I26.99 - Other pulmonary embolism without acute cor pulmonale
[2021-09-03] MEDS: CHOLECALCIFEROL 1,000 UNITS 25 MCG TAB PO SCH (12:10)
[2021-09-03 14:39] LABS: Partial Thromboplastin Ratio 2.3
[2021-09-03 14:50] LABS: Partial Thromboplastin Time 64.1 Seconds (21.0-31.0)
[2021-09-03] MEDS ORDERED: bisacodyL 5 MG TABEC PO ONE (16:12)
[2021-09-03] MEDS ORDERED: POLYETHYLENE (MIRALAX) 17 GM PACK PO ONE ×2 (17:00→21:00)
[2021-09-03] MEDS: HEPARIN SODIUM/DEXTROSE 25,000 UNITS/500 ML BAG IV SCH (17:57)
--- NOTE | 2021-09-03 18:56 | Hospitalist Progress Note ---
Date of Service September 03, 2021 Assessment & Plan (1) Pulmonary emboli: (2) Early satiety: Plan 86yo F with a PMH of senile osteoporosis, recent thoracic compression fracture, hypothyroidism, dyslipidemia, nonalcoholic liver disease, history of sigmoid diverticulosis, history of TIA, h/o peptic ulcer disease and other medical problems listed below presented 09/02 with SOB, abdominal bloating and loose stools. Over the past 6 weeks, patient endorses abdominal bloating, decreased energy and decreased appetite and was found to have RLL PE in ED. She is being managed for the following: (1) Pulmonary embolism: In setting of more sedentary lifestyle over past six weeks. CTA chest confirms small pulmonary emboli involving the right lower lobe pulmonary arteries. No evidence for right heart strain Oxygen saturation 96% on room air Anticoagulating with IV heparin for now in case need of procedure Plan to transition to Eliquis prior to discharge (2) Abdominal bloating: (3) Early satiety: (4) Weakness: Patient with history of PUD, colon cancer in family Endorsing 6 weeks of early satiety, bloating and smaller but frequent stools. No jovany blood CT abdomen pelvis from 09/01, which was negative for any acute surgical pathology but questionable presence of gastroenteritis and colitis Afebrile, no leukocytosis GI on board, NPO midnight, plan for EGD/EUS and Colonoscopy. (5) TIA (transient ischemic attack): Plan: Continue plavix, statin intolerant (6) Chronic hyponatremia: Plan: At baseline DVT Ppx: IV heparin Code status: FULL PCP: Mac Dispo: Admitted med/surg Admission and Anticipated Discharge Date Admission Date: September 02, 2021 Subjective Patient seen and examined at bedside as a follow-up for pulmonary embolism, ea rly satiety and abdominal bloating Patient was sitting up in bed, on room air, trying to eat her lunch, NAD, no new acute events overnight, reports feeling better today, reports improvement in her chronic back pain, denies headache/dizziness/chest pain/palpitation/belly pain/other review of symptoms. Patient reports moving bowels okay. Physical Exam Physical Exam: GENERAL: Alert and oriented x3. NAD, on RA. HEENT: No pallor, no icterus. Pupils equal, round and reactive to light. Oral mucosa moist. NECK: No JVD, no neck masses. HEART: S1 and S2 heard. Regular rate and rhythm. No murmur, no gallop. RESPIRATORY SYSTEM: Normal AP diameter. No accessory muscle use. No wheezing, no crackles. ABDOMEN: Soft, bowel sounds present, nontender, no distention. CENTRAL NERVOUS SYSTEM: No facial droop. Speech is clear. Obeys simple commands. Moves extremities. EXTREMITIES: No edema, no erythema seen. Results & Data Results & Data ([facility]) Vital Signs (Past 12 Hours) Vital Signs Temp Pulse Resp BP Pulse Ox O2 Del Method 09/03/21 15:33 36.5 C 86 16 96/67 L 95 Room Air 09/03/21 07:26 36.9 C 62 16 144/88 H 93 Room Air (1) Pulmonary emboli Acute cor pulmonale presence: without acute cor pulmonale Chronicity: acute Pulmonary embolism type: unspecified Qualified Code(s): I26.99 - Other pulmonary embolism without acute cor pulmonale
[2021-09-04 06:26] LABS: Hemoglobin 13.8 g/dl (12.0-16.0); Mean Corpuscular Hemoglobin 31.3 pg (25.0-34.0); Mean Corpuscular Hgb Conc 35.4 g/dL (32.0-36.0); Mean Corpuscular Volume 88.4 fL (80.0-100.0); Mean Platelet Volume 8.9 fL (9.4-12.3); Platelet Count 286 K/uL (130-400); RDW Coefficient of Variation 12.7 % (11.5-14.5); RDW Standard Deviation 41.6 fL (36.4-46.3); Red Blood Count 4.41 M/uL (3.93-5.22); White Blood Count 6.16 K/ul (4.8-10.8)
[2021-09-04] MEDS: LEVOTHYROXINE SODIUM 88 MCG TABLET PO SCH (06:44)
[2021-09-04] MEDS: CEROVITE ADV FORMULA TAB PO SCH (07:20)
[2021-09-04] MEDS: PANTOprazole 40 MG TAB PO SCH (07:21)
[2021-09-04] MEDS: CYANOCOBALAMIN (B-12) 500 MCG TABLET PO SCH (07:21)
[2021-09-04] MEDS: CHOLECALCIFEROL 1,000 UNITS 25 MCG TAB PO SCH (07:21)
[2021-09-04] MEDS: gemfibroziL 600 MG TAB PO SCH ×2 (07:21→17:20)
[2021-09-04 07:23] LABS: Anion Gap 10 (3-11); BUN Creatinine Ratio 18.8 (10-20); Blood Urea Nitrogen 9 mg/dl (6-23); Calcium 9.1 mg/dl (8.5-10.1); Carbon Dioxide 22 mmol/L (21-32); Chloride 97 mmol/L (98-107); Creatinine Clr Calc Pharmacy 70.7 ml/min; Est GFR (African American) 103.7 ml/min; Est GFR (Non-African American) 89.4 ml/min; Glucose 110 mg/dl (70-99(Fasting)); Magnesium 1.8 mg/dl (1.7-2.4); Phosphorus 3.5 mg/dl (2.5-4.9); Sodium 129 mmol/L (136-145)
[2021-09-04] MEDS: CLOPIDOGREL BISULFATE 75 MG TAB PO SCH (07:26)
--- NOTE | 2021-09-04 09:04 | Anesthesiology Consultation ---
Date of Service September 04, 2021 Assessment & Plan (1) Encounter for pre-operative examination: Chart Review Chart Review: Acceptable Risk for Surgery and Patient NOT seen in Pre Admission Testing Consults Requested none Additional Notes recent small PE noted, on heparin therapy, last dose 06:30 History Surgery Operation Date: 09/04/21 17:30 Proposed Procedures p Colonoscopy Dr Burr - Kannan Burr MD Operation Date: 09/05/21 10:55 Proposed Procedures p Endoscopic Ultrasonography Upper - Gokul Chavez MD s Esophagogastroduodenoscopy - Gokul Chavez MD Height/Weight Height: 4 ft 10 in Weight: 69.4 kg Allergies Allergy/AdvReac Type Severity Reaction Status Date / Time pneumococcal vaccine Allergy Intermediate local Verified 09/02/21 14:55 reaction alendronate sodium AdvReac Intermediate GI upset Verified 09/02/21 14:55 calcium AdvReac Intermediate bloating, Verified 09/02/21 14:55 constipation citalopram AdvReac Intermediate headache Verified 09/02/21 14:55 ezetimibe AdvReac Intermediate elevated Verified 09/02/21 14:55 LFT's Medications Home Medications Medication Instructions Recorded Confirmed Last Taken ascorbic acid (vitamin C) 500 mg 500 mg PO QDL 07/05/18 09/02/21 09/01/21 tablet (Vitamin C) cholecalciferol (vitamin D3) 25 2,000 unit PO QDL 07/05/18 09/02/21 09/01/21 mcg (1,000 unit) tablet clopidogrel 75 mg tablet (Plavix) 75 mg PO QAM 07/05/18 09/02/21 09/01/21 gemfibrozil 600 mg tablet 600 mg PO BID 07/05/18 09/02/21 09/01/21 polyethylene glycol 3350 17 17 g PO QAM 07/05/18 09/02/21 09/01/21 gram/dose oral powder (Miralax) cyanocobalamin (vitamin B-12) 1,000 mcg PO DAILY 07/24/21 09/02/21 09/01/21 1,000 mcg tablet (Vitamin B-12) fluticasone propionate 50 2 spray intranasal DAILY PRN 07/24/21 09/02/21 Unknown mcg/actuation nasal Congestion spray,suspension levothyroxine 88 mcg tablet 88 mcg PO DAILYBB 07/24/21 09/02/21 09/02/21 sxhtudgyyycb-tbzzxywb-loywzu 1 tab PO DAILY 07/24/21 09/02/21 09/01/21 tablet (Multivitamin 50 Plus) Medical Marijuana 1 tab PO DIRECTED PRN Pain 09/01/21 09/02/21 Unknown acetaminophen 500 mg tablet 1,000 mg PO DIRECTED PRN Pain 09/01/21 09/02/21 Unknown (Tylenol Extra Strength) diphenhydramine 25 1 tab PO HS 09/01/21 09/02/21 09/01/21 mg-acetaminophen 500 mg tablet (Tylenol PM Extra Strength) apixaban 5 mg tablet (Eliquis) 5 mg PO BID #74 tabs 09/03/21 Unknown Active Medications Generic Name Dose Route Start Last Admin Trade Name Freq PRN Reason Stop Dose Admin Acetaminophen 650 mg 09/02/21 16:16 09/03/21 15:30 Acetaminophen 325 Mg Tab PO 10/02/21 16:15 650 mg Q4H PRN Administration pain/fever Clopidogrel Bisulfate 75 mg 09/03/21 09:00 09/04/21 07:26 Clopidogrel Bisulfate 75 Mg Tab PO 10/03/21 08:59 Not Given QAM ANTOINE Cyanocobalamin 1,000 mcg 09/03/21 09:00 09/04/21 07:21 Cyanocobalamin (B-12) 500 Mcg Tablet PO 10/03/21 08:59 1,000 mcg DAILY ANTOINE Administration Gemfibrozil 600 mg 09/03/21 07:30 09/04/21 07:21 Gemfibrozil 600 Mg Tab PO 10/03/21 07:29 600 mg BID@0730,1630 ANTOINE Administration Heparin Sodium/Dextrose 25,000 units in 500 mls @ 0 mls/hr 09/02/21 17:00 09/04/21 06:28 Heparin Sodium/Dextrose IV 10/02/21 16:59 0 units/hr .Q0M ANTOINE 0 mls/hr Titration Protocol 0 UNITS/HR Levothyroxine Sodium 88 mcg 09/03/21 06:30 09/04/21 06:44 Levothyroxine Sodium 88 Mcg Tablet PO 10/03/21 06:29 88 mcg DAILYBB ANTOINE Administration Multivitamins/Minerals 1 tab 09/03/21 09:00 09/04/21 07:20 Cerovite Adv Formula Tab PO 10/03/21 08:59 1 tab DAILY ANTOINE Administration Ondansetron HCl 4 mg 09/02/21 16:16 09/03/21 21:47 Ondansetron Inj 2 Mg/Ml 2 Ml Vial IV 10/02/21 16:15 4 mg Q6H PRN Administration Nausea Pantoprazole Sodium 40 mg 09/02/21 17:30 09/04/21 07:21 Pantoprazole 40 Mg Tab PO 10/02/21 17:29 40 mg QAM ANTOINE Administration Vitamin D 2,000 units 09/03/21 11:30 09/04/21 07:21 Cholecalciferol 1,000 Units 25 Mcg Tab PO 10/03/21 11:29 2,000 units QDL ANTOINE Administration Past Medical History Medical History Anxiety GERD (gastroesophageal reflux disease) History of colon polyps History of gastric ulcer Hyperlipidemia Hypothyroidism On anticoagulant therapy plavix daily Transient ischemic attack (TIA) 2014--no deficits--reason for plavix Past Family History Family History Mother Family history of diabetes mellitus Daughter Family hx of colon cancer Other No family history of adverse response to anesthesia Past Surgical History Surgical History History of bilateral tubal ligation History of cataract surgery RIGHT CATARACT on 07/27/18: was given 2mg of IV versed History of colonoscopy History of dilatation and curettage History of esophagogastroduodenoscopy (EGD) History of left breast biopsy benign History of repair of right rotator cuff Social History Smoking Status: Never smoker Hx Alcohol Use: No Alcohol type: wine alcohol intake frequency: 0-2 drinks per day Hx Substance Use: No substance use type: does not use Physical Exam Vital Signs Last Vital Signs Temp 98.8 F 09/04/21 07:18 Pulse 79 09/04/21 07:18 Resp 16 09/04/21 07:18 BP 138/89 09/04/21 07:18 Pulse Ox 95 09/04/21 07:18 O2 Del Method 09/04/21 07:18 Testing Laboratory Results 09/04/21 06:11 PT 11.2 Seconds (9.0-12.0) 09/02/21 10:10 INR 1.1 (0.9-1.1) 09/02/21 10:10 APTT 64.1 Seconds (21.0-31.0) H* 09/03/21 14:03 Electrocardiogram Date: 09/02/21 Findings: + NSR @ (LA enlargement)
--- NOTE | 2021-09-04 09:22 | History & Physical Report ---
Date of Service September 04, 2021 Assessment & Plan Admission and Anticipated Discharge Date Admission Date: September 02, 2021 History of Present Illness Primary Care Provider: Kaylee Watts MD Change in BH, bloating CV: RRR Resp: CTA Abd: soft A/P: cscopy today Allergies Allergy/AdvReac Type Severity Reaction Status Date / Time pneumococcal vaccine Allergy Intermediate local Verified 09/02/21 14:55 reaction alendronate sodium AdvReac Intermediate GI upset Verified 09/02/21 14:55 calcium AdvReac Intermediate bloating, Verified 09/02/21 14:55 constipation citalopram AdvReac Intermediate headache Verified 09/02/21 14:55 ezetimibe AdvReac Intermediate elevated Verified 09/02/21 14:55 LFT's Home Medications Medication Instructions Recorded Confirmed Type ascorbic acid (vitamin C) 500 mg 500 mg PO QDL 07/05/18 09/02/21 History tablet (Vitamin C) cholecalciferol (vitamin D3) 25 2,000 unit PO QDL 07/05/18 09/02/21 History mcg (1,000 unit) tablet clopidogrel 75 mg tablet (Plavix) 75 mg PO QAM 07/05/18 09/02/21 History gemfibrozil 600 mg tablet 600 mg PO BID 07/05/18 09/02/21 History polyethylene glycol 3350 17 17 g PO QAM 07/05/18 09/02/21 History gram/dose oral powder (Miralax) cyanocobalamin (vitamin B-12) 1,000 mcg PO DAILY 07/24/21 09/02/21 History 1,000 mcg tablet (Vitamin B-12) fluticasone propionate 50 2 spray intranasal DAILY PRN 07/24/21 09/02/21 History mcg/actuation nasal Congestion spray,suspension levothyroxine 88 mcg tablet 88 mcg PO DAILYBB 07/24/21 09/02/21 History nctsaznmvyma-qsoibkma-ocqdhm 1 tab PO DAILY 07/24/21 09/02/21 History tablet (Multivitamin 50 Plus) Medical Marijuana 1 tab PO DIRECTED PRN Pain 09/01/21 09/02/21 History acetaminophen 500 mg tablet 1,000 mg PO DIRECTED PRN Pain 09/01/21 09/02/21 History (Tylenol Extra Strength) diphenhydramine 25 1 tab PO HS 09/01/21 09/02/21 History mg-acetaminophen 500 mg tablet (Tylenol PM Extra Strength) apixaban 5 mg tablet (Eliquis) 5 mg PO BID #74 tabs 09/03/21 Rx Past Med/Surg History Medical History Anxiety GERD (gastroesophageal reflux disease) History of colon polyps History of gastric ulcer Hyperlipidemia Hypothyroidism On anticoagulant therapy plavix daily Transient ischemic attack (TIA) 2014--no deficits--reason for plavix Surgical History History of bilateral tubal ligation History of cataract surgery RIGHT CATARACT on 07/27/18: was given 2mg of IV versed History of colonoscopy History of dilatation and curettage History of esophagogastroduodenoscopy (EGD) History of left breast biopsy benign History of repair of right rotator cuff Family History Mother Family history of diabetes mellitus Daughter Family hx of colon cancer Other No family history of adverse response to anesthesia Social History Smoking Status: Never smoker Second Hand Exposure: No; Hx Alcohol Use: No Hx Substance Use: No Preferred Language: Romansh Communication Ability: Effective 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
[2021-09-04] MEDS ORDERED: PROPOFOL IV EMULSION 10 MG/ML 20 ML VIAL IV ONE ×2 (09:36→10:07)
[2021-09-04] MEDS: ACETAMINOPHEN 325 MG TAB PO PRN ×2 (11:22→21:52)
--- NOTE | 2021-09-04 12:03 | GI REPORT ---
Patient Name: Jeniffer Lin Procedure Date: 09/04/2021 9:39 AM Date of : 1935 Admit Type: Inpatient Age: 86 Gender: Female Attending MD: Kannan Burr MD Procedure: Colonoscopy Providers: Kannan Burr MD Referring MD: Joshua Medina Md Indications: Change in bowel habits Medicines: See the Anesthesia note for documentation of the administered medications Complications: No immediate complications. Estimated Blood Loss: Estimated blood loss: none. Procedure: Pre-Anesthesia Assessment: - ASA Grade Assessment: III - A patient with severe systemic disease. After I obtained informed consent, the scope was passed under direct vision. Throughout the procedure, the patient's blood pressure, pulse, and oxygen saturations were monitored continuously. The Colonoscope was introduced through the anus and advanced to the terminal ileum. The colonoscopy was performed without difficulty. The patient tolerated the procedure well. The quality of the bowel preparation was good. Findings: The perianal and digital rectal examinations were normal. Multiple small and large-mouthed diverticula were found in the sigmoid colon and descending colon. Two sessile polyps were found in the transverse colon and ascending colon. The polyps were 4 to 6 mm in size. These polyps were removed with a cold snare. Resection and retrieval were complete. One clip placed on polypectomy site in ascending colon, three clips placed on polypectomy site in the transverse colon. Hemorrohoids on retroflexion. Recommendation: - Discharge patient to floor. Resume anti-coagulation. Full liquids today. Plan EUS/EGD tomorrow. Kannan Burr M.D. Kannan Burr MD 09/04/2021 12:02:36 PM This report has been signed electronically. Note Initiated On: 09/04/2021 9:39 AM Number of Addenda: 0 I attest to the content of the Intraoperative Record and orders documented therein, exceptions below {[id number]}
[2021-09-04] MEDS ORDERED: Nursing to Pharmacy Communication SCH (12:15)
--- NOTE | 2021-09-04 12:15 | Anesthesiology Progress Note ---
Date of Service September 04, 2021 Anesthesia Post Procedure Vital Signs Vital Signs: Temp Pulse Resp BP BP Pulse Ox O2 Del Method 09/04/21 11:53 98.2 F 72 20 119/76 92 Room Air 09/04/21 11:23 97.5 F L 72 16 152/73 H 95 Room Air 09/04/21 11:00 97.9 F 71 16 157/90 H 95 Room Air 09/04/21 10:42 72 14 150/87 H 94 Room Air 09/04/21 10:27 70 14 166/70 H 94 Room Air 09/04/21 10:12 71 14 157/62 H 97 Room Air 09/04/21 09:18 97.7 F 83 18 145/83 H 97 Room Air 09/04/21 07:18 98.8 F 79 16 138/89 95 Room Air 09/03/21 21:47 97.5 F L 94 H 18 148/107 H 98 Room Air 09/03/21 15:33 97.7 F 86 16 96/67 L 95 Room Air O2 Flow Rate 09/04/21 11:53 09/04/21 11:23 95 09/04/21 11:00 09/04/21 10:42 09/04/21 10:27 09/04/21 10:12 09/04/21 09:18 09/04/21 07:18 09/03/21 21:47 09/03/21 15:33 Pain Intensity Lower Abdomen: Pain Intensity: 6 Transfer of Care Handoff Completed per policy Notes Mental Status: alert / awake / arousable and participated in evaluation Patient Amnestic to Procedure: Yes Nausea / Vomiting: adequately controlled Pain: adequately controlled Airway Patency, RR, SpO2: stable & adequate BP & HR: stable & adequate Hydration State: stable & adequate Anesthetic Complications: no major complications apparent and Pt Satisfied with anesthetic care
[2021-09-04 17:24] LABS: Partial Thromboplastin Ratio 1.6; Partial Thromboplastin Time 42.9 Seconds (21.0-31.0)
--- NOTE | 2021-09-04 19:58 | Hospitalist Progress Note ---
Date of Service September 04, 2021 Assessment & Plan (1) Pulmonary emboli: (2) Early satiety: Plan 86yo F with a PMH of senile osteoporosis, recent thoracic compression fracture, hypothyroidism, dyslipidemia, nonalcoholic liver disease, history of sigmoid diverticulosis, history of TIA, h/o peptic ulcer disease and other medical problems listed below presented 09/02 with SOB, abdominal bloating and loose stools. Over the past 6 weeks, patient endorses abdominal bloating, decreased energy and decreased appetite and was found to have RLL PE in ED. She is being managed for the following: (1) Pulmonary embolism: In setting of more sedentary lifestyle over past six weeks APPLICATION DEVELOPMENT CONSULTANT. CTA chest confirms small pulmonary emboli involving the right lower lobe pulmonary arteries. No evidence for right heart strain Oxygen saturation 96% on room air Anticoagulating with IV heparin, plan to transition to coumadin as NOAC cost was higher for the patient d/t insurance. Plan to transition to Coumadin with INR 2-3 and f/u w/ coumadin clinic as OP. (2) Abdominal bloating: (3) Early satiety: (4) Weakness: Patient with history of PUD, colon cancer in family Endorsing 6 weeks of early satiety, bloating and smaller but frequent stools. No jovany blood CT abdomen pelvis from 09/01, which was negative for any acute surgical pathology but questionable presence of gastroenteritis and colitis Afebrile, no leukocytosis 09/04 colonoscopy: 2 sessile polyps in the transverse colon and ascending colon 4 to 6 mm in size with 4 clips placed at those 2 sites. Pathology sent, follow- up. Plan for EGD/EUS tomorrow, hold heparin 5 to 6 hours prior to EGD/EUS. Hold Plavix. (5) TIA (transient ischemic attack): Plan: Continue plavix when able, statin intolerant (6) Chronic hyponatremia: Plan: At baseline DVT Ppx: IV heparin Code status: FULL PCP: Mac Dispo: Admitted med/surg Admission and Anticipated Discharge Date Admission Date: September 02, 2021 Subjective Patient seen and examined at bedside as a follow-up for pulmonary embolism, early satiety and abdominal bloating Patient was sitting up in bed, on room air, eating her full liq diet s/p colonoscopy today, for EUS/EGD philomena, NAD, no new acute events overnight, reports feeling bloated today, reports improvement in her chronic back pain as before, denies headache/dizziness/chest pain/palpitation/belly pain/other review of symptoms. Patient reports moving bowels okay. Physical Exam Physical Exam: GENERAL: Alert and oriented x3. NAD, on RA. HEENT: No pallor, no icterus. Pupils equal, round and reactive to light. Oral mucosa moist. NECK: No JVD, no neck masses. HEART: S1 and S2 heard. Regular rate and rhythm. No murmur, no gallop. RESPIRATORY SYSTEM: Normal AP diameter. No accessory muscle use. No wheezing, no crackles. ABDOMEN: Soft, bowel sounds present, nontender, no distention. CENTRAL NERVOUS SYSTEM: No facial droop. Speech is clear. Obeys simple commands. Moves extremities. EXTREMITIES: No edema, no erythema seen. Results & Data Results & Data ([facility]) Vital Signs (Past 12 Hours) Vital Signs Temp Pulse Resp BP Pulse Ox O2 Del Method O2 Flow Rate 09/04/21 15:44 36.7 C 78 20 130/85 96 Room Air 09/04/21 13:37 36.9 C 74 16 121/65 93 Room Air 09/04/21 11:53 36.8 C 72 20 119/76 92 Room Air 09/04/21 11:23 36.4 C L 72 16 152/73 H 95 Room Air 95 09/04/21 11:00 36.6 C 71 16 157/90 H 95 Room Air 09/04/21 10:42 72 14 150/87 H 94 Room Air 09/04/21 10:27 70 14 166/70 H 94 Room Air 09/04/21 10:12 71 14 157/62 H 97 Room Air 09/04/21 09:18 36.5 C 83 18 145/83 H 97 Room Air (1) Pulmonary emboli Acute cor pulmonale presence: without acute cor pulmonale Chronicity: acute Pulmonary embolism type: unspecified Qualified Code(s): I26.99 - Other pulmonary embolism without acute cor pulmonale
[2021-09-04] MEDS ORDERED: MELATONIN 3 MG TAB PO PRN (21:37)
[2021-09-04] MEDS: HEPARIN SODIUM/DEXTROSE 25,000 UNITS/500 ML BAG IV SCH (21:55)
[2021-09-05 00:32] LABS: Partial Thromboplastin Ratio 2.4
[2021-09-05 00:37] LABS: Partial Thromboplastin Time 65.8 Seconds (21.0-31.0)
[2021-09-05] MEDS: LEVOTHYROXINE SODIUM 88 MCG TABLET PO SCH (06:06)
[2021-09-05 07:00] LABS: Partial Thromboplastin Ratio 2.8
[2021-09-05 07:02] LABS: Calcium 8.9 mg/dl (8.5-10.1); Creatinine Clr Calc Pharmacy 67.9 ml/min; Est GFR (African American) 102.3 ml/min; Est GFR (Non-African American) 88.3 ml/min; Magnesium 1.8 mg/dl (1.7-2.4); Potassium 3.6 mmol/L (3.5-5.1)
[2021-09-05 07:04] LABS: Partial Thromboplastin Time 77.9 Seconds (21.0-31.0)
[2021-09-05] MEDS: gemfibroziL 600 MG TAB PO SCH ×2 (08:09→17:21)
[2021-09-05] MEDS: PANTOprazole 40 MG TAB PO SCH (08:32)
[2021-09-05] MEDS: CYANOCOBALAMIN (B-12) 500 MCG TABLET PO SCH (08:32)
[2021-09-05] MEDS: CEROVITE ADV FORMULA TAB PO SCH (08:32)
--- NOTE | 2021-09-05 09:40 | History & Physical Report ---
Date of Service September 05, 2021 Assessment & Plan (1) Encounter for pre-operative examination: Plan: EUS Patient was explained in detail regarding risks, benefits, limitations and alternatives of the above endoscopic procedure. Risks of intravenous sedation used for procedure were also explained. Risks include, but not limited to perforation, bleeding, infection, respiratory distress, cardiac arrest and . Patient is also aware about the possibility of missed lesion. Patient's questions were answered. The patient verbalized understanding the information and agreed to undergo the procedure. Admission and Anticipated Discharge Date Admission Date: September 02, 2021 History of Present Illness Primary Care Provider: Kaylee Watts MD EUS for bloating and exclusion of pancreas cancer Allergies Allergy/AdvReac Type Severity Reaction Status Date / Time pneumococcal vaccine Allergy Intermediate local Verified 09/02/21 14:55 reaction alendronate sodium AdvReac Intermediate GI upset Verified 09/02/21 14:55 calcium AdvReac Intermediate bloating, Verified 09/02/21 14:55 constipation citalopram AdvReac Intermediate headache Verified 09/02/21 14:55 ezetimibe AdvReac Intermediate elevated Verified 09/02/21 14:55 LFT's Home Medications Medication Instructions Recorded Confirmed Type ascorbic acid (vitamin C) 500 mg 500 mg PO QDL 07/05/18 09/02/21 History tablet (Vitamin C) cholecalciferol (vitamin D3) 25 2,000 unit PO QDL 07/05/18 09/02/21 History mcg (1,000 unit) tablet clopidogrel 75 mg tablet (Plavix) 75 mg PO QAM 07/05/18 09/02/21 History gemfibrozil 600 mg tablet 600 mg PO BID 07/05/18 09/02/21 History polyethylene glycol 3350 17 17 g PO QAM 07/05/18 09/02/21 History gram/dose oral powder (Miralax) cyanocobalamin (vitamin B-12) 1,000 mcg PO DAILY 07/24/21 09/02/21 History 1,000 mcg tablet (Vitamin B-12) fluticasone propionate 50 2 spray intranasal DAILY PRN 07/24/21 09/02/21 History mcg/actuation nasal Congestion spray,suspension levothyroxine 88 mcg tablet 88 mcg PO DAILYBB 07/24/21 09/02/21 History qbfhtwiyqfpi-nakflqae-iilnut 1 tab PO DAILY 07/24/21 09/02/21 History tablet (Multivitamin 50 Plus) Medical Marijuana 1 tab PO DIRECTED PRN Pain 09/01/21 09/02/21 History acetaminophen 500 mg tablet 1,000 mg PO DIRECTED PRN Pain 09/01/21 09/02/21 History (Tylenol Extra Strength) diphenhydramine 25 1 tab PO HS 09/01/21 09/02/21 History mg-acetaminophen 500 mg tablet (Tylenol PM Extra Strength) apixaban 5 mg tablet (Eliquis) 5 mg PO BID #74 tabs 09/03/21 Rx Past Med/Surg History Medical History Anxiety GERD (gastroesophageal reflux disease) History of colon polyps History of gastric ulcer Hyperlipidemia Hypothyroidism On anticoagulant therapy plavix daily Transient ischemic attack (TIA) 2014--no deficits--reason for plavix Surgical History History of bilateral tubal ligation History of cataract surgery RIGHT CATARACT on 07/27/18: was given 2mg of IV versed History of colonoscopy History of dilatation and curettage History of esophagogastroduodenoscopy (EGD) History of left breast biopsy benign History of repair of right rotator cuff Family History Mother Family history of diabetes mellitus Daughter Family hx of colon cancer Other No family history of adverse response to anesthesia Social History Smoking Status: Never smoker Second Hand Exposure: No; Hx Alcohol Use: No Hx Substance Use: No Preferred Language: Mohawk Communication Ability: 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 Beliefs That Will Affect Care: None marital status: Current Living Situation: Alone Other Information That Helps Us Care for You: No Feels Safe at Home: Yes Safety Concerns: Feels Safe At This Time Assistive Devices: Cane and Walker Review of Systems All systems reviewed & are unremarkable except as noted in HPI & below Physical Exam Constitutional: comfortable; no acute distress Respiratory: normal respiratory effort, lungs clear to auscultation Cardiovascular: RRR, no murmur, no edema Gastrointestinal (Abdomen): normal bowel sounds, soft, nontender, no hepatosplenomegaly Results & Data ([facility]) Vital Signs (Past 12 Hours) Vital Signs Temp Pulse Resp BP Pulse Ox O2 Del Method 09/05/21 07:56 36.4 C L 79 16 130/83 94 Room Air 09/05/21 07:16 36.6 C 83 16 137/80 92 Room Air 09/04/21 22:29 36.8 C 81 16 133/83 94 Room Air Code Status & VTE Plan VTE Prophylaxis Plan VTE Prophylaxis will be ordered: Yes
[2021-09-05] MEDS ORDERED: GLYCOPYRROLATE 0.2 MG/ML VIAL ONE (09:45)
[2021-09-05] MEDS ORDERED: ONDANSETRON INJ 2 MG/ML 2 ML VIAL ONE (09:45)
[2021-09-05] MEDS ORDERED: LIDOCAINE 2% MPF LOCAL 5 ML VIAL INFIL ONE (09:45)
[2021-09-05] MEDS ORDERED: PROPOFOL IV EMULSION 10 MG/ML 20 ML VIAL IV ONE ×2 (09:45→10:34)
--- NOTE | 2021-09-05 09:45 | Anesthesiology Consultation ---
Date of Service September 05, 2021 Assessment & Plan (1) Encounter for pre-operative examination: Chart Review Chart Review: Acceptable Risk for Surgery and Patient NOT seen in Pre Admission Testing Consults Requested none History Surgery Operation Date: 09/04/21 17:30 Proposed Procedures p Colonoscopy Dr Burr - Kannan Burr MD Operation Date: 09/05/21 10:10 Proposed Procedures p Endoscopic Ultrasonography Upper - Gokul Chavez MD s Esophagogastroduodenoscopy - Gokul Chavez MD Height/Weight Height: 4 ft 10 in Weight: 69.4 kg Allergies Allergy/AdvReac Type Severity Reaction Status Date / Time pneumococcal vaccine Allergy Intermediate local Verified 09/02/21 14:55 reaction alendronate sodium AdvReac Intermediate GI upset Verified 09/02/21 14:55 calcium AdvReac Intermediate bloating, Verified 09/02/21 14:55 constipation citalopram AdvReac Intermediate headache Verified 09/02/21 14:55 ezetimibe AdvReac Intermediate elevated Verified 09/02/21 14:55 LFT's Medications Home Medications Medication Instructions Recorded Confirmed Last Taken ascorbic acid (vitamin C) 500 mg 500 mg PO QDL 07/05/18 09/02/21 09/01/21 tablet (Vitamin C) cholecalciferol (vitamin D3) 25 2,000 unit PO QDL 07/05/18 09/02/21 09/01/21 mcg (1,000 unit) tablet clopidogrel 75 mg tablet (Plavix) 75 mg PO QAM 07/05/18 09/02/21 09/01/21 gemfibrozil 600 mg tablet 600 mg PO BID 07/05/18 09/02/21 09/01/21 polyethylene glycol 3350 17 17 g PO QAM 07/05/18 09/02/21 09/01/21 gram/dose oral powder (Miralax) cyanocobalamin (vitamin B-12) 1,000 mcg PO DAILY 07/24/21 09/02/21 09/01/21 1,000 mcg tablet (Vitamin B-12) fluticasone propionate 50 2 spray intranasal DAILY PRN 07/24/21 09/02/21 Unknown mcg/actuation nasal Congestion spray,suspension levothyroxine 88 mcg tablet 88 mcg PO DAILYBB 07/24/21 09/02/2122 auzushvgkojo-gumuxamh-ykmwhs 1 tab PO DAILY 07/24/21 09/02/21 09/01/21 tablet (Multivitamin 50 Plus) Medical Marijuana 1 tab PO DIRECTED PRN Pain 09/01/21 09/02/21 Unknown acetaminophen 500 mg tablet 1,000 mg PO DIRECTED PRN Pain 09/01/21 09/02/21 Unknown (Tylenol Extra Strength) diphenhydramine 25 1 tab PO HS 09/01/21 09/02/21 09/01/21 mg-acetaminophen 500 mg tablet (Tylenol PM Extra Strength) apixaban 5 mg tablet (Eliquis) 5 mg PO BID #74 tabs 09/03/21 Unknown Active Medications Generic Name Dose Route Start Last Admin Trade Name Freq PRN Reason Stop Dose Admin Acetaminophen 650 mg 09/02/21 16:16 09/04/21 21:52 Acetaminophen 325 Mg Tab PO 10/02/21 16:15 650 mg Q4H PRN Administration pain/fever Clopidogrel Bisulfate 75 mg 09/03/21 09:00 09/04/21 07:26 Clopidogrel Bisulfate 75 Mg Tab PO 10/03/21 08:59 Not Given QAM ANTOINE Cyanocobalamin 1,000 mcg 09/03/21 09:00 09/05/21 08:32 Cyanocobalamin (B-12) 500 Mcg Tablet PO 10/03/21 08:59 1,000 mcg DAILY ANTOINE Administration Gemfibrozil 600 mg 09/03/21 07:30 09/05/21 08:09 Gemfibrozil 600 Mg Tab PO 10/03/21 07:29 Not Given BID@0730,1630 ANTOINE Heparin Sodium/Dextrose 25,000 units in 500 mls @ 0 mls/hr 09/02/21 17:00 09/05/21 07:10 Heparin Sodium/Dextrose IV 10/02/21 16:59 0 units/hr .Q0M ANTOINE 0 mls/hr Titration Protocol 0 UNITS/HR Levothyroxine Sodium 88 mcg 09/03/21 06:30 09/05/21 06:06 Levothyroxine Sodium 88 Mcg Tablet PO 10/03/21 06:29 88 mcg DAILYBB ANTOINE Administration Melatonin 3 mg 09/04/21 21:37 09/04/21 21:52 Melatonin 3 Mg Tab PO 10/04/21 21:36 3 mg HS PRN Administration Sleep Multivitamins/Minerals 1 tab 09/03/21 09:00 09/05/21 08:32 Cerovite Adv Formula Tab PO 10/03/21 08:59 1 tab DAILY ANTOINE Administration Ondansetron HCl 4 mg 09/02/21 16:16 09/03/21 21:47 Ondansetron Inj 2 Mg/Ml 2 Ml Vial IV 10/02/21 16:15 4 mg Q6H PRN Administration Nausea Pantoprazole Sodium 40 mg 09/02/21 17:30 09/05/21 08:32 Pantoprazole 40 Mg Tab PO 10/02/21 17:29 40 mg QAM ANTOINE Administration Vitamin D 2,000 units 09/03/21 11:30 09/04/21 07:21 Cholecalciferol 1,000 Units 25 Mcg Tab PO 10/03/21 11:29 2,000 units QDL ANTOINE Administration NPO Date Last Intake of Fluids: 09/05/21 Time Last Intake of Fluids: 08:32 Last Intake of Fluids Comment: sips of water Date Last Intake of Solids: 09/05/21 Time Last Intake of Solids: 08:32 Last Intake of Solids Comment: morning pills Past Medical History Medical History Anxiety GERD (gastroesophageal reflux disease) History of colon polyps History of gastric ulcer Hyperlipidemia Hypothyroidism On anticoagulant therapy plavix daily Transient ischemic attack (TIA) 2014--no deficits--reason for plavix Past Family History Family History Mother Family history of diabetes mellitus Daughter Family hx of colon cancer Other No family history of adverse response to anesthesia Past Surgical History Surgical History History of bilateral tubal ligation History of cataract surgery RIGHT CATARACT on 07/27/18: was given 2mg of IV versed History of colonoscopy History of dilatation and curettage History of esophagogastroduodenoscopy (EGD) History of left breast biopsy benign History of repair of right rotator cuff Social History Smoking Status: Never smoker Hx Alcohol Use: No Alcohol type: wine alcohol intake frequency: 0-2 drinks per day Hx Substance Use: No substance use type: does not use Physical Exam Vital Signs Last Vital Signs Temp 97.5 F L 09/05/21 07:56 Pulse 79 09/05/21 07:56 Resp 16 09/05/21 07:56 BP 130/83 09/05/21 07:56 Pulse Ox 94 09/05/21 07:56 O2 Del Method 09/05/21 07:56 O2 Flow Rate 95 09/04/21 11:23 Testing Laboratory Results 09/04/21 06:11 09/05/21 05:55 PT 11.2 Seconds (9.0-12.0) 09/02/21 10:10 INR 1.1 (0.9-1.1) 09/02/21 10:10 APTT 77.9 Seconds (21.0-31.0) H* 09/05/21 05:55
--- NOTE | 2021-09-05 10:25 | GI REPORT ---
Patient Name: Jeniffer Lin Procedure Date: 09/05/2021 10:05 AM Date of : 1935 Admit Type: Inpatient Age: 86 Gender: Female Attending MD: Gokul Chavez MD Procedure: Upper GI endoscopy Providers: Gokul Chavez MD Referring MD: Joshua Medina Md Indications: Abdominal bloating Medicines: Propofol per Anesthesia Complications: No immediate complications. Estimated Blood Loss: Estimated blood loss: none. Procedure: Pre-Anesthesia Assessment: - Prior to the procedure, a History and Physical was performed, and patient medications, allergies and sensitivities were reviewed. The patient's tolerance of previous anesthesia was reviewed. - The risks and benefits of the procedure and the sedation options and risks were discussed with the patient. All questions were answered and informed consent was obtained. - Patient identification and proposed procedure were verified prior to the procedure by the physician and the nurse. The procedure was verified in the procedure room. - Pre-procedure physical examination revealed no contraindications to sedation. After obtaining informed consent, the endoscope was passed under direct vision. Throughout the procedure, the patient's blood pressure, pulse, and oxygen saturations were monitored continuously. The Endoscope was introduced through the mouth, and advanced to the second part of duodenum. The upper GI endoscopy was accomplished without difficulty. The patient tolerated the procedure well. Findings: The examined esophagus was normal. Mildly erythematous mucosa was found in the stomach. Biopsies were taken with a cold forceps for Helicobacter pylori testing. Verification of patient identification for the specimen was done by the physician and nurse using the patient's name and date. The duodenal bulb and second portion of the duodenum were normal. Biopsies for histology were taken with a cold forceps for evaluation of celiac disease. Impression: - Normal esophagus. - Erythematous mucosa in the stomach. Biopsied. - Normal duodenal bulb and second portion of the duodenum. Biopsied. Recommendation: - Await pathology results. - Perform an upper endoscopic ultrasound (UEUS) today. Gokul Chavez MD 09/05/2021 10:25:05 AM This report has been signed electronically. Note Initiated On: 09/05/2021 10:05 AM Number of Addenda: 0 I attest to the content of the Intraoperative Record and orders documented therein, exceptions below {[id number]}
--- NOTE | 2021-09-05 10:38 | Operative Report ---
Post Operative Report Pre & Post Diagnosis Operation Date: 09/04/21 17:30 Pre-Op Diagnosis: DECREASED APPETITE, WEIGHT LOSS Post-Op Diagnosis: colon polyps. diverticulosis. Operation Date: 09/05/21 10:10 Pre-Op Diagnosis: RLL PE, DECREASED APPETITE, WEIGHT LOSS EUS for bloating and exclusion of pancreas ca I identified the patient and participated in the time-out.: Yes Procedure Operation Date: 09/04/21 17:30 Actual Procedures p Colonoscopy Polypectomy - Kannan Burr MD Operation Date: 09/05/21 10:10 <No data on this case meets the specified criteria> Surgeon Gokul Chavez MD Data Base Administrator None Estimated Blood Loss 0 Findings See Below (Normal Pancreas) Specimens Stomach biopsy and small bowel Description of Procedure EUS I attest to the content of the Intraoperative Record and any orders documented therein. Any exceptions are noted below.
--- NOTE | 2021-09-05 11:00 | Anesthesiology Progress Note ---
Date of Service September 05, 2021 Anesthesia Post Procedure Vital Signs Vital Signs: Temp Pulse Pulse Resp BP Pulse Ox O2 Del Method 09/05/21 10:50 81 16 102/61 99 Oxymask 09/05/21 10:42 97.5 F L 86 13 111/57 L 94 Oxymask 09/05/21 09:38 98.4 F 84 20 122/90 95 Room Air 09/05/21 07:56 97.5 F L 79 16 130/83 94 Room Air 09/05/21 07:16 97.9 F 83 16 137/80 92 Room Air 09/04/21 22:29 98.2 F 81 16 133/83 94 Room Air 09/04/21 15:44 98.1 F 78 20 130/85 96 Room Air 09/04/21 13:37 98.4 F 74 16 121/65 93 Room Air 09/04/21 11:53 98.2 F 72 20 119/76 92 Room Air 09/04/21 11:23 97.5 F L 72 16 152/73 H 95 Room Air 09/04/21 11:00 97.9 F 71 16 157/90 H 95 Room Air O2 Flow Rate 09/05/21 10:50 10 09/05/21 10:42 10 09/05/21 09:38 09/05/21 07:56 09/05/21 07:16 09/04/21 22:29 09/04/21 15:44 09/04/21 13:37 09/04/21 11:53 09/04/21 11:23 95 09/04/21 11:00 Pain Intensity Lower Abdomen: Pain Intensity: 6 Transfer of Care Handoff Completed per policy Notes Mental Status: alert / awake / arousable and participated in evaluation Patient Amnestic to Procedure: Yes Nausea / Vomiting: adequately controlled Pain: adequately controlled Airway Patency, RR, SpO2: stable & adequate BP & HR: stable & adequate Hydration State: stable & adequate Anesthetic Complications: no major complications apparent and Pt Satisfied with anesthetic care
--- NOTE | 2021-09-05 11:07 | GI REPORT ---
Patient Name: Jeniffer Lin Procedure Date: 09/05/2021 10:07 AM Date of : 1935 Admit Type: Inpatient Age: 86 Gender: Female Attending MD: Gokul Chavez MD Procedure: Upper EUS Providers: Gokul Chavez MD Referring MD: Joshua Medina Md Indications: Abdominal distress Medicines: Propofol per Anesthesia Complications: No immediate complications. Estimated Blood Loss: Estimated blood loss: none. Procedure: Pre-Anesthesia Assessment: - Prior to the procedure, a History and Physical was performed, and patient medications, allergies and sensitivities were reviewed. The patient's tolerance of previous anesthesia was reviewed. - The risks and benefits of the procedure and the sedation options and risks were discussed with the patient. All questions were answered and informed consent was obtained. - Patient identification and proposed procedure were verified prior to the procedure by the physician and the nurse. The procedure was verified in the procedure room. - Pre-procedure physical examination revealed no contraindications to sedation. After obtaining informed consent, the endoscope was passed under direct vision. Throughout the procedure, the patient's blood pressure, pulse, and oxygen saturations were monitored continuously. The Endosonoscope was introduced through the mouth, and advanced to the second part of duodenum. The upper EUS was accomplished without difficulty. The patient tolerated the procedure well. Findings: ENDOSONOGRAPHIC FINDING: : There was no sign of significant endosonographic abnormality in the ampulla. No masses were identified. There was no sign of significant endosonographic abnormality in the common bile duct. The maximum diameter of the duct was 4 mm. No stones and no biliary sludge were identified. There was no sign of significant endosonographic abnormality in the gallbladder. No stones were identified. There was no sign of significant endosonographic abnormality in the visualized portion of the liver. Homogeneous parenchyma was identified. There was no sign of significant endosonographic abnormality in the entire pancreas. The pancreatic duct measured up to 2 mm in diameter. Few scattered subcentimeter hyperechoic spots, likely calcifications or hemangiomas. There was no sign of significant endosonographic abnormality in the visualized portion of the left adrenal gland. There was no sign of significant endosonographic abnormality involving the celiac trunk. Impression: - There was no sign of significant pathology in the ampulla. - There was no sign of significant pathology in the common bile duct. - There was no sign of significant pathology in the gallbladder. - There was no evidence of significant pathology in the visualized portion of the liver. - There was no sign of significant pathology in the entire pancreas. No mass lesion seen. - Endosonographic images of the left adrenal gland were unremarkable. - The celiac trunk was endosonographically normal. Recommendation: - [facility] patient [facility]. - Recall GI if needed. Gokul Chavez MD 09/05/2021 11:06:33 AM This report has been signed electronically. Note Initiated On: 09/05/2021 10:07 AM Number of Addenda: 0 I attest to the content of the Intraoperative Record and orders documented therein, exceptions below {[id number]}
[2021-09-05] MEDS ORDERED: Nursing to Pharmacy Communication SCH (11:30)
[2021-09-05] MEDS: CHOLECALCIFEROL 1,000 UNITS 25 MCG TAB PO SCH (11:37)
[2021-09-05] MEDS ORDERED: WARFARIN SOD 7.5 MG TAB PO ONE (14:34)
[2021-09-05] MEDS ORDERED: COUGH DROP (SUGAR FREE) LOZ 24 LOZ/1 BOX BUCCAL PRN (14:45)
[2021-09-05] MEDS: HEPARIN SODIUM/DEXTROSE 25,000 UNITS/500 ML BAG IV SCH (18:02)
--- NOTE | 2021-09-05 18:53 | Hospitalist Progress Note ---
Date of Service September 05, 2021 Assessment & Plan (1) Pulmonary emboli: (2) Early satiety: Plan 86yo F with a PMH of senile osteoporosis, recent thoracic compression fracture, hypothyroidism, dyslipidemia, nonalcoholic liver disease, history of sigmoid diverticulosis, history of TIA, h/o peptic ulcer disease and other medical problems listed below presented 09/02 with SOB, abdominal bloating and loose stools. Over the past 6 weeks, patient endorses abdominal bloating, decreased energy and decreased appetite and was found to have RLL PE in ED. She is being managed for the following: (1) Pulmonary embolism: In setting of more sedentary lifestyle over past six weeks C[employer]URI[employer]. CTA chest confirms small pulmonary emboli involving the right lower lobe pulmonary arteries. No evidence for right heart strain Oxygen saturation 96% on room air Anticoagulating with IV heparin, Coumadin 7.5 mg today. Goal INR 2-3 and f/u w/ coumadin clinic as OP. Daily adjust coumadin until goal reached. (2) Abdominal bloating: (3) Early satiety: (4) Weakness: Patient with history of PUD, colon cancer in family Endorsing 6 weeks of early satiety, bloating and smaller but frequent stools. No jovany blood CT abdomen pelvis from 09/01, which was negative for any acute surgical pathology but questionable presence of gastroenteritis and colitis Afebrile, no leukocytosis 09/04 colonoscopy: 2 sessile polyps in the transverse colon and ascending colon 4 to 6 mm in size with 4 clips placed at those 2 sites. Pathology sent, follow- up. 09/05 EGD scope: erythematous stomach mucosa, biopsied. Normal duodenum bulb and 2nd portion, biopsied. F/u Pathology report. ?? plan for EUS today. Appreciate GI recs. (5) TIA (transient ischemic attack): Plan: Continue plavix when able, statin intolerant (6) Chronic hyponatremia: Plan: At baseline DVT Ppx: IV heparin Code status: FULL PCP: Mac Dispo: Admitted med/surg Admission and Anticipated Discharge Date Admission Date: September 02, 2021 Subjective Patient seen and examined at bedside as a follow-up for pulmonary embolism, early satiety and abdominal bloating Patient was lying in bed, on room air, s/p EGD scope today, NAD, no new acute events overnight, reports feeling ok today, reports improvement in her chronic back pain as before, denies headache/dizziness/chest pain/palpitation/belly pain/other review of symptoms. Patient moving bowels appropriate. Physical Exam Physical Exam: GENERAL: Alert and oriented x3. NAD, on RA. HEENT: No pallor, no icterus. Pupils equal, round and reactive to light. Oral mucosa moist. NECK: No JVD, no neck masses. HEART: S1 and S2 heard. Regular rate and rhythm. No murmur, no gallop. RESPIRATORY SYSTEM: Normal AP diameter. No accessory muscle use. No wheezing, no crackles. ABDOMEN: Soft, bowel sounds present, nontender, no distention. CENTRAL NERVOUS SYSTEM: No facial droop. Speech is clear. Obeys simple commands. Moves extremities. EXTREMITIES: No edema, no erythema seen. Results & Data Results & Data ([facility]) Vital Signs (Past 12 Hours) Vital Signs Temp Pulse Pulse Pulse Resp BP BP 09/05/21 15:14 36.8 C 77 18 118/74 09/05/21 13:46 37.3 C 98 H 20 110/70 09/05/21 13:03 36.9 C 95 H 20 118/74 09/05/21 12:40 37.0 C 94 H 14 125/83 09/05/21 12:06 37 C 94 H 16 150/80 H 09/05/21 11:39 36.7 C 84 20 144/83 H 09/05/21 11:10 37.3 C 84 16 133/84 09/05/21 11:00 36.6 C 89 20 148/85 H 09/05/21 10:50 81 16 102/61 09/05/21 10:42 36.4 C L 86 13 111/57 L 09/05/21 09:38 36.9 C 84 20 122/90 09/05/21 07:56 36.4 C L 79 16 130/83 09/05/21 07:16 36.6 C 83 16 137/80 Pulse Ox O2 Del Method O2 Flow Rate 09/05/21 15:14 92 Room Air 09/05/21 13:46 95 Room Air 09/05/21 13:03 96 Room Air 09/05/21 12:40 94 Room Air 09/05/21 12:06 92 Room Air 09/05/21 11:39 92 09/05/21 11:10 93 Room Air 09/05/21 11:00 94 Room Air 09/05/21 10:50 99 Oxymask 10 09/05/21 10:42 94 Oxymask 10 09/05/21 09:38 95 Room Air 09/05/21 07:56 94 Room Air 09/05/21 07:16 92 Room Air (1) Pulmonary emboli Acute cor pulmonale presence: without acute cor pulmonale Chronicity: acute Pulmonary embolism type: unspecified Qualified Code(s): I26.99 - Other pulmonary embolism without acute cor pulmonale
[2021-09-05] MEDS: ACETAMINOPHEN 325 MG TAB PO PRN (22:09)
[2021-09-06 01:13] LABS: Partial Thromboplastin Ratio 2.2
[2021-09-06 01:26] LABS: Partial Thromboplastin Time 60.2 Seconds (21.0-31.0)
[2021-09-06] MEDS: LEVOTHYROXINE SODIUM 88 MCG TABLET PO SCH (06:21)
[2021-09-06 06:31] LABS: INR 1.2 (0.9-1.1); Prothrombin Time 12.8 Seconds (9.0-12.0)
[2021-09-06 06:41] LABS: BUN Creatinine Ratio 14.5 (10-20); Calcium 8.9 mg/dl (8.5-10.1); Creatinine Clr Calc Pharmacy 61.7 ml/min; Est GFR (African American) 99.1 ml/min; Est GFR (Non-African American) 85.5 ml/min; Magnesium 1.7 mg/dl (1.7-2.4); Potassium 3.8 mmol/L (3.5-5.1)
[2021-09-06] MEDS: CEROVITE ADV FORMULA TAB PO SCH (08:04)
[2021-09-06] MEDS: CLOPIDOGREL BISULFATE 75 MG TAB PO SCH (08:04)
[2021-09-06] MEDS: gemfibroziL 600 MG TAB PO SCH ×2 (08:05→16:45)
[2021-09-06] MEDS: CYANOCOBALAMIN (B-12) 500 MCG TABLET PO SCH (08:05)
[2021-09-06] MEDS: PANTOprazole 40 MG TAB PO SCH (08:05)
[2021-09-06 09:01] LABS: Partial Thromboplastin Ratio 2.7
[2021-09-06 09:14] LABS: Partial Thromboplastin Time 73.2 Seconds (21.0-31.0)
[2021-09-06] MEDS ORDERED: WARFARIN SOD 7.5 MG TAB PO ONE (09:27)
[2021-09-06] MEDS: CHOLECALCIFEROL 1,000 UNITS 25 MCG TAB PO SCH (13:13)
[2021-09-06 15:59] LABS: Partial Thromboplastin Ratio 2.7
[2021-09-06 16:15] LABS: Partial Thromboplastin Time 73.9 Seconds (21.0-31.0)
--- NOTE | 2021-09-06 16:43 | Hospitalist Progress Note ---
Date of Service September 06, 2021 Assessment & Plan (1) Pulmonary emboli: (2) Early satiety: Plan 86yo F with a PMH of senile osteoporosis, recent thoracic compression fracture, hypothyroidism, dyslipidemia, nonalcoholic liver disease, history of sigmoid diverticulosis, history of TIA, h/o peptic ulcer disease and other medical problems listed below presented 09/02 with SOB, abdominal bloating and loose stools. Over the past 6 weeks, patient endorses abdominal bloating, decreased energy and decreased appetite and was found to have RLL PE in ED. She is being managed for the following: (1) Pulmonary embolism: In setting of more sedentary lifestyle over past six weeks [employer]NAGER [employer]. CTA chest confirms small pulmonary emboli involving the right lower lobe pulmonary arteries. No evidence for right heart strain Oxygen saturation 96% on room air Anticoagulating with IV heparin, Coumadin 7.5 mg again today, INR of 1.2 today. Goal INR 2-3 and f/u w/ coumadin clinic as OP.Daily adjust coumadin until goal reached. (2) Abdominal bloating: (3) Early satiety: (4) Weakness: Patient with history of PUD, colon cancer in family Endorsing 6 weeks of early satiety, bloating and smaller but frequent stools. No jovany blood CT abdomen pelvis from 09/01, which was negative for any acute surgical pathology but questionable presence of gastroenteritis and colitis Afebrile, no leukocytosis 09/04 colonoscopy: 2 sessile polyps in the transverse colon and ascending colon 4 to 6 mm in size with 4 clips placed at those 2 sites. Pathology sent,follow- up. 09/05 EGD scope: erythematous stomach mucosa, biopsied. Normal duodenum bulb and 2nd portion, biopsied. F/uPathology report. 09/05 EUS: normal study. Appreciate GI recs. (5) TIA (transient ischemic attack): Plan: Continue plavix when able, statin intolerant (6) Chronic hyponatremia: Plan: At baseline DVT Ppx:IV heparin Code status:FULL PCP: [facility] Dispo: Admitted med/surg 09/06: Pt's Dtr Radhika updated over the phone, answered all her questions. Admission and Anticipated Discharge Date Admission Date: September 02, 2021 Subjective Patient seen and examined at bedside as a follow-up for pulmonary embolism, early satiety and abdominal bloating Patient was sitting up in chair, on room air, NAD, no new acute events over night, reports feeling better, reports improvement in her chronic back pain as before, denies headache/dizziness/chest pain/palpitation/belly pain/other review of symptoms. Patient moving bowels appropriate. Reports eating ok. Physical Exam Physical Exam: GENERAL: Alert and oriented x3. NAD, on RA. HEENT: No pallor, no icterus. Pupils equal, round and reactive to light. Oral mucosa moist. NECK: No JVD, no neck masses. HEART: S1 and S2 heard. Regular rate and rhythm. No murmur, no gallop. RESPIRATORY SYSTEM: Normal AP diameter. No accessory muscle use. No wheezing, no crackles. ABDOMEN: Soft, bowel sounds present, nontender, no distention. CENTRAL NERVOUS SYSTEM: No facial droop. Speech is clear. Obeys simple commands. Moves extremities. EXTREMITIES: No edema, no erythema seen. Results & Data Results & Data ([facility]) Vital Signs (Past 12 Hours) Vital Signs Temp Pulse Resp BP Pulse Ox O2 Del Method 09/06/21 15:21 36.5 C 66 14 111/72 92 Room Air 09/06/21 09:24 121/83 09/06/21 07:23 36.9 C 75 16 151/87 H 93 Room Air (1) Pulmonary emboli Acute cor pulmonale presence: without acute cor pulmonale Chronicity: acute Pulmonary embolism type: unspecified Qualified Code(s): I26.99 - Other pulmonary embolism without acute cor pulmonale
[2021-09-06] MEDS: HEPARIN SODIUM/DEXTROSE 25,000 UNITS/500 ML BAG IV SCH (19:52)
[2021-09-06] MEDS: ACETAMINOPHEN 325 MG TAB PO PRN (21:17)
[2021-09-06 22:42] LABS: Partial Thromboplastin Ratio 2.8
[2021-09-06 22:45] LABS: Partial Thromboplastin Time 78.2 Seconds (21.0-31.0)
[2021-09-07] MEDS: LEVOTHYROXINE SODIUM 88 MCG TABLET PO SCH (06:06)
[2021-09-07] MEDS: CEROVITE ADV FORMULA TAB PO SCH (08:15)
[2021-09-07] MEDS: CYANOCOBALAMIN (B-12) 500 MCG TABLET PO SCH (08:15)
[2021-09-07] MEDS: gemfibroziL 600 MG TAB PO SCH (08:15)
[2021-09-07] MEDS: PANTOprazole 40 MG TAB PO SCH (08:15)
[2021-09-07] MEDS: CLOPIDOGREL BISULFATE 75 MG TAB PO SCH (08:15)
[2021-09-07 08:25] LABS: Hematocrit (blood only) 37.2 % (34.1-44.9); Hemoglobin 12.8 g/dl (12.0-16.0); Mean Corpuscular Hemoglobin 30.8 pg (25.0-34.0); Mean Corpuscular Hgb Conc 34.4 g/dL (32.0-36.0); Mean Corpuscular Volume 89.4 fL (80.0-100.0); Mean Platelet Volume 9.2 fL (9.4-12.3); Platelet Count 249 K/uL (130-400); RDW Coefficient of Variation 13.2 % (11.5-14.5); RDW Standard Deviation 43.2 fL (36.4-46.3); Red Blood Count 4.16 M/uL (3.93-5.22); White Blood Count 4.98 K/ul (4.8-10.8)
[2021-09-07 08:35] LABS: INR 2.1 (0.9-1.1); Prothrombin Time 21.9 Seconds (9.0-12.0)
[2021-09-07 08:51] LABS: Partial Thromboplastin Ratio 2.8
[2021-09-07 08:58] LABS: Partial Thromboplastin Time 76.4 Seconds (21.0-31.0)
[2021-09-07 09:07] LABS: Anion Gap 7 (3-11); Blood Urea Nitrogen 9 mg/dl (6-23); Calcium 9.2 mg/dl (8.5-10.1); Carbon Dioxide 27 mmol/L (21-32); Chloride 98 mmol/L (98-107); Creatinine Clr Calc Pharmacy 169.8 ml/min; Est GFR (African American) 138.3 ml/min; Est GFR (Non-African American) 119.3 ml/min; Glucose 98 mg/dl (70-99(Fasting)); Magnesium 1.8 mg/dl (1.7-2.4); Potassium 3.9 mmol/L (3.5-5.1); Sodium 132 mmol/L (136-145)
[2021-09-07] MEDS: CHOLECALCIFEROL 1,000 UNITS 25 MCG TAB PO SCH (12:07)
--- NOTE | 2021-09-07 13:20 | Discharge Summary ---
Date of Service September 07, 2021 Admission HPI Per Admitting Provider Chief Complaint: abdominal bloating, SOB Primary Care Provider: Kaylee Watts MD This is an 86yo F with a PMH of senile osteoporosis, recent thoracic compression fracture, hypothyroidism, dyslipidemia, nonalcoholic liver disease, history of sigmoid diverticulosis, history of TIA, h/o peptic ulcer disease and other medical problems listed below who presents with SOB, abdominal bloating and loose stools. Over the past 6 weeks, patient endorses abdominal bloating, decreased energy and decreased appetite. Was struggling with back pain in setting of thoracic compression fractures that have since improved. Per family at bedside, patient notably still has decreased appetite with early satiety. Having 3-4 bowel movements a day that are described as loose. Denies any jovany blood in stool. Did present to the ED yesterday and underwent CT abdomen pelvis, which was negative for any acute surgical pathology but questionable presence of gastroenteritis and colitis. Does have history of peptic ulcer disease on EGD from 2018 with nonbleeding ulcers. Patient with family history of lymphoma and daughter with colon cancer. Denies any jovany weight loss or night sweats. No fever, chills, chest pain, N/V, abdominal pain, dysuria or constipation. Admission Exam Per Admitting Provider General Appearance:WD/WN, vitals as above, NAD, sitting up in bed, pleasant, anxious Head: normocephalic, atraumatic Eyes:normal inspection, PERRL, conjunctivae normal, anicteric sclerae ENT: external ear and nose normal, oropharynx normal Neck: normal visual inspection, trachea midline, no thyromegaly Respiratory:normal respiratory effort, lungs clear to auscultation, no wheeze, rales, rhonchi. No accessory muscle use Cardiovascular: regular rate, rhythm, no murmur, normal peripheral pulses, no BLE edema. Vessels: no JVD Chest: normal inspection of chest Abdomen/GI: normal bowel sounds, distended but nontender, no hepatosplenomegaly Extremities/Musculoskeletal: no cyanosis or clubbing, extremities motor strength 5/5 Neurologic: PERRL, EOMI, accommodation nl, no face palsy, no dysarthria, CN's II-XI intact bilaterally and moves all extremities Psychiatric:A+Ox3, euthymic affect Skin: no rashes, normal color, warm/dry Principal Diagnosis Pulmonary embolism Abdominal bloating Discharge Exam GENERAL: Alert and oriented x3. NAD, on RA. HEENT: No pallor, no icterus. Pupils equal, round and reactive to light. Oral mucosa moist. NECK: No JVD, no neck masses. HEART: S1 and S2 heard. Regular rate and rhythm. No murmur, no gallop. RESPIRATORY SYSTEM: Normal AP diameter. No accessory muscle use. No wheezing, no crackles. ABDOMEN: Soft, bowel sounds present, nontender, no distention. CENTRAL NERVOUS SYSTEM: No facial droop. Speech is clear. Obeys simple commands. Moves extremities. EXTREMITIES: No edema, no erythema seen. Discharge Data Allergies Allergy/AdvReac Type Severity Reaction Status Date / Time pneumococcal vaccine Allergy Intermediate local Verified 09/02/21 14:55 reaction alendronate sodium AdvReac Intermediate GI upset Verified 09/02/21 14:55 calcium AdvReac Intermediate bloating, Verified 09/02/21 14:55 constipation citalopram AdvReac Intermediate headache Verified 09/02/21 14:55 ezetimibe AdvReac Intermediate elevated Verified 09/02/21 14:55 LFT's Consultations 09/02/21 14:03 ED Decision to Admit Stat 09/02/21 16:42 Consult Gastroenterology Routine Procedures Performed Operation Date: 09/04/21 17:30 Actual Procedures p Colonoscopy Polypectomy - Kannan Burr MD Operation Date: 09/05/21 10:10 Actual Procedures p Endoscopic Ultrasonography Lower - Gokul Chavez MD Ordered Studies 09/02/21 09:30 CT angio chest PE protocol Stat 09/02/21 09:44 US venous doppler LE BI Stat 09/03/21 08:00 US abdomen limited Routine 09/05/21 09:52 US upper EUS PACS images Routine Hospital Course (1) Pulmonary emboli: (2) Early satiety: Plan 86yo F with a PMH of senile osteoporosis, recent thoracic compression fracture, hypothyroidism, dyslipidemia, nonalcoholic liver disease, history of sigmoid diverticulosis, history of TIA, h/o peptic ulcer disease and other medical problems listed below presented 09/02 with SOB, abdominal bloating and loose stools. Over the past 6 weeks, patient endorses abdominal bloating, decreased energy and decreased appetite and was found to have RLL PE in ED. 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 CTA chest confirms small pulmonary emboli involving the right lower lobe pulmonary arteries. No evidence for right heart strain Oxygen saturation 96% on room air Patient was anticoagulated with IV heparin, was started on Coumadin 09/05, PT/INR 2.1 today, discussed with Dr. Christina for recs because of concern of her quick increase in PT/INR to therapeutic level. Patient being discharged on 2 mg daily of Coumadin [starting 09/07/2021] with Lovenox of 100 Mg subcutaneous daily for 3 days starting 09/08/2021 Goal INR 2-3 and f/u w/ coumadin clinic as OP very closely initially and then monthly. Patient and her daughter Radhika aware. Patient to get PT/INR on 09/08/2021 at her scheduled PCP visit. Both patient and her daughter are aware. (2) Abdominal bloating: (3) Early satiety: (4) Weakness: Patient with history of PUD, colon cancer in family Endorsing 6 weeks of early satiety, bloating and smaller but frequent stools. No jovany blood CT abdomen pelvis from 09/01, which was negative for any acute surgical pathology but questionable presence of gastroenteritis and colitis Afebrile, no leukocytosis 09/04 colonoscopy: 2 sessile polyps in the transverse colon and ascending colon 4 to 6 mm in size with 4 clips placed at those 2 sites. Pathology sent,follow- up. 09/05 EGD scope: erythematous stomach mucosa, biopsied. Normal duodenum bulb and 2nd portion, biopsied. F/uPathology report. 09/05 EUS: normal study. Appreciate GI recs. Continue with pantoprazole. (5) TIA (transient ischemic attack): Plan: Continue plavix when able, statin intolerant (6) Chronic hyponatremia: Plan: At baseline DVT Ppx:IV heparin Code status:FULL PCP: Mac Dispo: Admitted med/surg 09/06: Pt's Dtr Radhika updated over the phone, answered all her questions. Discharge instructions were given to patient, and her daughter over the phone. Patient being discharged with following instruction at the point of discharge: Follow-up with your primary care physician within 1 week time. For your abdominal bloating and early satiety, you underwent colonoscopy, EGD scope and EUS. Studies were fairly normal. Biopsies are taken from your colon and stomach and duodenum. You will have to follow-up with the final results of biopsy with your outpatient provider. You were also diagnosed with pulmonary embolism likely secondary to the inactivity preceding the event, you are being discharged on small dose of warfarin 2 mg daily from 09/07/21 and also Lovenox 100 mg subcutaneous daily for 3 days starting 09/08/2021 morning. You will need to get your blood work PT/INR done in 09/08/2021 at your scheduled PCP visit. You will need to closely follow- up with Coumadin clinic for the initial part of your warfarin dose adjustment and then you will need monthly follow-up with Coumadin clinic afterwards. Take your medications as prescribed. Total Time Total Time Spent Total Time Spent (In Minutes): 40 Discharge Plan Discharge Items Patient Disposition: Home - Self-Care Reason For Visit: RLL PE, DECREASED APPETITE, WEIGHT LOSS Discharge Diagnosis: Pulmonary embolism Abdominal bloating Condition on Discharge: Fair Activity: Resume your previous activity Non-emergency contact: Primary Care Provider Call non-emergency contact if: you have any medication questions, your symptoms worsen and your temperature is above 101 Follow-up/Referrals: Kaylee Watts MD [Primary Care Provider] - Diet: Heart Healthy and Low Sodium (2gm) Addtl Attending Provider Instructions: Follow-up with your primary care physician within 1 week time. For your abdominal bloating and early satiety, you underwent colonoscopy, EGD scope and EUS. Studies were fairly normal. Biopsies are taken from your colon and stomach and duodenum. You will have to follow-up with the final results of biopsy with your outpatient provider. You were also diagnosed with pulmonary embolism likely secondary to the inactivity preceding the event, you are being discharged on small dose of warfarin 2 mg daily from 09/07/21 and also Lovenox 100 mg subcutaneous daily for 3 days starting 09/08/2021 morning. You will need to get your blood work PT/INR done in 09/08/2021 at your scheduled PCP visit. You will need to closely follow- up with Coumadin clinic for the initial part of your warfarin dose adjustment and then you will need monthly follow-up with Coumadin clinic afterwards. Take your medications as prescribed. Pending Studies at Discharge: Yes (Biopsy results) Stand-Alone Forms: My [facility], Smoking Cessation Medications and DC Order Prescriptions: New enoxaparin [Lovenox] 100 mg/mL syringe 100 mg subcut DAILY Qty: 3 0RF Rx Instructions: 100mg daily for 3 days starting 09/08/21. warfarin 2 mg Tablet 2 mg PO DAILY@1600 Qty: 30 0RF pantoprazole 40 mg Tablet,Delayed Release (Dr/Ec) 40 mg PO QAM Qty: 30 0RF Continued polyethylene glycol 3350 [Miralax] 17 gram/dose Powder 17 g PO QAM clopidogrel [Plavix] 75 mg Tablet 75 mg PO QAM ascorbic acid (vitamin C) [Vitamin C] 500 mg Tablet 500 mg PO QDL gemfibrozil 600 mg Tablet 600 mg PO BID Rx Instructions: TAKE PRIOR TO MEALS cholecalciferol (vitamin D3) 1,000 unit Tablet 2,000 unit PO QDL cyanocobalamin (vitamin B-12) [Vitamin B-12] 1,000 mcg Tablet 1,000 mcg PO DAILY levothyroxine 88 mcg tablet 88 mcg PO DAILYBB fluticasone propionate 50 mcg/actuation [place],Suspension 2 spray INTRANASAL DAILY PRN (Reason: Congestion) Multivitamin 50 Plus Tablet 1 tab PO DAILY acetaminophen [Tylenol Extra Strength] 500 mg Tablet 1,000 mg PO DIRECTED PRN (Reason: Pain) diphenhydramine-acetaminophen [Tylenol PM Extra Strength] 25-500 mg Tablet 1 tab PO HS Medical Marijuana 1 tab PO DIRECTED PRN (Reason: Pain) Rx Instructions: PER PT "GUMMIES". Discharge Orders: Discharge Order (Routine); Ordered 09/07/21 Ordered By: Joshua Medina Admission Data Admit Date/Time: 09/02/21 14:13 Attending Provider: Joshua Medina Admit Provider: Aden Mcghee Primary Care Provider: Kaylee Watts Other Providers: Aden Mcghee ; Kannan Burr
[2021-09-07 15:53] LABS: Partial Thromboplastin Ratio 2.3
[2021-09-07] MEDS ORDERED: WARFARIN SOD 2 MG TAB PO SCH (16:00)
[2021-09-07 16:32] LABS: Partial Thromboplastin Time 63.5 Seconds (21.0-31.0)
== END 2021-09-07 16:36 | disposition home or self-care (01) | DRG 176 ==
LOC: ED 09:06 → EDINP 14:13 → SUATTDRO 14:13 → 3E 16:17
DX: Z80.0 Family history of malignant neoplasm of digestive organs; R14.0 Abdominal distension (gaseous); E78.5 Hyperlipidemia, unspecified; R63.4 Abnormal weight loss; Z79.02 Long term (current) use of antithrombotics/antiplatelets; Z86.73 Personal history of transient ischemic attack (TIA), and cerebral infarction without residual deficits; Z83.3 Family history of diabetes mellitus; K21.9 Gastro-esophageal reflux disease without esophagitis; I26.99 Other pulmonary embolism without acute cor pulmonale; M81.0 Age-related osteoporosis without current pathological fracture; Z88.7 Allergy status to serum and vaccine; Z79.890 Hormone replacement therapy; R68.81 Early satiety; E03.9 Hypothyroidism, unspecified; E87.1 Hypo-osmolality and hyponatremia

== ENCOUNTER 2022-06-01 11:32 | Observation (INO) ==
[2022-06-01] MEDS ORDERED: SODIUM CHLORIDE 0.9% 1000ML 1,000 ML IV SCH (11:45)
[2022-06-01] MEDS ORDERED: OPTIRAY 320 500ml IV ONE (11:58)
--- NOTE | 2022-06-01 12:01 | CT Scan Report ---
CT OF THE HEAD WITHOUT CONTRAST CLINICAL HISTORY: neuro deficit, acute stroke suspected COMPARISON STUDY: Head CT February 03, 2013. MRI of the brain February 03, 2013. CT DOSE: 614.27 mGy.cm TECHNIQUE: Helical axial images of the head were obtained without IV contrast. Automated exposure con trol was utilized for the study. A dose lowering technique was utilized adhering to the principles o f ALARA. FINDINGS: No acute intracranial hemorrhage, midline shift or mass effect is present. White matter hyp odensity suggests small vessel disease. Atrophy is noted. The ventricular system is unremarkable. The basal cisterns are patent. No extra-axial collections are present. There are no findings to suggest acute dural sinus thrombosis or acute territorial infarct. No significant calvarial abnormalities are present. Mucosal thickening of the left sphenoid sinus. IMPRESSION: No acute intracranial findings. ACT 112: Negative or not required by law. Electronically signed by: Markel Foote M.D. 06/01/2022 12:00 PM
--- NOTE | 2022-06-01 12:05 | CT Scan Report ---
HEAD CTA HISTORY: Difficulty speaking. neuro deficit, acute stroke suspected TECHNIQUE: Multiaxial CT images of the head were performed following the intravenous administration o f contrast to evaluate the major cerebral vessels. Maximum intensity projection images were also obta ined. A dose lowering technique was utilized adhering to the principles of ALARA. COMPARISON: Brain MRI 02/03/2013. FINDINGS: Moderate mucosal thickening and a small fluid level within the left maxillary sinus. The ma stoid air cells are clear. The major dural venous sinuses are patent. Mild calcified plaque within th e bilateral carotid siphons. There is a hypoplastic right vertebral artery which terminates into the right posterior inferior cerebellar artery. This is considered to be a normal variant. There is also a persistent left posterior circulation. Visualized intracranial internal carotid arteries, dis erik vertebral arteries, and basilar artery are widely patent. There is no significant stenosis, occlu otoniel, or aneurysm seen within the bilateral ACAs, MCAs, or litigation manager. IMPRESSION: No significant stenosis, occlusion, or aneurysm within the [place]. ACT 112: Negative or not required by law. Electronically signed by: Chester Jin M.D. 06/01/2022 12:04 PM
--- NOTE | 2022-06-01 12:06 | CT Scan Report ---
CT ANGIOGRAPHY OF THE NECK WITH CONTRAST CLINICAL HISTORY: neuro deficit, acute stroke suspected COMPARISON STUDY: Carotid ultrasound February 03, 2013. Technique: CT angiography of the carotid and vertebral arteries was obtained using [employer] and 3D rec onstruction on an independent workstation. NASCET criteria was utilized. Automated exposure control was utilized for the study. A dose lowering technique was utilized adhering to the principles of ALA RA. CT DOSE: 391.21 mGy.cm Findings: There is no cervical lymphadenopathy. No acute cervical spine fracture is noted. The bilate ral common carotid, cervical internal carotid and vertebral arteries are patent. The left vertebral a rtery is dominant and patent. The right vertebral artery is minimal to moderate congenital basis. The re is no aneurysm within the neck. There is no dissection within the intracranial vessels. IMPRESSION: No stenosis or dissection within the bilateral common carotid, cervical internal carotid or vertebral arteries. ACT 112: Negative or not required by law. Electronically signed by: Markel Foote M.D. 06/01/2022 12:05 PM
[2022-06-01 12:12] LABS: Basophils # (auto) 0.04 K/uL (0-0.2); Basophils % (auto) 0.9 %; Eosinophils # (auto) 0.06 K/uL (0-0.50); Eosinophils % (auto) 1.3 %; Hemoglobin 12.6 g/dl (12.0-16.0); Immature Granulocytes # (auto) 0.02 K/uL (0.01-0.20); Immature Granulocytes % (auto) 0.4 %; Lymphocytes # (auto) 1.35 K/uL (1.2-3.4); Lymphocytes % (auto) 29.2 %; Mean Corpuscular Hemoglobin 30.7 pg (25.0-34.0); Mean Corpuscular Hgb Conc 34.1 g/dL (32.0-36.0); Mean Platelet Volume 9.4 fL (9.4-12.4); Monocytes # (auto) 0.56 K/uL (0.11-0.59); Monocytes % (auto) 12.1 %; Neutrophils # (auto) 2.59 K/uL (1.40-6.50); Neutrophils % (auto) 56.1 %; Platelet Count 268 K/uL (130-400); RDW Coefficient of Variation 13.1 % (11.5-14.5); RDW Standard Deviation 42.9 fL (36.4-46.3); Red Blood Count 4.11 M/uL (4.20-5.40); White Blood Count 4.62 K/ul (4.8-10.8)
[2022-06-01 12:30] LABS: Albumin Level 3.7 gm/dl (3.4-5.0); Bilirubin,Total 0.5 mg/dl (0.2-1.0); Calcium 8.7 mg/dl (8.6-10.3); INR 1.1 (0.9-1.1); Magnesium 1.7 mg/dl (1.7-2.4); Partial Thromboplastin Time 26.8 Seconds (21.0-31.0); Prothrombin Time 12.2 Seconds (9.0-12.0)
[2022-06-01 12:36] LABS: Albumin Globulin Ratio 1.5 (0.9-2); BUN Creatinine Ratio 30.6 (10-20); Creatinine Clr Calc Pharmacy 70.2 ml/min; Est GFR (Non-African American) 88.8 ml/min; Globulin 2.4 gm/dl (2.5-4.0); Total Protein 6.1 gm/dl (6.0-8.3)
--- NOTE | 2022-06-01 12:39 | XRay Report ---
XR chest 1V portable HISTORY: neuro deficit, acute stroke suspected COMPARISON: Chest 09/19/2021. FINDINGS: There are low lung volumes. No pneumothorax. No pleural effusions. The cardiac silhouette r emains mildly enlarged. There are few bibasilar linear densities suggestive of subsegmental atelectas is or scarring. Stable scarlike density again noted within the lingula. No new focal lung consolidati ons to suggest pneumonia. No evidence for pulmonary edema. IMPRESSION: No significant change compared to the prior study. No acute process. ACT 112: Negative or not required by law. Electronically signed by: Chester Jin M.D. 06/01/2022 12:38 PM
[2022-06-01 12:40] LABS: Troponin I High Sensitivity 3.5 pg/ml (0-14)
[2022-06-01] MEDS ORDERED: LABETALOL HCL IV 5 MG/ML 20ML IV STA (13:17)
--- NOTE | 2022-06-01 14:29 | History & Physical Report ---
Date of Service June 01, 2022 Assessment & Plan (1) TIA (transient ischemic attack): Plan: Admit to telemetry Patient presenting from home with reports of difficulty speaking. Symptoms now resolved. Stroke alert called in ED, patient not deemed to be a tPA candidate. History of TIA ~ 2019, on Plavix. No aspirin currently. Patient is statin intolerant. Head CT, head and neck CTAs unremarkable Brain MRI Echo Continue Plavix, add ASA 81 mg. Continue gemfibrozil. Telemetry to monitor for arrhythmias Neuro consult (2) Chronic hyponatremia: Plan: Na+ 130, at baseline Monitor BMP (3) Hypothyroidism: Plan: Continue levothyroxine TSH 2.18 on 03/13/2022 (4) Hyperlipidemia: Plan: Continue gemfibrozil (5) GERD (gastroesophageal reflux disease): Plan: Continue PPI DVT PROPHYLAXIS SCDs for now until brain MRI results Patient seen in collaboration with Dr. Becerra. I spent a total of 75 minutes coordinating, documenting, and providing care for this patient excluding time spent in the performance of separately billed services. This included personally reviewing all current laboratories and imaging studies, medication reconciliation, outpatient chart review, and discussion with specialists. History of Present Illness Chief Complaint: Difficulty speaking Primary Care Provider: Apoorva Wilhelm MD 86-year-old female with PMH hypothyroidism, dyslipidemia, statin intolerance, history of pulmonary embolism s/p 6 months of Coumadin therapy, history of TIA on Plavix, GERD, and other problems listed below who presents to the ED for evaluation of difficulty speaking. History obtained from patient and daughter who is the bedside and review of outpatient PCP records. Patient reports she woke up this morning feeling in her usual state of health. She went for her usu al walk with her daughter. Patient reports she started to feel lightheaded and bent over pressing her hands on her knees. Daughter reports that she was asking her if she was okay and she would not respond. Patient was able to walk home. Upon returning home, patient was saying "ok" to all questions asked by her daughter. Patient then began saying words however not in the correct order or context. This was occurring ~ 11:15-11:30. Patient was then brought to the ED for further evaluation. Stroke alert was called. Patient's symptoms subsequently resolved and she was not felt to be a tPA candidate. Patient denies any associated facial droop, unilateral weakness, numbness, tingling. Patient reports she otherwise has been feeling well recently. Denies chest pain and shortness of breath. No abdominal pain, nausea, vomiting, diarrhea. Denies fevers and chills. No urinary symptoms. In the ED, head CT, head and neck CTAs are unremarkable for acute findings. Labs show chronic hyponatremia with Na+ 130, otherwise unremarkable. Allergies Allergy/AdvReac Type Severity Reaction Status Date / Time pneumococcal vaccine Allergy Intermediate local Verified 09/02/21 14:55 reaction alendronate sodium AdvReac Intermediate GI upset Verified 09/02/21 14:55 calcium AdvReac Intermediate bloating, Verified 09/02/21 14:55 constipation citalopram AdvReac Intermediate headache Verified 09/02/21 14:55 ezetimibe AdvReac Intermediate elevated Verified 09/02/21 14:55 LFT's Home Medications Medication Instructions Recorded Confirmed Type ascorbic acid (vitamin C) 500 mg 500 mg PO QDL 07/05/18 06/01/22 History tablet (Vitamin C) cholecalciferol (vitamin D3) 25 2,000 unit PO QDL 07/05/18 06/01/22 History mcg (1,000 unit) tablet clopidogrel 75 mg tablet (Plavix) 75 mg PO QAM 07/05/18 06/01/22 History gemfibrozil 600 mg tablet 600 mg PO BID 07/05/18 06/01/22 History polyethylene glycol 3350 17 17 g PO QAM 07/05/18 06/01/22 History gram/dose oral powder (Miralax) cyanocobalamin (vitamin B-12) 1,000 mcg PO DAILY 07/24/21 06/01/22 History 1,000 mcg tablet (Vitamin B-12) fluticasone propionate 50 2 spray intranasal DAILY PRN 07/24/21 06/01/22 History mcg/actuation nasal Congestion spray,suspension levothyroxine 88 mcg tablet 88 mcg PO DAILYBB 07/24/21 06/01/22 History zhosuxruidqy-dgvgltao-osqics 1 tab PO DAILY 07/24/21 06/01/22 History tablet (Multivitamin 50 Plus tablet) Medical Marijuana 1 tab PO DIRECTED PRN Pain 09/01/21 06/01/22 History aspirin 81 mg tablet,delayed 81 mg PO QAM #30 tabs 06/02/22 Rx release Past Med/Surg History Medical History Anxiety GERD (gastroesophageal reflux disease) History of colon polyps History of gastric ulcer History of pulmonary embolism S/p 6 months of Coumadin therapy Hyperlipidemia Hypothyroidism On anticoagulant therapy plavix daily Transient ischemic attack (TIA) 2014--no deficits--reason for plavix Surgical History History of bilateral tubal ligation History of cataract surgery RIGHT CATARACT on 07/27/18: was given 2mg of IV versed History of colonoscopy History of dilatation and curettage History of esophagogastroduodenoscopy (EGD) History of left breast biopsy benign History of repair of right rotator cuff Family History Mother Family history of diabetes mellitus Daughter Family hx of colon cancer Other No family history of adverse response to anesthesia Social History Smoking Status: Never smoker Second Hand Exposure: No; Do You Dip or Chew Tobacco: No; Hx Alcohol Use: No Hx Substance Use: No Preferred Language: Bel[place]ian Communication Ability: Effective Pilot Teacher Required: No Beliefs That Will Affect Care: None marital status: Current Living Situation: Alone Current Living Situation Comment: daughter lives near by Feels Safe at Home: Yes Assistive Devices: None and Glasses Review of Systems Review of Systems: ROS per HPI, all other systems reviewed and negative Physical Exam Constitutional: WD/WN, vitals as above Eyes: PERRL, conjunctivae normal, anicteric sclerae ENMT: external ear and nose normal, oropharynx normal Respiratory: normal respiratory effort, lungs clear to auscultation Cardiovascular: Rate/Rhythm: regular rate and regular rhythm Vessels: normal peripheral pulses Extremities: no edema Gastrointestinal (Abdomen): normal bowel sounds, soft, nontender, no hepatosplenomegaly Musculoskeletal: no cyanosis or clubbing, extremities motor strength 5/5 Skin: no rashes, warm and dry Neurologic: PERRL, EOMI, accommodation nl, no face palsy, no dysarthria moves all extremities and awake; no focal motor deficits Motor/Sensory: no pronator drift Cranial Nerves: able to rotate head bilaterally Coordination: normal nxlvbx-rp-[id number] test and normal eabu-ir-sylq test Psychiatric: A+Ox3, euthymic affect Results & Data Results & Data Vital Signs (Past 12 Hours) Vital Signs Temp Pulse Pulse Resp BP BP Pulse Ox 06/01/22 13:31 165/91 H 06/01/22 13:31 75 17 95 06/01/22 13:30 72 22 94 06/01/22 13:00 76 17 94 06/01/22 13:00 140/108 H 06/01/22 12:57 77 13 94 06/01/22 12:57 155/110 H 06/01/22 13:10 147/108 H 06/01/22 12:50 78 14 150/90 H 95 06/01/22 12:52 81 06/01/22 12:07 81 20 167/83 H 94 06/01/22 11:38 36.3 C L 86 20 147/90 H 95 O2 Del Method 06/01/22 13:31 06/01/22 13:31 06/01/22 13:30 06/01/22 13:00 06/01/22 13:00 06/01/22 12:57 06/01/22 12:57 06/01/22 13:10 06/01/22 12:50 06/01/22 12:52 06/01/22 12:07 Room Air 06/01/22 11:38 Room Air Laboratory Results Short CBC 06/01/22 Range/Units 12:01 WBC 4.62 L (4.8-10.8) K/ul Hgb 12.6 (12.0-16.0) g/dl Hct 37.0 (37.0-47.0) % Plt Count 268 (130-400) K/uL BMP 06/01/22 12:01 Sodium 130 L Potassium 4.0 Chloride 101 Carbon Dioxide 23 BUN 15 Creatinine 0.49 L Glucose 81 Calcium 8.7 Liver Function 06/01/22 Range/Units 12:01 Total Bilirubin 0.5 (0.2-1.0) mg/dl AST 30 (13-39) U/L ALT 19 (7-52) U/L Alkaline Phosphatase 49 (34-104) U/L Albumin 3.7 (3.4-5.0) gm/dl Diagnostic Findings Chest X-Ray 06/01/22 11:42 XR chest 1V portable HISTORY: neuro deficit, acute stroke suspected COMPARISON: Chest 09/19/2021. FINDINGS: There are low lung volumes. No pneumothorax. No pleural effusions. The cardiac silhouette remains mildly enlarged. There are few bibasilar linear densities suggestive of subsegmental atelectasis or scarring. Stable scarlike density again noted within the lingula. No new focal lung consolidations to suggest pneumonia. No evidence for pulmonary edema. IMPRESSION: No significant change compared to the prior study. No acute process. ACT 112: Negative or not required by law. Electronically signed by: Chester Jin M.D. 06/01/2022 12:[address] 06/01/22 11:42 CT OF THE HEAD WITHOUT CONTRAST CLINICAL HISTORY: neuro deficit, acute stroke suspected COMPARISON STUDY: Head CT February 03, 2013. MRI of the brain February 03, 2013. CT DOSE: 614.27 mGy.cm TECHNIQUE: Helical axial images of the head were obtained without IV contrast. Automated exposure control was utilized for the study. A dose lowering technique was utilized adhering to the principles of ALARA. FINDINGS: No acute intracranial hemorrhage, midline shift or mass effect is present. White matter hypodensity suggests small vessel disease. Atrophy is noted. The ventricular system is unremarkable. The basal cisterns are patent. No extra-axial collections are present. There are no findings to suggest acute dural sinus thrombosis or acute territorial infarct. No significant calvarial abnormalities are present. Mucosal thickening of the left sphenoid sinus. IMPRESSION: No acute intracranial findings. ACT 112: Negative or not required by law. Electronically signed by: Markel Foote M.D. 06/01/2022 12:00 PM Head CTA 06/01/22 11:42 HEAD CTA HISTORY: Difficulty speaking. neuro deficit, acute stroke suspected TECHNIQUE: Multiaxial CT images of the head were performed following the intravenous administration of contrast to evaluate the major cerebral vessels. Maximum intensity projection images were also obtained. A dose lowering technique was utilized adhering to the principles of ALARA. COMPARISON: Brain MRI 02/03/2013. FINDINGS: Moderate mucosal thickening and a small fluid level within the left maxillary sinus. The mastoid air cells are clear. The major dural venous sinuses are patent. Mild calcified plaque within the bilateral carotid siphons. There is a hypoplastic right vertebral artery which terminates into the right posterior inferior cerebellar artery. This is considered to be a normal variant. There is also a persistent left posterior circulation. Visualized intracranial internal carotid arteries, distal vertebral arteries, and basilar artery are widely patent. There is no significant stenosis, occlusion, or aneurysm seen within the bilateral ACAs, MCAs, or family court counsellor. IMPRESSION: No significant stenosis, occlusion, or aneurysm within the [place] of [place]. ACT 112: Negative or not required by law. Electronically signed by: Chester Jin M.D. 06/01/2022 12:04 PM Neck CTA 06/01/22 11:42 CT ANGIOGRAPHY OF THE NECK WITH CONTRAST CLINICAL HISTORY: neuro deficit, acute stroke suspected COMPARISON STUDY: Carotid ultrasound February 03, 2013. Technique: CT angiography of the carotid and vertebral arteries was obtained using [employer] and 3D reconstruction on an independent workstation. NASCET criteria was utilized. Automated exposure control was utilized for the study. A dose lowering technique was utilized adhering to the principles of ALARA. CT DOSE: 391.21 mGy.cm Findings: There is no cervical lymphadenopathy. No acute cervical spine fracture is noted. The bilateral common carotid, cervical internal carotid and vertebral arteries are patent. The left vertebral artery is dominant and patent. The right vertebral artery is minimal to moderate congenital basis. There is no aneurysm within the neck. There is no dissection within the intracranial vessels. IMPRESSION: No stenosis or dissection within the bilateral common carotid, cer vical internal carotid or vertebral arteries. ACT 112: Negative or not required by law. Electronically signed by: Markel Foote M.D. 06/01/2022 12:05 PM Code Status & VTE Plan VTE Prophylaxis Plan VTE Prophylaxis will be ordered: Yes Supervising Physician Co-Signing Physician Notes Pt was seen and examined. Agreed with Barbra HARRISON exam, assessment and plan. 86-year-old female with PMH hypothyroidism, dyslipidemia, statin intolerance, history of pulmonary embolism s/p 6 months of Coumadin therapy, history of TIA on Plavix, GERD presented to the ED for evaluation of difficulty speaking. History obtained from patient, daughter and ER document. Daughter said that this morning pt went for walk with her daughter. Daughter said during the walk pt became lightheaded. daughter tried to talk to her and pt was not able to answer. She was able to walk back home. Daughter noted when she got home, pt was only answering ok with all the questions daughter asked; then she became incoherent where her answers were not making any sense. She was brought to the ER for eval. Stroke alert was called, but no TPA was administered because by the time she got to the ER her symptoms improved. Denies any chest pain, palpitation, dizziness and SOB. CT head on admission showed no acute intracranial finding. CTA head and neck are unremarkable for acute findings. Labs show chronic hyponatremia with Na+ 130. Will admit in telemetry. Will get an MRI of head. Check Lipid panel. Will consult neurology. Will get a resting echo. Will add aspirin 81mg daily. PT/OT/speech eval. Will continue monitor closely in telemetry. MD Mariam
--- NOTE | 2022-06-01 15:47 | Electrocardiogram Report ---
Test Reason : Blood Pressure : / mmHG Vent. Rate : 077 BPM Atrial Rate : 077 BPM P-R Int : 226 ms QRS Dur : 090 ms QT Int : 378 ms P-R-T Axes : 048 -11 000 degrees QTc Int : 427 ms Sinus rhythm with 1st degree A-V block Possible Left atrial enlargement Left ventricular hypertrophy Poor R wave progression, consider anterior [place] vs. lead placement vs. LVH Abnormal ECG When compared with ECG of 19-SEP-2021 10:43, Questionable change in QRS axis Confirmed by aMrcio Johnson ([id number]) on 06/01/2022 3:46:25 PM Referred By: REFERRED SELF Confirmed By:Marcio Johnson
[2022-06-01] MEDS ORDERED: PHARMACIST DISCHARGE MED REC CONSULT PRN (15:48)
[2022-06-01] MEDS ORDERED: ACETAMINOPHEN 325 MG TAB PO PRN (15:48)
--- NOTE | 2022-06-01 16:44 | Magnetic Resonance Report ---
Brain MRI WITHOUT CONTRAST HISTORY: Lightheadedness. Speech difficulty. TECHNIQUE: Multiplanar multisequence MRI of the brain was performed without the use of contrast. COMPARISON STUDY: Head CT 06/01/2022. Brain MRI 02/03/2013. FINDINGS: There is no mass, hematoma, midline shift, or acute infarct. The mastoid air cells are taylor r. The ventricles and sulci demonstrate mild age-related involutional changes. Scattered foci of T2 h yperintensity seen within the periventricular and subcortical white matter are nonspecific but sugges tive of advanced microvascular ischemic changes. The major vascular flow voids at the skull base are well-maintained. Prior bilateral replacement. Moderate mucosal thickening within the left sphenoid si nus. IMPRESSION: No acute intracranial abnormality. Scattered foci of T2 hyperintensity seen within the periventricula r and subcortical white matter are nonspecific but favor advanced microvascular ischemic change. ACT 112: Negative or not required by law. Electronically signed by: Chester Jin M.D. 06/01/2022 4:42 PM
[2022-06-01] MEDS: ASPIRIN 81 MG ECTAB PO SCH (17:07)
[2022-06-01 19:20] LABS: Appearance Urine Clear (Clear); Bacteria Urine Automated Negative (Negative); Bilirubin Urine Negative (Negative); Blood Urine Negative (Negative); Cast Urine Automated 0 /lpf (0-5); Color Urine Yellow; Glucose Urine UA Negative (Negative); Ketones Urine Negative (Negative); Leukocyte Esterase Urine 1+ (Negative); Nitrite Urine Negative (Negative); Protein Urine Negative (Negative); RBC Urine Automated 0-4 /hpf (0-4); Specific Gravity Urine 1.038 (1.000-1.030); Urobilinogen Urine Negative (Negative); pH Urine 6.5 (4.5-7.5)
[2022-06-01] MEDS: gemfibroziL 600 MG TAB PO SCH (20:38)
[2022-06-02 06:16] LABS: Basophils # (auto) 0.03 K/uL (0-0.2); Basophils % (auto) 0.5 %; Eosinophils # (auto) 0.09 K/uL (0-0.50); Eosinophils % (auto) 1.6 %; Hematocrit (blood only) 39.2 % (37.0-47.0); Hemoglobin 13.8 g/dl (12.0-16.0); Immature Granulocytes # (auto) 0.03 K/uL (0.01-0.20); Immature Granulocytes % (auto) 0.5 %; Lymphocytes # (auto) 2.04 K/uL (1.2-3.4); Lymphocytes % (auto) 35.8 %; Mean Corpuscular Hemoglobin 31.1 pg (25.0-34.0); Mean Corpuscular Hgb Conc 35.2 g/dL (32.0-36.0); Mean Corpuscular Volume 88.3 fL (80.0-100.0); Mean Platelet Volume 9.5 fL (9.4-12.4); Monocytes # (auto) 0.52 K/uL (0.11-0.59); Monocytes % (auto) 9.1 %; Neutrophils # (auto) 2.99 K/uL (1.40-6.50); Neutrophils % (auto) 52.5 %; Platelet Count 276 K/uL (130-400); RDW Coefficient of Variation 12.8 % (11.5-14.5); RDW Standard Deviation 41.7 fL (36.4-46.3); Red Blood Count 4.44 M/uL (4.20-5.40)
[2022-06-02 06:26] LABS: BUN Creatinine Ratio 34.6 (10-20); Calcium 9.3 mg/dl (8.6-10.3); Chol HDL Ratio 3.2 (0-5); Creatinine Clr Calc Pharmacy 65.1 ml/min; Est GFR (Non-African American) 87.1 ml/min; Potassium 4.4 mmol/L (3.5-5.1)
[2022-06-02] MEDS ORDERED: LEVOTHYROXINE SODIUM 88 MCG TABLET PO SCH (06:30)
[2022-06-02] MEDS ORDERED: PERFLUTREN LIPID MICROSPHERE (DEFINITY) IV ONE (07:14)
[2022-06-02 08:00] LABS: Estimated Average Glucose 114 mg/dl; Hemoglobin A1C 5.6 % (4.5-5.6)
[2022-06-02] MEDS: gemfibroziL 600 MG TAB PO SCH (08:36)
[2022-06-02] MEDS: ASPIRIN 81 MG ECTAB PO SCH (08:38)
--- NOTE | 2022-06-02 08:51 | Hospitalist Progress Note ---
Date of Service June 02, 2022 Assessment & Plan (1) TIA (transient ischemic attack): Plan: Admit to telemetry Patient presenting from home with reports of difficulty speaking. Symptoms now resolved. Stroke alert called in ED, patient not deemed to be a tPA candidate. History of TIA ~ 2019, on Plavix. No aspirin currently. Patient is statin intolerant. Head CT, head and neck CTAs unremarkable Brain MRI Echo Continue Plavix, add ASA 81 mg. Continue gemfibrozil. Telemetry to monitor for arrhythmias Neuro consult (2) Chronic hyponatremia: Plan: Na+ 130, at baseline Monitor BMP (3) Hypothyroidism: Plan: Continue levothyroxine TSH 2.18 on 03/13/2022 (4) Hyperlipidemia: Plan: Continue gemfibrozil (5) GERD (gastroesophageal reflux disease): Plan: Continue PPI DVT PROPHYLAXIS SCDs for now until brain MRI results Patient seen in collaboration with Dr. Becerra. I spent a total of 75 minutes coordinating, documenting, and providing care for this patient excluding time spent in the performance of separately billed services. This included personally reviewing all current laboratories and imaging studies, medication reconciliation, outpatient chart review, and discussion with specialists. Admission and Anticipated Discharge Date Admission Date: June 01, 2022 Results & Data Results & Data Vital Signs (Past 12 Hours) Vital Signs Temp Pulse Pulse Resp BP Pulse Ox O2 Del Method 06/02/22 07:00 69 06/02/22 07:46 36.6 C 64 20 143/88 H 93 Room Air 06/02/22 02:46 36.6 C 69 18 146/85 H 96 Room Air 06/02/22 00:53 76 06/01/22 22:15 36.5 C 77 18 116/72 95 Room Air Laboratory Results Short CBC 06/01/22 06/02/22 Range/Units 12:01 05:25 WBC 4.62 L 5.70 (4.8-10.8) K/ul Hgb 12.6 13.8 (12.0-16.0) g/dl Hct 37.0 39.2 (37.0-47.0) % Plt Count 268 276 (130-400) K/uL BMP 06/01/22 06/02/22 12:01 05:25 Sodium 130 L 131 L Potassium 4.0 4.4 Chloride 101 99 Carbon Dioxide 23 24 BUN 15 18 Creatinine 0.49 L 0.52 L Glucose 81 95 Calcium 8.7 9.3 Liver Function 06/01/22 Range/Units 12:01 Total Bilirubin 0.5 (0.2-1.0) mg/dl AST 30 (13-39) U/L ALT 19 (7-52) U/L Alkaline Phosphatase 49 (34-104) U/L Albumin 3.7 (3.4-5.0) gm/dl Urine 06/01/22 Range/Units 19:00 Urine Color Yellow Urine Appearance Clear (Clear) Urine pH 6.5 (4.5-7.5) Ur Specific [place] 1.038 H (1.000-1.030) Urine Protein Negative (Negative) Urine Glucose (UA) Negative (Negative) Medications Administered Current Inpatient Medications Acetaminophen (Acetaminophen 325 Mg Tab) 650 mg PO Q4H PRN PRN Reason: Pain or Fever Stop: 07/01/22 15:47 Last Admin: 06/01/22 20:38 Dose: 650 mg Aspirin (Aspirin 81 Mg Ectab) 81 mg PO [facility] Stop: 07/01/22 15:47 Last Admin: 06/02/22 08:38 Dose: 81 mg Clopidogrel Bisulfate (Clopidogrel Bisulfate 75 Mg Tab) 75 mg PO [facility] Stop: 07/02/22 08:59 Last Admin: 06/02/22 08:37 Dose: 75 mg Gemfibrozil (Gemfibrozil 600 Mg Tab) 600 mg PO BID [facility] Stop: 07/01/22 20:59 Last Admin: 06/02/22 08:36 Dose: 600 mg Heparin Sodium (Porcine) (Heparin Sod 5,000 Unit/0.5 Ml Vial) 5,000 units SQ Q12 [facility] Stop: 07/02/22 08:59 Last Admin: 06/02/22 08:38 Dose: 5,000 units Levothyroxine Sodium (Levothyroxine Sodium 88 Mcg Tablet) 88 mcg PO DAILYBB [facility] Stop: 07/02/22 06:29 Last Admin: 06/02/22 05:56 Dose: 88 mcg Miscellaneous Information (Pharmacist Discharge Med Rec Consult) 1 each N/A UD PRN PRN Reason: Consult Stop: 07/01/22 15:47 Pantoprazole Sodium (Pantoprazole 40 Mg Tab) [facility] [place] Stop: 07/02/22 08:59 Last Admin: 06/02/22 08:37 Dose: 40 mg Polyethylene Glycol (Polyethylene (Miralax) 17 Gm Pack) 17 gm PO [facility] Stop: 07/02/22 08:59 Last Admin: 06/02/22 08:39 Dose: 17 gm
[2022-06-02] MEDS ORDERED: POLYETHYLENE (MIRALAX) 17 GM PACK PO SCH (09:00)
[2022-06-02] MEDS ORDERED: CLOPIDOGREL BISULFATE 75 MG TAB PO SCH (09:00)
[2022-06-02] MEDS ORDERED: HEPARIN SOD 5,000 UNIT/0.5 ML VIAL SQ SCH (09:00)
[2022-06-02] MEDS ORDERED: PANTOprazole 40 MG TAB PO SCH (09:00)
--- NOTE | 2022-06-02 10:42 | Emergency Department Note ---
Impression & Plan Symptoms of cerebrovascular accident (CVA) ED Provider Note CHIEF COMPLAINT: Dizzy, stroke symptoms HISTORY OF PRESENT ILLNESS: This 86-year-old female patient with past medical history of GERD, hyperlipidemia, hypothyroidism, PE and chronic hyponatremia presents to the emergency department with her daughter who states they were on a walk together at 11 am today when she bent over, stating she was dizzy. They sat down and made there was home. However after the patient was somewhat conf used. [place] were in [place] neighborhood. Her words did not quite make sense. Patient states now that she is feeling somewhat better. REVIEW OF SYSTEMS: A review of systems was performed with positives and pertinent negatives listed in the history of present illness. 10 systems were reviewed and are otherwise negative. ALLERGIES: see below MEDICATIONS: see below PMH: see below SOCIAL HISTORY: see below DDx: Infection, dehydration, metabolic abnormality, hypo/hyperglycemia, electrolyte disturbance, anemia, hypoxia, cardiac sources, intracerebral event, toxicologic, neurologic, as well as other pathologies. PHYSICAL EXAM: Vital signs reviewed. General: Well-appearing 86 yo female, in no significant distress. HEENT: No scleral icterus, PERRLA, neck supple. Atraumatic. Cardiovascular: Regular rate and rhythm, no extra sounds. Pulmonary: Clear to auscultation bilaterally, normal work of breathing. Abdomen: Soft, nontender, nondistended, positive bowel sounds. Musculoskeletal: Atraumatic, no peripheral edema. Neurologic: Patient awake alert and answers to person, place but year is incorrect x2. Cranial nerves II through XII are grossly intact, negative pronator drift, equal engagement specialist strength bilaterally. Intact [id number]. Speech is clear. Skin: Warm, dry, no rash EMERGENCY DEPARTMENT COURSE/MDM: Stroke alert was paged from triage and the patient was taken directly to CAT scan. IV access was obtained and laboratory w ork was drawn. External medical records were reviewed. Patient is not anticoagulated but is on Plavix and aspirin. Patient's physical exam is fairly reassuring with the exception of disorientation to year. She is moving all extremities equally and cranial nerves are intact. The telestroke attending was contacted and examined the patient, TNKase was felt not to be in the patient's best interest at this time. CT imaging of the head reveals negative head CT, no significant stenosis or occlusion on CT angiograms. Patient's blood pressure was noted to be elevated and she was medicated with 5 mg of IV labetalol. EKG reveals a sinus rhythm with a first-degree AV block. Patient improved during her stay in the emergency department. Case was discussed with the hospitalist service for admission and further management. Patient and daughter expressed understanding of the plan and agreed. MONITORING: An order for cardiac monitoring was placed and the patient is noted to be in a SR with first degree AV block at 69 beats per minute. RADIOLOGY: Chest x-ray to my interpretation reveals no evidence of acute is defer to radiology's overread. Head CT to my review reveals no evidence of acute intracranial abnormality, otherwise defer to radiology. CT angio of the head and neck per radiology reveals no significant stenosis or occlusion, see final read below. EKG: To my interpretation reveals a sinus rhythm with a first-degree AV block at 77 bpm, LVH with L atrial enlargement. Poor R wave progression, QTc 427. no PVC, no PAC. DISPOSITION: Admit Thrombolytics MDM Did the patient receive IV thrombolytics?: No Past Med/Surg History Medical History Anxiety GERD (gastroesophageal reflux disease) History of colon polyps History of gastric ulcer History of pulmonary embolism S/p 6 months of Coumadin therapy Hyperlipidemia Hypothyroidism On anticoagulant therapy plavix daily Transient ischemic attack (TIA) 2014--no deficits--reason for plavix Surgical History History of bilateral tubal ligation History of cataract surgery RIGHT CATARACT on 07/27/18: was given 2mg of IV versed History of colonoscopy History of dilatation and curettage History of esophagogastroduodenoscopy (EGD) History of left breast biopsy benign History of repair of right rotator cuff Family History Mother Family history of diabetes mellitus Daughter Family hx of colon cancer Other No family history of adverse response to anesthesia Social History Smoking Status: Never smoker Second Hand Exposure: No; Do You Dip or Chew Tobacco: No; Hx Alcohol Use: No Hx Substance Use: No Preferred Language: Hungarian Communication Ability: Effective Web Site Project Manager Required: No Beliefs That Will Affect Care: None marital status: Current Living Situation: Alone Current Living Situation Comment: daughter lives near by Feels Safe at Home: Yes Assistive Devices: None and Glasses Allergies Allergies Allergy/AdvReac Type Severity Reaction Status Date / Time pneumococcal vaccine Allergy Intermediate local Verified 09/02/21 14:55 reaction alendronate sodium AdvReac Intermediate GI upset Verified 09/02/21 14:55 calcium AdvReac Intermediate bloating, Verified 09/02/21 14:55 constipation citalopram AdvReac Intermediate headache Verified 09/02/21 14:55 ezetimibe AdvReac Intermediate elevated Verified 09/02/21 14:55 LFT's Home Meds Home Medications Medication Instructions Recorded Confirmed ascorbic acid (vitamin C) 500 mg 500 mg PO QDL 07/05/18 06/01/22 tablet (Vitamin C) cholecalciferol (vitamin D3) 25 2,000 unit PO QDL 07/05/18 06/01/22 mcg (1,000 unit) tablet clopidogrel 75 mg tablet (Plavix) 75 mg PO QAM 07/05/18 06/01/22 gemfibrozil 600 mg tablet 600 mg PO BID 07/05/18 06/01/22 polyethylene glycol 3350 17 17 g PO QAM 07/05/18 06/01/22 gram/dose oral powder (Miralax) cyanocobalamin (vitamin B-12) 1,000 mcg PO DAILY 07/24/21 06/01/22 1,000 mcg tablet (Vitamin B-12) fluticasone propionate 50 2 spray intranasal DAILY PRN 07/24/21 06/01/22 mcg/actuation nasal Congestion spray,suspension levothyroxine 88 mcg tablet 88 mcg PO DAILYBB 07/24/21 06/01/22 demqchkckirc-cxxlkkoq-ntolpu 1 tab PO DAILY 07/24/21 06/01/22 tablet (Multivitamin 50 Plus tablet) Medical Marijuana 1 tab PO DIRECTED PRN Pain 09/01/21 06/01/22 Previous Rx's Medication Instructions Recorded aspirin 81 mg tablet,delayed 81 mg PO QAM #30 tabs 06/02/22 release Results & Data (ED) Vital Signs Vital Signs - 24 hr 06/01/22 11:38 06/01/22 12:07 06/01/22 12:52 Temperature 36.3 C L Temperature Source Temporal Artery Scan Pulse Rate 86 81 Pulse Rate [Apical] 81 Pulse Rate from SpO2 Sensor Respiratory Rate 20 20 Respiratory Effort / Characteristics Non-Labored Spontaneous Non-Labored Spontaneous Respiratory Depth Normal Normal Blood Pressure 147/90 H Blood Pressure [Left Arm] 167/83 H Blood Pressure Mean 109 Blood Pressure Mean [Left Arm] 111 Pulse Oximetry 95 94 Oxygen Delivery Method Room Air Room Air Sepsis New/Unexplained Change in Mental Status N/A Sepsis Action Taken by Nursing No Action Required 06/01/22 12:50 06/01/22 12:57 06/01/22 12:57 Temperature Temperature Source Pulse Rate 78 77 Pulse Rate [Apical] Pulse Rate from SpO2 Sensor 79 75 Respiratory Rate 14 13 Respiratory Effort / Characteristics Respiratory Depth Blood Pressure 150/90 H 155/110 H Blood Pressure [Left Arm] Blood Pressure Mean 110 125 Blood Pressure Mean [Left Arm] Pulse Oximetry 95 94 Oxygen Delivery Method Sepsis New/Unexplained Change in Mental Status Sepsis Action Taken by Nursing 06/01/22 13:00 06/01/22 13:00 Temperature Temperature Source Pulse Rate 76 Pulse Rate [Apical] Pulse Rate from SpO2 Sensor 77 Respiratory Rate 17 Respiratory Effort / Characteristics Respiratory Depth Blood Pressure 140/108 H Blood Pressure [Left Arm] Blood Pressure Mean 118 Blood Pressure Mean [Left Arm] Pulse Oximetry 94 Oxygen Delivery Method Sepsis New/Unexplained Change in Mental Status Sepsis Action Taken by [facility] Medications Current Medication List: was personally reviewed by me Laboratory Data Attestation: I reviewed the patient's lab results. 06/02/22 05:25 06/02/22 05:25 Lab Results 06/01/22 06/01/22 06/01/22 Range/Units 11:57 12:01 12:01 WBC 4.62 L (4.8-10.8) K/ul RBC 4.11 L (4.20-5.40) M/uL Hgb 12.6 (12.0-16.0) g/dl Hct 37.0 (37.0-47.0) % MCV 90.0 (80.0-100.0) fL MCH 30.7 (25.0-34.0) pg MCHC 34.1 (32.0-36.0) g/dL RDW Std Deviation 42.9 (36.4-46.3) fL RDW Coeff of Jeanie 13.1 (11.5-14.5) % Plt Count 268 (130-400) K/uL MPV 9.4 (9.4-12.4) fL Immature Gran % (Auto) 0.4 % Neut % (Auto) 56.1 % Lymph % (Auto) 29.2 % [place] % (Auto) 12.1 % Eos % (Auto) 1.3 % Baso % (Auto) 0.9 % Neut # (Auto) 2.59 (1.40-6.50) K/uL Lymph # (Auto) 1.35 (1.2-3.4) K/uL [place] # (Auto) 0.56 (0.11-0.59) K/uL Eos # (Auto) 0.06 (0-0.50) K/uL Baso # (Auto) 0.04 (0-0.2) K/uL Immature Gran # (Auto) 0.02 (0.01-0.20) K/uL PT 12.2 H (9.0-12.0) Seconds INR 1.1 (0.9-1.1) APTT 26.8 (21.0-31.0) Seconds PTT Ratio 1.0 Sodium (136-145) mmol/L Potassium (3.5-5.1) mmol/L Chloride (98-107) mmol/L Carbon Dioxide (21-32) mmol/L Anion Gap (3-11) BUN (6-23) mg/dl Creatinine (0.6-1.2) mg/dl Est Cr Clr Drug Dosing ml/min Est GFR ( Amer) ml/min Est GFR (Non-Af Amer) ml/min BUN/Creatinine Ratio (10-20) Glucose (70-99(Fasting)) mg/dl POC Glucose 102 H (70-99) mg/dl Calcium (8.6-10.3) mg/dl Magnesium (1.7-2.4) mg/dl Total Bilirubin (0.2-1.0) mg/dl AST (13-39) U/L ALT (7-52) U/L Alkaline Phosphatase (34-104) U/L Troponin I High Sens (0-14) pg/ml Total Protein (6.0-8.3) gm/dl Albumin (3.4-5.0) gm/dl Globulin (2.5-4.0) gm/dl Albumin/Globulin Ratio (0.9-2) SARS-CoV-2, RNA, NAAT (NEGATIVE) 06/01/22 06/01/22 Range/Units 12:01 12:02 WBC (4.8-10.8) K/ul RBC (4.20-5.40) M/uL Hgb (12.0-16.0) g/dl Hct (37.0-47.0) % MCV (80.0-100.0) fL MCH (25.0-34.0) pg MCHC (32.0-36.0) g/dL RDW Std Deviation (36.4-46.3) fL RDW Coeff of Jeanie (11.5-14.5) % Plt Count (130-400) K/uL MPV (9.4-12.4) fL Immature Gran % (Auto) % Neut % (Auto) % Lymph % (Auto) % [place] % (Auto) % Eos % (Auto) % Baso % (Auto) % Neut # (Auto) (1.40-6.50) K/uL Lymph # (Auto) (1.2-3.4) K/uL [place] # (Auto) (0.11-0.59) K/uL Eos # (Auto) (0-0.50) K/uL Baso # (Auto) (0-0.2) K/uL Immature Gran # (Auto) (0.01-0.20) K/uL PT (9.0-12.0) Seconds INR (0.9-1.1) APTT (21.0-31.0) Seconds PTT Ratio Sodium 130 L (136-145) mmol/L Potassium 4.0 (3.5-5.1) mmol/L Chloride 101 (98-107) mmol/L Carbon Dioxide 23 (21-32) mmol/L Anion Gap 6 (3-11) BUN 15 (6-23) mg/dl Creatinine 0.49 L (0.6-1.2) mg/dl Est Cr Clr Drug Dosing 70.2 ml/min Est GFR ( Amer) 103.0 ml/min Est GFR (Non-Af Amer) 88.8 ml/min BUN/Creatinine Ratio 30.6 H (10-20) Glucose 81 (70-99(Fasting)) mg/dl POC Glucose (70-99) mg/dl Calcium 8.7 (8.6-10.3) mg/dl Magnesium 1.7 (1.7-2.4) mg/dl Total Bilirubin 0.5 (0.2-1.0) mg/dl AST 30 (13-39) U/L ALT 19 (7-52) U/L Alkaline Phosphatase 49 (34-104) U/L Troponin I High Sens 3.5 (0-14) pg/ml Total Protein 6.1 (6.0-8.3) gm/dl Albumin 3.7 (3.4-5.0) gm/dl Globulin 2.4 L (2.5-4.0) gm/dl Albumin/Globulin Ratio 1.5 (0.9-2) SARS-CoV-2, RNA, NAAT NEGATIVE (NEGATIVE) Administered Medications Discontinued Medications Acetaminophen (Acetaminophen 325 Mg Tab) 650 mg PO Q4H PRN PRN Reason: Pain or Fever Stop: 07/01/22 15:47 Last Admin: 06/01/22 20:38 Dose: 650 mg Documented By: [id number] Aspirin (Aspirin 81 Mg Ectab) 81 mg PO [facility] Stop: 07/01/22 15:47 Last Admin: 06/02/22 08:38 Dose: 81 mg Documented By: Admin: 06/01/22 17:07 Dose: 81 mg Documented By: ELAINE Clopidogrel Bisulfate (Clopidogrel Bisulfate 75 Mg Tab) 75 mg PO [facility] Stop: 07/02/22 08:59 Last Admin: 06/02/22 08:37 Dose: 75 mg Documented By: ALBA Gemfibrozil (Gemfibrozil 600 Mg Tab) 600 mg PO BID [facility] Stop: 07/01/22 20:59 Last Admin: 06/02/22 08:36 Dose: 600 mg Documented By: Admin: 06/01/22 20:38 Dose: 600 mg Documented By: [id number] Heparin Sodium (Porcine) (Heparin Sod 5,000 Unit/0.5 Ml Vial) 5,000 units SQ Q12 [facility] Stop: 07/02/22 08:59 Last Admin: 06/02/22 08:38 Dose: 5,000 units Documented By: ALBA Sodium Chloride (Nss 1000ml) 1,000 mls @ 50 mls/hr IV .Q20H [facility] Stop: 07/01/22 11:44 Last Infusion: 06/01/22 15:00 Dose: 50 mls/hr Documented By: Admin: 06/01/22 12:03 Dose: 50 mls/hr Documented By: MARIA C Ioversol (Optiray 320 500ml) 101 ml IV ONCE ONE Stop: 06/01/22 11:59 Last Admin: 06/01/22 11:50 Dose: 101 ml Documented By: CHERYL Labetalol HCl (Labetalol Hcl Iv 5 Mg/Ml 20ml) 5 mg IV NOW STA Stop: 06/01/22 13:18 Last Admin: 06/01/22 13:28 Dose: Not Given Documented By: MARIA C Levothyroxine Sodium (Levothyroxine Sodium 88 Mcg Tablet) 88 mcg PO DAILYBB [facility] Stop: 07/02/22 06:29 Last Admin: 06/02/22 05:56 Dose: 88 mcg Documented By: [id number] Pantoprazole Sodium (Pantoprazole 40 Mg Tab) [facility] [place]: 07/02/22 08:59 Last Admin: 06/02/22 08:37 Dose: 40 mg Documented By: ALAB Perflutren Lipid Microsphere (Perflutren Lipid Microsphere (Definity)) 2 ml IV ONCE ONE Stop: 06/02/22 07:15 Last Admin: 06/02/22 07:15 Dose: 2 ml Documented By: HOA Polyethylene Glycol (Polyethylene (Miralax) 17 Gm Pack) [facility] Stop: 07/02/22 08:59 Last Admin: 06/02/22 08:39 Dose: 17 gm Documented By: ALBA Imaging Data Radiologist's Impression: Chest X-Ray 06/01/22 11:42 XR chest 1V portable HISTORY: neuro deficit, acute stroke suspected COMPARISON: Chest 09/19/2021. FINDINGS: There are low lung volumes. No pneumothorax. No pleural effusions. The cardiac silhouette remains mildly enlarged. There are few bibasilar linear densities suggestive of subsegmental atelectasis or scarring. Stable scarlike density again noted within the lingula. No new focal lung consolidations to suggest pneumonia. No evidence for pulmonary edema. IMPRESSION: No significant change compared to the prior study. No acute process. ACT 112: Negative or not required by law. Electronically signed by: Chester Jin M.D. 06/01/2022 12:[address] 06/01/22 11:42 CT OF THE HEAD WITHOUT CONTRAST CLINICAL HISTORY: neuro deficit, acute stroke suspected COMPARISON STUDY: Head CT February 03, 2013. MRI of the brain February 03, 2013. CT DOSE: 614.27 mGy.cm TECHNIQUE: Helical axial images of the head were obtained without IV contrast. Automated exposure control was utilized for the study. A dose lowering technique was utilized adhering to the principles of ALARA. FINDINGS: No acute intracranial hemorrhage, midline shift or mass effect is present. White matter hypodensity suggests small vessel disease. Atrophy is noted. The ventricular system is unremarkable. The basal cisterns are patent. No extra-axial collections are present. There are no findings to suggest acute dural sinus thrombosis or acute territorial infarct. No significant calvarial abnormalities are present. Mucosal thickening of the left sphenoid sinus. IMPRESSION: No acute intracranial findings. ACT 112: Negative or not required by law. Electronically signed by: Markel Foote M.D. 06/01/2022 12:00 PM Head CTA 06/01/22 11:42 HEAD CTA HISTORY: Difficulty speaking. neuro deficit, acute stroke suspected TECHNIQUE: Multiaxial CT images of the head were performed following the intravenous administration of contrast to evaluate the major cerebral vessels. Maximum intensity projection images were also obtained. A dose lowering technique was utilized adhering to the principles of ALARA. COMPARISON: Brain MRI 02/03/2013. FINDINGS: Moderate mucosal thickening and a small fluid level within the left maxillary sinus. The mastoid air cells are clear. The major dural venous sinuses are patent. Mild calcified plaque within the bilateral carotid siphons. There is a hypoplastic right vertebral artery which terminates into the right posterior inferior cerebellar artery. This is considered to be a normal variant. There is also a persistent left posterior circulation. Visualized intracranial internal carotid arteries, distal vertebral arteries, and basilar artery are widely patent. There is no significant stenosis, occlusion, or aneurysm seen within the bilateral ACAs, MCAs, or magistrate assistant. IMPRESSION: No significant stenosis, occlusion, or aneurysm within the [place]. ACT 112: Negative or not required by law. Electronically signed by: Chester Jin M.D. 06/01/2022 12:04 PM Neck CTA 06/01/22 11:42 CT ANGIOGRAPHY OF THE NECK WITH CONTRAST CLINICAL HISTORY: neuro deficit, acute stroke suspected COMPARISON STUDY: Carotid ultrasound February 03, 2013. Technique: CT angiography of the carotid and vertebral arteries was obtained using Optiray and 3D reconstruction on an independent workstation. NASCET crite micheal was utilized. Automated exposure control was utilized for the study. A dose lowering technique was utilized adhering to the principles of ALARA. CT DOSE: 391.21 mGy.cm Findings: There is no cervical lymphadenopathy. No acute cervical spine fracture is noted. The bilateral common carotid, cervical internal carotid and vertebral arteries are patent. The left vertebral artery is dominant and patent. The right vertebral artery is minimal to moderate congenital basis. There is no aneurysm within the neck. There is no dissection within the intracranial vessels. IMPRESSION: No stenosis or dissection within the bilateral common carotid, cervical internal carotid or vertebral arteries. ACT 112: Negative or not required by law. Electronically signed by: Markel Foote M.D. 06/01/2022 12:05 PM Discharge Plan Visit Data Chief Complaint: Stroke/CVA Symptoms Stated Complaint: UNABLE TO SPEAK, DIZZINESS, CONFUSION ED Provider: Cheli Mitchell Discharge Problem: Symptoms of cerebrovascular accident (CVA) Patient Disposition: Admitted As Inpatient Condition: Good Discharge Instructions Interventions: ED Discharge Assessment Last Done: 06/01/22 16:00
--- NOTE | 2022-06-02 11:37 | Neurology Consultation ---
Date of Consultation June 02, 2022 Assessment & Plan (1) TIA (transient ischemic attack): Plan Probable TIA characterized by transient speech change, possible aphasia, associated dizziness, but without associated hemiparesis, potentially localizing to the left cerebral hemisphere. 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 She has been modestly hypertensive in the context of this current hosp italization but does not appear to have a history of chronic hypertension. She does have dyslipidemia, does not appear to be on a statin, she is on gemfibrozil. Current LDL 120. Goal LDL 70 or less. I am uncertain if she would tolerate statins or not. Consider starting Crestor if medically appropriate. Patient should continue with clopidogrel 75 mg/day. I agree with the addition of daily low-dose aspirin. Would recommend dual antiplatelet therapy for 3 weeks, followed by transition back to clopidogrel 75 mg/day. Would also recommend 30-day mobile cardiac outpatient telemetry. If she does have atrial fibrillation, would recommend Eliquis. I also see that she is prescribed Evenity for osteoporosis. It appears that this medication does carry some risk for MS and stroke. Patient may need to discuss switching to an alternative treatment for her osteoporosis with her prescribing physician. Patient should follow-up with her PCP for ongoing evaluation and management of cardiovascular risk factors including her blood pressure, which as above, appears to be modestly elevated. Please call with any questions. History of Present Illness Reason for Consultation: TIA Requesting Physician: CHRISTY Foley Attending Physician: Karis Wade DO History of Present Illness The patient is an 86-year-old female who presented to the emergency department y for further evaluation of a transient episode of difficulty speaking, noted by her daughter. Was apparently using the word okay repeatedly to answer questions and then began using words and improper order and incorrect context. The episode was preceded by a feeling of lightheadedness. The patient does not seem to recall specifics of the episode. She denies other associated symptoms such as headache, vertigo, or weakness or sensory loss on one side of the body. Her symptoms resolved within 20 to 30 minutes and were not present at the time of her assessment in the emergency department. History notable for TIA several years ago, similar symptoms, on clopidogrel. She currently feels fine and does not have any specific neurologic complaint. A CT of the head including CT angiogram of the head and neck were unremarkable. A brain MRI was negative for acute or subacute infarct but did reveal age advanced chronic microvascular ischemic disease. I did independently review these images. Electrocardiogram has revealed a sinus rhythm with first-degree AV block. An echocardiogram was negative for cardioembolic source. A lipid panel revealed an LDL of 120, total cholesterol 187. She is on gemfibrozil as an outpatient. There is a history of intolerance to Zetia. I see that she is on Evenity for osteoporosis as well as medical marijuana for pain. Allergies Allergy/AdvReac Type Severity Reaction Status Date / Time pneumococcal vaccine Allergy Intermediate local Verified 09/02/21 14:55 reaction alendronate sodium AdvReac Intermediate GI upset Verified 09/02/21 14:55 calcium AdvReac Intermediate bloating, Verified 09/02/21 14:55 constipation citalopram AdvReac Intermediate headache Verified 09/02/21 14:55 ezetimibe AdvReac Intermediate elevated Verified 09/02/21 14:55 LFT's Home Medications Medication Instructions Recorded Confirmed Type ascorbic acid (vitamin C) 500 mg 500 mg PO QDL 07/05/18 06/01/22 History tablet (Vitamin C) cholecalciferol (vitamin D3) 25 2,000 unit PO QDL 07/05/18 06/01/22 History mcg (1,000 unit) tablet clopidogrel 75 mg tablet (Plavix) 75 mg PO QAM 07/05/18 06/01/22 History gemfibrozil 600 mg tablet 600 mg PO BID 07/05/18 06/01/22 History polyethylene glycol 3350 17 17 g PO QAM 07/05/18 06/01/22 History gram/dose oral powder (Miralax) cyanocobalamin (vitamin B-12) 1,000 mcg PO DAILY 07/24/21 06/01/22 History 1,000 mcg tablet (Vitamin B-12) fluticasone propionate 50 2 spray intranasal DAILY PRN 07/24/21 06/01/22 History mcg/actuation nasal Congestion spray,suspension levothyroxine 88 mcg tablet 88 mcg PO DAILYBB 07/24/21 06/01/22 History yqutuqydiggo-xdyivmne-adsdqu 1 tab PO DAILY 07/24/21 06/01/22 History tablet (Multivitamin 50 Plus tablet) Medical Marijuana 1 tab PO DIRECTED PRN Pain 09/01/21 06/01/22 History pantoprazole 40 mg tablet,delayed 40 mg PO QAM #30 tabs 09/07/21 06/01/22 Rx release romosozumab-aqqg 105 mg/1.17 mL 210 mg subcut MONTHLY 06/01/22 06/01/22 History subcutaneous syringe (Evenity) Patient History Medical History Anxiety GERD (gastroesophageal reflux disease) History of colon polyps History of gastric ulcer History of pulmonary embolism S/p 6 months of Coumadin therapy Hyperlipidemia Hypothyroidism On anticoagulant therapy plavix daily Transient ischemic attack (TIA) 2014--no deficits--reason for plavix Surgical History History of bilateral tubal ligation History of cataract surgery RIGHT CATARACT on 07/27/18: was given 2mg of IV versed History of colonoscopy History of dilatation and curettage History of esophagogastroduodenoscopy (EGD) History of left breast biopsy benign History of repair of right rotator cuff Family History Mother Family history of diabetes mellitus Daughter Family hx of colon cancer Other No family history of adverse response to anesthesia Social History Smoking Status: Never smoker Second Hand Exposure: No; Do You Dip or Chew Tobacco: No; Tobacco Cessation Education Requested by Patient: No Hx Alcohol Use: No Hx Substance Use: No Preferred Language: Macedonian Communication Ability: Effective Human Resources Project Manager Required: No Beliefs That Will Affect Care: None marital status: Current Living Situation: Alone Current Living Situation Comment: daughter lives near by Other Information That Helps Us Care for You: No Feels Safe at Home: Yes Safety Concerns: Feels Safe At This Time Assistive Devices: None and Glasses Review of Systems Constitutional: no fever and no chills Eyes: no blind spots and no diplopia Ear, Nose, Mouth, Throat: no ear pain and no hearing loss Respiratory: no cough and no dyspnea Cardiovascular: no chest pain and no palpitations Gastrointestinal: no nausea and no vomiting Genitourinary: no dysuria Musculoskeletal: no neck pain and no myalgia Integumentary: no rash and no lesions Neurologic: as per Subjective / HPI Psychiatric: no depression and no anxiety Hematologic / Lymphatic: no easy bleeding and no easy bruising Exam (Neuro) Constitutional: well developed and well nourished; no acute distress Eyes: normal visual stevens by confrontation, PERRL, normal accommodation and EOM intact bilaterally; no fundoscopic abnormality, no nystagmus and no papilledema Cardiovascular: Vessels: normal carotid upstroke; no carotid bruit Neurologic: Oriented to:: Person, Place and Time Memory: Short Term Intact and Remote Intact Attention: Span Intact and Concentration Intact Language: Naming Objects and Repeating Phrases Speech Fluency: negative Dysarthria Speech Aphasia: negative Aphasia Fund of Knowledge: Current Events, Past History and Vocabulary Cranial Nerves: Normal II (Visual stevens full to confrontation, visual acuity normal), III, IV, (Pupils equal round reactive to light and accommodation, eye movements normal), V (Facial sensation intact), VII (There is no facial droop or weakness), VIII (Hearing intact), IX, X (Palate elevates to midline), XI (Shoulder shrug intact) and XII (Tongue protrudes to midline) Motor Strength: Normal Lower Extremities and Normal Upper Extremities; negative Pronator Drift Motor Tone: Normal Lower Extremities and Normal Upper Extremities Muscle Bulk/Involuntary Movements: No Involuntary Movements; negative Muscle Atrophy Sensation: Light Touch Intact, Pain/Temperature Intact, Vibration Intact and Proprioception Intact Coordination: Normal; negative Limited Balance, Dysdiadochokinesia, Finger-Nose Abnormal or Heel-Reich Abnormal Deep Tendon Reflexes: Rt Triceps: 2+, Lt Triceps: 2+, Rt Biceps: 2+, Lt Biceps: 2+, Rt Brachioradialis: 2+, Lt Brachioradialis: 2+, Rt Patellar: 2+, Lt Patellar: 2+, Rt Ankle: 2+ and Lt An kle: 2+ Special Tests: negative Babinski Present Gait: Normal Station and Gait Results & Data Vital Signs (Past 12 Hours) Vital Signs Temp Pulse Pulse Resp BP Pulse Ox O2 Del Method 06/02/22 08:51 Room Air 06/02/22 07:00 69 06/02/22 07:46 36.6 C 64 20 143/88 H 93 Room Air 06/02/22 02:46 36.6 C 69 18 146/85 H 96 Room Air 06/02/22 00:53 76 Laboratory Results WBC 5.70, hemoglobin 13.8, hematocrit 39.2, platelet count 276, sodium 131, potassium 4.4, BUN 18, creatinine 0.52, glucose 95, hemoglobin A1c 5.6, calcium 9.3, AST 30, ALT 19, triglycerides 44, cholesterol 187, LDL 120, VLDL 9, HDL [address] of the head negative for hemorrhage or acute process. CT angiography of the head and neck negative for significant stenosis, occlusion, aneurysm, or dissection. Brain MRI reveals age advanced chronic microvascular ischemic disease and is otherwise negative for acute or subacute infarct. I in dependently reviewed these images. An echocardiogram reveals borderline concentric left ventricular hypertrophy, normal left ventricular wall motion, EF 55 to 60%, grade 1 diastolic dysfunction, moderate aortic valve sclerosis without significant stenosis, trace aortic regurgitation, intact interatrial septum, with no ASD. Normal left atrial size. Electrocardiogram revealed a sinus rhythm with first-degree AV block, 77 bpm. PG Care Time/CCT Total # of Minutes Spent Total Time Spent with Patient: Total time spent is greater than 50% in coordination of care (as documented) at patient's floor/unit and/or counseling patient: 80 minutes Coding Level of Care Code 56496 INT INP/OBS CARE 3/75MIN Diagnoses TIA (transient ischemic attack) G45.9
--- NOTE | 2022-06-02 15:17 | Pharmacy Report ---
- Date of Service June 02, 2022 - Pharmacy CVA/TIA Medication Review Medications to Prevent Stroke handout has been added to the patients discharge packet. Antiplatelet(s) * Plavix 75 mg PO daily + Aspirin 81 mg daily Cholesterol * High intensity statin: recommended to start Crestor, not yet ordered by provider DVT Prophylaxis * SCDs Therapeutic Anticoagulation * No history of Afib/Aflutter noted Type 2 Diabetes * Patient does not have T2DM
[2022-06-02] MEDS ORDERED: STROKE PATIENT DISCHARGE STA (16:49)
--- NOTE | 2022-06-02 16:50 | Discharge Summary ---
Discharge Summary Date of Service June 02, 2022 Notes For Next Care Provider Followup for TIA Consider tighter BP control/lipid control based on age and health goals for prevention secondary TIAs. Medication Changes From Visit Add ASA 81mg to Plavix 75 daily x 3 weeks, then continue Plavix 75mg daily Admission HPI Per Admitting Provider 86-year-old female with PMH hypothyroidism, dyslipidemia, statin intolerance, history of pulmonary embolism s/p 6 months of Coumadin therapy, history of TIA on Plavix, GERD, and other problems listed below who presents to the ED for evaluation of difficulty speaking. History obtained from patient and daughter who is the bedside and review of outpatient PCP records. Patient reports she woke up this morning feeling in her usual state of health. She went for her usual walk with her daughter. Patient reports she started to feel lightheaded and bent over pressing her hands on her knees. Daughter reports that she was asking her if she was okay and she would not respond. Patient was able to walk home. Upon returning home, patient was saying "ok" to all questions asked by her daughter. Patient then began saying words however not in the correct order or context. This was occurring ~ 11:15-11:30. Patient was then brought to the ED for further evaluation. Stroke alert was called. Patient's symptoms lopez bsequently resolved and she was not felt to be a tPA candidate. Patient denies any associated facial droop, unilateral weakness, numbness, tingling. Patient reports she otherwise has been feeling well recently. Denies chest pain and shortness of breath. No abdominal pain, nausea, vomiting, diarrhea. Denies fevers and chills. No urinary symptoms. In the ED, head CT, head and neck CTAs are unremarkable for acute findings. Labs show chronic hyponatremia with Na+ 130, otherwise unremarkable. Principal Dx & Hospital Course #1 = Principal Diagnosis (1) TIA (transient ischemic attack): (2) Chronic hyponatremia: (3) Hypothyroidism: (4) Hyperlipidemia: (5) GERD (gastroesophageal reflux disease): Plan She was admitted to telemetry with workup including Echo revealed EF 555-60%, grade I diastolic dysfunction and no evidence of interatrial shunt. Head CT, head and neck CTAs unremarkable. Symptoms resolved spontaneously. She was given dual antiplatelet therapy, however, is notably intolerant of statins. She was diagnosed with probable TIA characterized by transient speech change, possible aphasia, associated dizziness but without associated hemiparesis, potentially localizing to the left cerebral hemisphere. There was no evidence of acute or subacute stroke on MRI although patient does have advanced chronic microvascular ischemic disease. Neuro recommended to continue Plavix 75mg daily along with ASA 81mg daily. DAPT was recommended for total 3 weeks with transitio n to Plavix monotherapy indefinitely. Outpatient event monitor was also recommended. Evenity for osteoporosis is being taken and does carry some risk for [place] and stroke. She was encouraged to discuss switching to an alternative treatment for her osteoporosis with her prescribing physician. Follow-up with her PCP was recommended for ongoing evaluation and management of cardiovascular risk factors such as blood pressure and cholesterol. Discharge Exam no gross focal neurologic deficit ambulating independently mentating clearly, oriented Updated Medication List Medication Instructions Recorded Confirmed Type ascorbic acid (vitamin C) 500 mg 500 mg PO QDL 07/05/18 06/01/22 History tablet (Vitamin C) cholecalciferol (vitamin D3) 25 2,000 unit PO QDL 07/05/18 06/01/22 History mcg (1,000 unit) tablet clopidogrel 75 mg tablet (Plavix) 75 mg PO QAM 07/05/18 06/01/22 History gemfibrozil 600 mg tablet 600 mg PO BID 07/05/18 06/01/22 History polyethylene glycol 3350 17 17 g PO QAM 07/05/18 06/01/22 History gram/dose oral powder (Miralax) cyanocobalamin (vitamin B-12) 1,000 mcg PO DAILY 07/24/21 06/01/22 History 1,000 mcg tablet (Vitamin B-12) fluticasone propionate 50 2 spray intranasal DAILY PRN 07/24/21 06/01/22 History mcg/actuation nasal Congestion spray,suspension levothyroxine 88 mcg tablet 88 mcg PO DAILYBB 07/24/21 06/01/22 History pvklmyqdjwec-xcxahjeu-kbbroj 1 tab PO DAILY 07/24/21 06/01/22 History tablet (Multivitamin 50 Plus tablet) Medical Marijuana 1 tab PO DIRECTED PRN Pain 09/01/21 06/01/22 History aspirin 81 mg tablet,delayed 81 mg PO QAM #30 tabs 06/02/22 Rx release Hospital Stay Data Consultations 06/01/22 12:59 ED Decision to Admit Stat 06/01/22 15:48 Consult Neurology Routine Diagnostic Imagining Performed 06/01/22 11:42 CT angio head w con Stat CT angio neck with con Stat CT head/brain wo con Stat 06/01/22 14:02 MR brain wo con Routine Pending Results Patient Have Any Pending Studies at Discharge: No Discharge Instructions Given to Patient (Per Discharging Provider) Please take all medications as instructed on discharge list below. You were felt to clinically have had a mini-stroke or TIA. To prevent future episodes, you are being placed on aspirin (baby or 81mg) to take in conjunction with Plavix x 3 weeks, then drop the aspirin and continue with Plavix indefin itely. There was some previous data that suggested a possible interaction with proton pump inhibitors such as protonix and Plavix, however, the efficacy is the same in the end. If you are not interested in continuing the protonix it would eliminate all possibility for a chance of an interaction. This has been removed from your medication list. You are takind Evenity, which is known to have a black box warning increasing your risk of stroke or heart attack. It is recommended you stop taking this medication and work to find an alternative therapy. Please follow-up with your primary care physician within one week of discharge from the hospital to discuss recent events and these medication changes. It was a pleasure taking care of you! Please call if you have any questions or problems. You can reach a [facility] hospitalist on duty at [facility] 24 hours a day by calling [phone]. Take care of yourself. Karis Wade, [facility] Hospitalist Total Time Total Time Spent Total Time Spent (In Minutes): 60
--- NOTE | 2022-06-03 10:28 | Pharmacy Report ---
Pharmacist Stroke Counseling - Date of Service June 03, 2022 - Scope: Pharmacy has been consulted to provide medication discharge counseling for this patient admitted with [ischemic stroke] [hemorrhagic stroke] [transient ischemic attack] as per the Pharmacist Discharge Counseling for Stroke Patients Protoc . - Medications on Discharge: Home Medications Medication Instructions Recorded Confirmed ascorbic acid (vitamin C) 500 mg 500 mg PO QDL 07/05/18 06/01/22 tablet (Vitamin C) cholecalciferol (vitamin D3) 25 2,000 unit PO QDL 07/05/18 06/01/22 mcg (1,000 unit) tablet clopidogrel 75 mg tablet (Plavix) 75 mg PO QAM 07/05/18 06/01/22 gemfibrozil 600 mg tablet 600 mg PO BID 07/05/18 06/01/22 polyethylene glycol 3350 17 17 g PO QAM 07/05/18 06/01/22 gram/dose oral powder (Miralax) cyanocobalamin (vitamin B-12) 1,000 mcg PO DAILY 07/24/21 06/01/22 1,000 mcg tablet (Vitamin B-12) fluticasone propionate 50 2 spray intranasal DAILY PRN 07/24/21 06/01/22 mcg/actuation nasal Congestion spray,suspension levothyroxine 88 mcg tablet 88 mcg PO DAILYBB 07/24/21 06/01/22 zqsqisjhimco-cixwqujh-mgdddy 1 tab PO DAILY 07/24/21 06/01/22 tablet (Multivitamin 50 Plus tablet) Medical Marijuana 1 tab PO DIRECTED PRN Pain 09/01/21 06/01/22 New Rx's Medication Instructions Recorded aspirin 81 mg tablet,delayed 81 mg PO QAM #30 tabs 06/02/22 release - Action: The above medications, specifically ones for stroke treatment/prophylaxis, have been reviewed in detail with the patient and/or patient small business representative(s) prior to discharge. This includes indication, common adverse reactions, drug interactions, and medication administration. Medication counseling has been employed using the teach-back method to ensure understanding. - Outcome: The patient and/or patient small business representative(s) have demonstrated understanding of the medications. Additional comments: Patient returned call this AM. Reviewed discharge instructions to take aspirin for 3 weeks with plavix, after 3 weeks discontinue the aspirin and continue plavix after that. No questions per the patient, informed she is welcome to call back with questions if they arise. Thank you for allowing pharmacy to be involved in the care of this patient. Please call [phone] with any additional questions
== END 2022-06-02 17:30 | disposition home or self-care (01) ==
LOC: EDINP 11:32 → ED 11:32 → SUATTDRO 13:06 → 2S 16:00